=== PATIENT | female | born 1985 | race Caucasian/White ===

== ENCOUNTER → 2017-12-26 07:05 | Outpatient (CLI) | payer OTHER, SELFPAY ==
[2017-12-26 07:39] LABS: hCG Titer Quant., Serum 569 mIU/mL (<9 non-preg)
== END ==
PROVIDERS: Family Provider Family Medicine; PCP Family Medicine; Visit Provider Obstetrics & Gynecology Reproductive Endocrinology
DX: Z32.00 Encounter for pregnancy test, result unknown (principal)
CPT/HCPCS: 36415; 84702

== ENCOUNTER → 2017-12-28 07:13 | Outpatient (CLI) | payer OTHER, SELFPAY ==
[2017-12-28 07:59] LABS: hCG Titer Quant., Serum 1350 mIU/mL (<9 non-preg)
[2017-12-29 07:02] LABS: Thyroid Stim Hormone (TSH) 3.71 uIU/mL (0.358-3.74)
== END ==
PROVIDERS: Family Provider Family Medicine; PCP Family Medicine; Visit Provider Obstetrics & Gynecology Reproductive Endocrinology
DX: Z32.00 Encounter for pregnancy test, result unknown (principal)
CPT/HCPCS: 36415; 84443; 84702

== ENCOUNTER → 2018-01-06 10:30 | Outpatient (CLI) | payer OTHER, SELFPAY ==
[2018-01-06 12:14] LABS: hCG Titer Quant., Serum 19298 mIU/mL (<9 non-preg)
== END ==
PROVIDERS: Family Provider Family Medicine; PCP Family Medicine; Visit Provider Obstetrics & Gynecology
DX: O20.0 Threatened abortion (principal); Z3A.00 Weeks of gestation of pregnancy not specified
CPT/HCPCS: 36415; 84702

== ENCOUNTER 2018-07-02 15:15 | Outpatient (CLI) | payer OTHER, SELFPAY ==
[2018-07-02 15:36] VITALS: BMI 28.0
[2018-07-02 16:33] LABS: Mucous, Urine 0 SEEN /hpf (<or=2+); Squamous Epithelial Cells - UA 0 SEEN /hpf (5-10); White Blood Cells 0 SEEN /hpf (0-5)
[2018-07-02 16:37] LABS: Color, Urine Yellow (Yellow); Glucose, Dipstick Normal (Normal); Ketone-Dipstick Negative (Negative); Leukocyte Esterase-Dipstick Negative /ul (Negative); Nitrite-Dipstick Negative (Negative); Occult Blood-Urine Negative /ul (Negative); Protein-Dipstick Negative (Negative); Specific Gravity, Urine 1.005 (1.002-1.030); Urine Bilirubin Dipstick Negative (Negative); Urine Clarity Clear (Clear); Urine Urobilinogen Normal (Normal)
[2018-07-02 16:44] LABS: Bacteria RARE /hpf (None Seen); Red Blood Cells-Urine 0-5 SEEN /hpf (0-5)
[2018-07-02] MEDS: guaiFENesin 10 ML UDC (200MG/10ML) PO (16:53)
--- NOTE | 2018-07-04 18:03 | OB.TRI.NOTE ---
History of Present Illness Date of Service: 07/02/18 Was patient seen by the physician?: No Reason For Visit: BLEEDING Date of Service: 07/02/18 Final SELIN: 09/03/18 Final SELIN Source: US <20 weeks Gestational age: 31 Weeks and 2 Days Allergies No Known Allergies Allergy (Unverified 05/02/18 09:21) - Pertinent Past Medical History Medical History: Past Medical History (Last Reviewed 06/20/18 @ 08:07 by Marianne Calixto) Hyperthyroidism and not yet delivered NST - FHR Rate Baby A Baseline: 120 bpm Variability:: Moderate Accelerations:: 15 x 15 Decelerations:: None NST Reactive:: Yes, Appropriate for gestational age FHR Category:: Category I Uterine Activity:: quiet Impression/Plan 32-year-old 2 para 1 female at 31 weeks. High risk multigravida female with complaint of vaginal bleeding and cramping here for possible threatened labor. Patient was assessed by nursing staff. She had a cervical exam which revealed that she was not dilated and there is no blood on the exam. Patient had a significant cough but no fever. She had been ill for a couple of days. She was given some cough syrup and was sent home to follow-up in the office as needed. She understood to call the office if her illness worsened or she was febrile and we would obtain a chest x-ray. She had no evidence of labor and the heart tones were category 1. Patient was comfortable with plan.
== END 2018-07-02 17:05 | disposition home or self-care (01) ==
LOC: WPOUT 15:25 → WP 15:26
PROVIDERS: Obstetrics & Gynecology; Family Provider Family Medicine; PCP Family Medicine; Referring Provider Obstetrics & Gynecology; Visit Provider Obstetrics & Gynecology
DX: O47.03 False labor before 37 completed weeks of gestation, third trimester (principal); O99.89 Other specified diseases and conditions complicating pregnancy, childbirth and the puerperium; R05 Cough; O99.283 Endocrine, nutritional and metabolic diseases complicating pregnancy, third trimester; E05.90 Thyrotoxicosis, unspecified without thyrotoxic crisis or storm; Z3A.31 31 weeks gestation of pregnancy
CPT/HCPCS: 59025; 59050; 81001; 99218; G0378

== ENCOUNTER 2018-09-10 17:05 | Inpatient (IN) | payer OTHER, SELFPAY ==
[2018-09-10 17:23] VITALS: BMI 30.3
[2018-09-10] MEDS: miSOPROStol 25 MCG TABLET VAGINAL (17:34)
[2018-09-10 18:17] LABS: Hematocrit 38.3 % (37-47); Hemoglobin 13.3 g/dl (12.0-15.0); Mean Corp Hgb Conc 34.7 g/gl (32-36); Mean Corpuscular Hgb 30.9 pg (27.0-32.0); Mean Corpuscular Volume 89.1 fL (81-99); Mean Platelet Vol. 10.5 fl (6.2-12.0); Platelet Count 209 K/mm3 (150-450); RBC Distribution Width CV 13.3 % (11.6-14.6); White Blood Count 11.7 K/mm3 (4.4-11.0)
[2018-09-10 18:18] LABS: Scan Indicated on CBC? Y/N NO
[2018-09-10] MEDS: Lactated Ringers 1,000 ML 50 ML IV (19:56)
[2018-09-10] MEDS: 0.9% Normal Saline 100 ML IV.SOLN. INTRA-UTER (20:44)
--- NOTE | 2018-09-10 21:00 | PCM.HP.OB ---
History Date of Admission: 09/10/18 Final SELIN: 09/03/18 Final SELIN Source: US <20 weeks Gestational age: 41 Weeks and 0 Days History of this : This is a 32 year-old, G 2P1 @ 41 weeks for induction of labor. No ctxs. Good FM. No VB/LOF. result of in vitro h/o one very early SAB h/o mild hypothyroidism Medical History: Medical History (Last Reviewed 08/07/18 @ 08:10 by Marianne Calixto) Hyperthyroidism E05.90 and not yet delivered Z34.90 Allergies No Known Allergies Allergy (Verified 09/10/18 17:25) Home Medications: Home Medications Levothyroxine Sodium [Synthroid] 50 mcg PO DAILY 07/02/18 Vits [Prenatabs FA] 1 tablet PO DAILY 07/02/18 Smoking Status: Never smoker Alcohol: None Number of Fetus(es): 1 Heart Tracing: normal baseline, moderate variability, + accels. TOCO Analysis: no regular ctxs History Past Pregnancies: Past Pregnancies Delivery Date Name GA/Weeks Outcome Route Weight Gender Labor Length Anesthesia Delivery Location Provider FOB Expected Infant Delivery Method: Spontaneous Vaginal Describe any other labor & delivery plans:: epidural Review of Systems Constitutional: Denies: Anorexia, Chills HEENT: Denies: Difficulty Hearing Cardiovascular: Denies: Chest Pain Respiratory: Denies: Cough Skin: Denies: Rash Physical Exam General: Alert, Cooperative, No apparent distress Cardiovascular: Regular rate, Regular Rhythm Lungs: Clear to auscultation Abdomen: Soft, Non-Distended, Distended Extremities:: No edema 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 Estimated gestational size: Appropriate for gestational size Presentation: Cephalic Cervix Dilation (cm): 1 Station: -1 Effacement (%): 70 - soft, posterior Assessment/Plan All Active Problems (Last Reviewed 08/07/18 @ 08:10 by Marianne Calixto) Segmental and somatic dysfunction of cervical region (Acute) Segmental and somatic dysfunction of thoracic region (Acute) Segmental and somatic dysfunction of pelvic region (Acute) Segmental and somatic dysfunction of sacral region (Acute) Segmental and somatic dysfunction of lumbar region (Acute) This is a 32 year-old, @ 41 weeks for induction of labor had one dose of cytotec for cervical ripening, not feeling many contractions yet. Currie placed over stylette in usual sterile fashion and inflated to 30 cc. Placement over internal os confirmed. Patient and fetus tolerated well EFW < 4500 gm, pelvis clinically adequate to expect vaginal delivery Epidural, NO or nubain prn
[2018-09-10] MEDS: Ondansetron 4 MG/2 ML Vial IV (22:43)
[2018-09-10] MEDS: Oxytocin 30 units/NS 500 ml 30 UNITS/500 ML IV.SOLN IV (23:02)
[2018-09-10] MEDS: Labetalol 100 MG Tablet PO (23:30)
[2018-09-11] MEDS: Nalbuphine 10 MG/ML Ampul IV (02:07)
[2018-09-11] MEDS: Lactated Ringers 1,000 ML 50 ML IV ×4 (05:13→19:50)
--- NOTE | 2018-09-11 08:35 | PCM.PN.BLA ---
Progress Note Patient denies headache, visual changes, or epigastric pain. Contraction pain is approximately a 4 out of 10. She does appreciate them but does not think they are very painful. Abdomen soft, nontender, gravid Extremities: Trace edema, 2+ DTRs, no clonus Cervix is 5, 70, -1 station, head well applied. Artificial rupture membranes performed with return of small amount of clear fluid. IUPC placed Heart tones show normal baseline with moderate variability and no recurrent decelerations. Tocometer shows contractions every 2-3 minutes per 32-year-old female with now Pitocin and artificial rupture membranes induction of labor. Status post 1 dose of vaginal Cytotec and Currie cervical ripening. Blood pressure is trending back up after 1 dose of labetalol. Patient plans to get epidural now so will not give another dose of antihypertensives unless blood pressure remains elevated after epidural, or blood pressures enter the severe range. Continue expectant management. Titrate Pitocin as needed.
[2018-09-11] MEDS: Ondansetron 4 MG/2 ML Vial IV ×2 (09:17→17:15)
[2018-09-11] MEDS: fentaNYL-bupivacaine (epidural) 100 ML BAG EPIDURAL ×3 (09:45→18:25)
[2018-09-11] MEDS: ePHEDrine Sulfate 50 MG/ML Ampul SC (11:20)
[2018-09-11] MEDS: Sodium Citrate/Citric Acid 30 ML UDC PO (22:36)
[2018-09-11] MEDS: Cefazolin 2 GM in 0.9% Normal Saline 100 ML IV (22:45)
[2018-09-11] MEDS: Oxytocin 30 units/NS 500 ml 30 UNITS/500 ML IV.SOLN 167 UNITS IV (23:06)
[2018-09-11] MEDS: Ketorolac 30 MG/ML Syringe IV (23:35)
--- NOTE | 2018-09-11 23:48 | PCM.OB.CSR ---
Delivery Classification: SASHA Final SELIN: 09/03/18 Final SELIN Source: US <20 weeks Gestational age: 41 Weeks and 1 Days Indications for : - - arrest of descent Description of Procedure: Preop diagnosis: 41-week , meconium stained fluid, arrest of descent Operative diagnosis: Same Surgeon: Venessa Siddiqui MD Supervisor [employer]:Venecia MARIE Procedure: Primary low transverse section Via Pfannenstiel skin incision The patient was complete and pushed for approximately 45 minutes. There is no significant descent. She was then allowed to labor down. She began to push again. She pushed for a total of over 3 hours. At the end of that time, she made no significant descent. The station was still plus 1 out of 5 station. Her efforts were adequate. The head was asynclitic. The patient had undergone multiple position changes and pushed in multiple different positions. The fluid had progressed to meconium-stained. At this point discussed with the patient and her risk benefits and alternatives to section. They desire to proceed. The patient was taken to the operating room. She was prepped and draped in the dorsal supine position with a leftward tilt. A Pfannenstiel skin incision was made approximately 2 cm above the symphysis pubis and carried through to underlying layer fascia with the scalpel. The fascia was incised incised in the midline and extended laterally with the Ferguson scissors. The fascia was dissected off the rectus muscles with blunt and sharp dissection. The rectus muscles were in the midline and the peritoneum was entered bluntly. The peritoneal incision was stretched and the bladder blade was placed. The uterine incision was made in a low transverse fashion with the scalpel and extended superiorly and inferiorly with blunt dissection. Moderate meconium-stained fluid returned. With some difficulty I got my head under the vertex. I then brought it up steadily until the suction broke. The 's head was brought to the incision in the flexed position and delivered without difficulty. The remainder of the infant was delivered with gentle traction and fundal pressure in the standard fashion. The mouth and nares were bulb suctioned. The cord was clamped and cut as the infant was stimulated. Cord clamping was only delayed about 20 seconds, at that point the was still somewhat holding his breath and the decision was made to cut the cord and handed him off for possible resuscitation. The was handed off to the waiting nursing staff. As he arrived at the warmer, he began a vigorous cry. The placenta was delivered with fundal massage and gentle traction in the standard fashion. The uterus was exteriorized and cleared of all clots and debris. There was a cervical laceration extending near the midline of the cervix inferiorly approximate 3 cm long. Care was taken to ensure the bladder was dissected off adequately around this. This laceration was then oversewn with #1 Vicryl suture and then a second imbricating layer. The uterine incision was then closed with #1 Vicryl in a running locked fashion. A second layer of the same suture was used in an imbricating fashion. The incision was examined and was found to be hemostatic. The uterus was placed back into the peritoneal cavity and hemostasis was again confirmed. The rectus muscles were examined and any bleeding was Bovie cauterized. The parietal peritoneum and rectus muscles were closed en bloc with an 0 Vicryl running suture. The surgical teams outer gloves were then changed. The rectus fascia was examined and any bleeding was Bovie cauterized and the rectus fascia was closed with 1 Vicryl suture in a running standard fashion. The subcutaneous tissue was examining and any bleeding was Bovie cauterized. The subcutaneous tissue was reapproximated with 3-0 Vicryl suture. The skin was closed in a subcuticular fashion with Monocryl suture. Performed the entire procedure with assistance. All sponge, lap, and needle counts were correct. The patient was taken to her room for recovery in a stable condition. Amniotic Membrane Rupture Type: Artificial Amniotic Fluid Description: Lightly stained meconium - originally clear Placenta Disposition: Sent to Pathology Drain: Currie to straight drain Fluids Replaced: 1000cc Cord Entanglement: Around neck x 1, loose Nuchal Cord Compression: Without compression Cord Vessel Description: 3 Vessels Esitmated Blood Loss (ml): 800 Infant Gender: Male Delayed cord clamping: No Complications: None - Admit VTE Documentation VTE Present on Admission: No VTE Mechan Device Prophylaxis: SCD's VTE Pharm Prophylaxis ordered?: No Reason prophylaxis not ordered:: Procedure Not Indicated
[2018-09-11 23:55] VITALS: BP 128/71; BP 150/90; PULSE 79; RESP 18; TEMP 36.9; O2SAT 97
[2018-09-11] MEDS: Lactated Ringers 1,000 ML 100 ML IV (23:55)
[2018-09-12] VITALS (23 sets, daily range): BP systolic 100–150; BP diastolic 50–90; PULSE 70–88; RESP 16–18; TEMP 36.6–37.3; O2SAT 95–99
--- NOTE | 2018-09-12 02:23 | NURSING ---
@ 0210 epidural catheter removed; blue tip intact
[2018-09-12] MEDS: Ketorolac 30 MG/ML Syringe IV ×3 (06:11→18:34)
[2018-09-12] MEDS: 0.9% Saline Lock 10 ML Syringe IV ×3 (06:12→18:34)
[2018-09-12] MEDS: Levothyroxine 50 MCG Tablet PO (06:12)
[2018-09-12 06:59] LABS: Hematocrit 31.8 % (37-47); Hemoglobin 10.8 g/dl (12.0-15.0); Mean Corpuscular Hgb 30.9 pg (27.0-32.0); Mean Corpuscular Volume 91.1 fL (81-99); Mean Platelet Vol. 10.8 fl (6.2-12.0); Platelet Count 162 K/mm3 (150-450); RBC Distribution Width CV 13.4 % (11.6-14.6); RBC Distribution Width SD 43.1 fl (35.1-43.9); Red Blood Count 3.49 M/mm3 (4.2-5.4); White Blood Count 17.6 K/mm3 (4.4-11.0)
[2018-09-12 07:00] LABS: Scan Indicated on CBC? Y/N NO
--- NOTE | 2018-09-12 07:51 | PCM.PN.OB ---
Subjective: pt seen at bedside, doing well. pt reports good pain control. lochia mild. breast feeding. Denies CP, SOB, dizziness. - Physical Exam General: Alert Abdomen: Soft, Non-Distended, - - fundus firm Extremities: No Calf Tenderness Vital Signs Temp Pulse Resp BP Pulse Ox 97.9 F 84 17 110/63 97 09/12/18 06:10 09/12/18 07:25 09/12/18 07:25 09/12/18 06:10 09/12/18 07:25 Oxygen Delivery Method Room Air Weight: 82.7 kg Body Mass Index (BMI) 30.3 Intake and Output for Last 24 Hours 09/10/18 09/11/18 09/12/18 23:59 23:59 23:59 Intake Total 6297 / 6297 1497 / 1497 Output Total 1425 / 1425 900 / 900 Balance 4872 / 4872 597 / 597 Laboratory Tests Past 24 Hrs 09/12/18 06:20 WBC 17.6 H RBC 3.49 L Hgb 10.8 L Hct 31.8 L MCV 91.1 MCH 30.9 MCHC 34.0 RDW 13.4 RDW Differential 43.1 Plt Count 162 MPV 10.8 Medical Necessity - Tobacco Use Smoking Status: Never smoker Assessment/Plan All Active Problems (Last Reviewed 08/07/18 @ 08:10 by Marianne Calixto) Segmental and somatic dysfunction of cervical region (Acute) Segmental and somatic dysfunction of thoracic region (Acute) Segmental and somatic dysfunction of pelvic region (Acute) Segmental and somatic dysfunction of sacral region (Acute) Segmental and somatic dysfunction of lumbar region (Acute) POD#1, doing well routine care pain mgmt labs reviewed yogesh baum and ambulation later today.
[2018-09-12] MEDS: Lactated Ringers 1,000 ML 100 ML IV (10:04)
[2018-09-12] MEDS: Senna/Docusate Sodium 1 Tablet PO (10:04)
--- NOTE | 2018-09-13 | PLAC_PTH ---
PATIENT: BINTA MORATAYA LOC: [facility] U#:[id number] AGE/SX: 32/F ROOM: WP004 RE09/10/[address]: Dr. Venessa Siddiqui MD : 1985 BED: 1 DIS: 09/14/2018 SPEC #: [id number] RECD: 09/13/18 16:00 STATUS: STELLA REJohnathon #: [id number] SALOMON: 09/13/18 00:[address]: Venessa Siddiqui DEPT: SURGICAL PATHOLOGY RECD BY: Alexander Bello ENTERED: 09/14/18 13:39 SP TYPE: PLACENTA OTHR DR: Dr. Uli Hightower MD Tissues: Placenta, NOS Procedures: Surgery Specimen Level V HEADER OPERATION: Primary section PRE-OP DIAGNOSIS: Meconium TISSUE SUBMITTED: Placenta MICROSCOPIC DIAGNOSIS Placenta: Placental disc - third trimester placenta (526 gm). - Focal areas of intraparenchymal hemorrhage (1 cm in greatest dimension). - Focal acute vasculitis of subamniotic blood vessels. Membranes - mild acute chorioamnionitis. - A few pigment laden macrophages consistent with meconium staining. Umbilical cord - three blood vessels and no pathologic diagnosis. DORIAN:gracia 09/15/18 MICROSCOPIC DESCRIPTION Slides are reviewed. GROSS DESCRIPTION SPECIMEN: PLACENTA / CLINICAL INFORMATION: A. Weight: 3.535 kg B. Gestational Age: 41 weeks C. Sex: Male PLACENTAL WEIGHT (POST FIXATION): 526 gm PLACENTAL DIMENSIONS: 19 x 20 x 3 cm PLACENTAL SHAPE: Usual ovoid PLACENTAL WEIGHT FOR GESTATIONAL AGE: Within 10-99th percentile MEMBRANES - Present A. Insertion: Marginal B. Site of rupture from edge: 3 cm from edge of placental disc C. Color of membrane: Mobley-mucoidy D. Abnormalities: None UMBILICAL CORD - Present A. Color: Mobley-rascon B. Insertion: Central C. Length: 29 cm D. Diameter: 1 cm E. Number of vessels: Three F. Abnormalities: None PLACENTAL DISC - Present A. Color of surface: Mobley-rascon B. surface abnormalities: None C. Maternal cotyledons: Intact with minimal tears D. Attached retro placental clot: No clot E. Cut surface: Dark red and spongy F. Lesions: Sections reveal two mobley, indurated lesions each measuring 1 cm in greatest dimension. G. Separate clot: Absent SECTIONS SUBMITTED: 1. Membrane roll 2. Cord, maternal end 3. Cord, end 4. Placental disc, and maternal surfaces, lesion 5. Placental disc, and maternal surfaces, lesion 6. Placental disc, and maternal surfaces DORIAN:gracia 09/14/18 TC:2 CPT: 83133
[2018-09-13] MEDS: 0.9% Saline Lock 10 ML Syringe IV ×4 (00:05→18:28)
[2018-09-13] MEDS: Ketorolac 30 MG/ML Syringe IV ×4 (00:05→18:27)
[2018-09-13] MEDS: Senna/Docusate Sodium 1 Tablet PO ×2 (00:05→09:29)
[2018-09-13 01:50] VITALS: BP 111/65; PULSE 73; RESP 16; TEMP 36.5; O2SAT 96
[2018-09-13] MEDS: Levothyroxine 50 MCG Tablet PO (06:09)
--- NOTE | 2018-09-13 08:37 | PCM.PN.OB ---
Subjective: pain well controlled, average lochia, no N/V. - Physical Exam General: Alert, Cooperative, No apparent distress Abdomen: Soft, Non-Distended, Tender - appropriately Extremities: Edema - 1+ Skin: Incision - bandage clean, dry and intact Vital Signs Temp Pulse Resp BP Pulse Ox 97.7 F L 73 16 111/65 96 09/13/18 01:50 09/13/18 01:50 09/13/18 01:50 09/13/18 01:50 09/13/18 01:50 Oxygen Delivery Method Room Air Weight: 82.7 kg Body Mass Index (BMI) 30.3 Intake and Output for Last 24 Hours 09/11/18 09/12/18 09/13/18 23:59 23:59 23:59 Intake Total 6297 / 6297 2357 / 2357 Output Total 1425 / 1425 2500 / 2500 Balance 4872 / 4872 -143 / -143 Medical Necessity - Tobacco Use Smoking Status: Never smoker Assessment/Plan All Active Problems (Last Reviewed 08/07/18 @ 08:10 by Marianne Calixto) Segmental and somatic dysfunction of cervical region (Acute) Segmental and somatic dysfunction of thoracic region (Acute) Segmental and somatic dysfunction of pelvic region (Acute) Segmental and somatic dysfunction of sacral region (Acute) Segmental and somatic dysfunction of lumbar region (Acute) POD#2 doing well likely home tomorrow
[2018-09-13] MEDS: Acetaminophen 500 MG Tablet 1000 MG PO ×2 (09:29→20:04)
[2018-09-13 09:33] VITALS: BP 122/83; PULSE 66; RESP 16; TEMP 37.3
[2018-09-13 15:03] VITALS: BP 121/83; PULSE 70; RESP 16; TEMP 37.2
[2018-09-13 20:07] VITALS: BP 136/76; PULSE 70; RESP 18; TEMP 36.9; O2SAT 95
[2018-09-13] MEDS: Docusate Sodium 100 MG Capsule PO (21:41)
[2018-09-14] MEDS: Naproxen 250 MG Tablet PO (00:21)
[2018-09-14 02:32] VITALS: BP 133/77; PULSE 55; RESP 16; TEMP 36.6; O2SAT 95
[2018-09-14] MEDS: Levothyroxine 50 MCG Tablet PO (06:04)
--- NOTE | 2018-09-14 08:30 | DCINST_ITS ---
Discharge Diet: No Restrictions Discharge Activity: May not drive while taking narcotic pain medications., May Shower May resume sexual activity in: 4-6 weeks Weight Bearing Status: Weight bearing as tolerated Call your doctor if your incision/area has: Continuous Slow Oozing, Sudden Increased Bleeding, Increased Pain/ Swelling, Increased Redness, Foul Smelling Discharge, Swelling at the incision site Additional Instructions: If you experience any of the following, contact your healthcare provider. * Bleeding that soaks a pad every hour for 2 hours * Fever 100.4 or higher * Unrelieved incision or abdominal pain * Swelling, redness, discharge or bleeding from your incision or episiotomy site * Your incision begins to separate * Problems urinating (including inability to urinate or burning while urinating). * Visual changes * Severe headache * Flu-like symptoms * Pain or redness in one of both of your breasts * Pain, warmth, tenderness or swelling in your legs, especially the calf area * Frequent nausea and vomiting * Symptoms of depression or anxiety If you experience any of the following, call 911 or go to the nearest Emergency Room. * Chest pain * Problems breathing * Seizure activity * Partial or complete paralysis of a body part, slurred speech, weakness or drooping of the face, or a sudden inability to walk or hold your balance Allergies/Adverse Reactions: Allergies No Known Allergies Allergy (Verified 09/10/18 17:25) Medications to take at Discharge Levothyroxine Sodium [Synthroid] 50 mcg PO DAILY 07/02/18 Vits [Prenatabs FA ] 1 tablet PO DAILY 07/02/18 Oxycodone HCl/Acetaminophen [Percocet 5/325] 1 tab PO Q6H PRN PRN 3 Days #10 tab 09/14/18 The following prescriptions were given: Oxycodone HCl/Acetaminophen [Percocet 5/325] 1 tab PO Q6H PRN PRN 3 Days #10 tab PRN Reason: Pain Follow-Up: Call to make an appointment with your doctor for an incision check in 1-2 weeks. You will also need a 6 week post- follow up appointment. Test results from this visit will be discussed in further detail at your follow- up appointment, if applicable. Primary Care Physician: Uli Hightower MD [Primary Care Provider] -
--- NOTE | 2018-09-14 08:30 | PCM.PN.OB ---
Subjective: No complaints - Physical Exam General: Alert, Oriented x3 Abdomen: Soft, Non Tender, Non-Distended - ff mid & @ umbilicus; incision - bandage c/d/i Extremities: No Calf Tenderness Vital Signs Temp Pulse Resp BP Pulse Ox 97.8 F 55 L 16 133/77 H 95 09/14/18 02:32 09/14/18 02:32 09/14/18 02:32 09/14/18 02:32 09/14/18 02:32 Oxygen Delivery Method Room Air Weight: 182 lb 5.156 oz Body Mass Index (BMI) 30.3 Intake and Output for Last 24 Hours 09/12/18 09/13/18 09/14/18 23:59 23:59 23:59 Intake Total 2357 / 2357 Output Total 2500 / 2500 Balance -143 / -143 Medical Necessity - Tobacco Use Smoking Status: Never smoker Assessment/Plan All Active Problems (Last Reviewed 08/07/18 @ 08:10 by Marianne Calixto) Segmental and somatic dysfunction of cervical region (Acute) Segmental and somatic dysfunction of thoracic region (Acute) Segmental and somatic dysfunction of pelvic region (Acute) Segmental and somatic dysfunction of sacral region (Acute) Segmental and somatic dysfunction of lumbar region (Acute) POD#3 D/c home
[2018-09-14 10:00] VITALS: BP 120/70; PULSE 72; RESP 18; TEMP 37.1
[2018-09-14 10:55] VITALS: BP 120/70; PULSE 72; RESP 16; TEMP 37.1
--- NOTE | 2018-09-15 08:36 | DS.PCM_ITS ---
Discharge Date and Diagnosis Date of Admission: 09/10/18 Date of Discharge: 09/14/18 Hospital Course and Treatment Operations: - - primary low transverse c/s via pfannensteil skin incision Procedures: None Summary of Care Provided: The patient is a 32 year YOF presented for induction of labor at 41 weeks. Cytotec/pitocin and baum and AROM for induction. Progressed to complete +1 station. Pushed for 3 hrs and complete for 4.5 hrs, no significant descent. Underwent primary LTCS w/ double layer uterine closure with 1 vicryl. She did well postop. By POD #3 she was ambulating, urniating and tolerating regular d iet without difficulty. She was d/marcia home w/ routine instructions and prescriptions and to f/u in my office in 1-2 and 6 weeks. [] - Physical Exam Vital Signs Temp Pulse Resp BP Pulse Ox 98.8 F 72 16 120/70 95 09/14/18 10:55 09/14/18 10:55 09/14/18 10:55 09/14/18 10:55 09/14/18 02:32 Oxygen Delivery Method Room Air Weight: 82.7 kg Body Mass Index (BMI) 30.3 Discharge Diet: No Restrictions Discharge Activity: May not drive while taking narcotic pain medications., May Shower May resume sexual activity in: 4-6 weeks Weight Bearing Status: Weight bearing as tolerated Call your doctor if your incision/area has: Continuous Slow Oozing, Sudden Increased Bleeding, Increased Pain/ Swelling, Increased Redness, Foul Smelling Discharge, Swelling at the incision site Home Medications: Medications to take at Discharge Levothyroxine Sodium [Synthroid] 50 mcg PO DAILY 07/02/18 Vits [Prenatabs FA ] 1 tablet PO DAILY 07/02/18 Oxycodone HCl/Acetaminophen [Percocet 5/325] 1 tab PO Q6H PRN PRN 3 Days #10 tab 09/14/18 Following Prescrptions Were Given to Patient: Oxycodone HCl/Acetaminophen [Percocet 5/325] 1 tab PO Q6H PRN PRN 3 Days #10 tab PRN Reason: Pain Primary Care Physician: Uli Hightower MD [Primary Care Provider] - Medical Necessity - Tobacco Use Smoking Status: Never smoker Meaningful Use Info Meaningful Use Diagnoses (Choose all that apply): None applicable
[2018-09-18 15:44] LABS: Pathology Specimen OB SEE PATHOLOGY REPORT
== END 2018-09-14 10:55 | disposition home or self-care (01) | DRG 787 ==
PROVIDERS: Obstetrics & Gynecology; Admitting Provider Obstetrics & Gynecology; Family Provider Family Medicine; PCP Family Medicine; Visit Provider Obstetrics & Gynecology
DX: O62.1 Secondary uterine inertia (principal); O99.354 Diseases of the nervous system complicating childbirth; G43.909 Migraine, unspecified, not intractable, without status migrainosus; O69.81X0 Labor and delivery complicated by cord around neck, without compression, not applicable or unspecified; O48.0 Post-term pregnancy; O77.0 Labor and delivery complicated by meconium in amniotic fluid; O99.284 Endocrine, nutritional and metabolic diseases complicating childbirth; E03.9 Hypothyroidism, unspecified; Z3A.41 41 weeks gestation of pregnancy; Z37.0 Single live birth
CPT/HCPCS: 59050; 85027; 86850; 86900; 88307; 99218; J7120; A4216; G0378; J2405; J3490

== ENCOUNTER 2018-09-17 22:55 | Inpatient (IN) | payer OTHER, SELFPAY ==
[2018-09-17] VITALS (14 sets, daily range): BP systolic 144–167; BP diastolic 82–105; PULSE 54–76; BMI 27.4
[2018-09-17] MEDS: 0.9% Saline Lock 10 ML Syringe IV ×2 (21:35→22:03)
[2018-09-17 21:48] LABS: Hematocrit 34.7 % (37-47); Mean Corp Hgb Conc 34.6 g/gl (32-36); Mean Corpuscular Hgb 30.8 pg (27.0-32.0); Mean Platelet Vol. 9.3 fl (6.2-12.0); Platelet Count 360 K/mm3 (150-450); RBC Distribution Width CV 12.2 % (11.6-14.6); RBC Distribution Width SD 38.8 fl (35.1-43.9); White Blood Count 9.8 K/mm3 (4.4-11.0)
[2018-09-17 21:49] LABS: Scan Indicated on CBC? Y/N NO
[2018-09-17 21:56] LABS: Prothrombin Time (Protime)PT. 12.7 SECONDS (11.7-14.9)
[2018-09-17 21:57] LABS: Partial Thromboplast Time 33.9 Seconds (24.1-36.2)
[2018-09-17] MEDS: HYDROmorphone 1 MG/ML Syringe IV (22:03)
[2018-09-17 22:06] LABS: AST(SGOT) 16 U/L (15-37); Alanine Aminotransfer ALT/SGPT 16 U/L (13-56); Creatinine, Serum 0.59 mg/dL (0.55-1.02); EST Glomerular Filtration Rate 124 mL/min (>60); Est Glom Filt Rate - Afr Amer 150 mL/min (>60); Estimated Creatinine Clearance 123.18 ml/min; Uric Acid 4.3 mg/dL (2.6-6.0)
[2018-09-17] MEDS: Lactated Ringers 1,000 ML 15 ML IV (23:15)
[2018-09-17] MEDS: Labetalol 100 MG/20 ML Vial 20 MG IV (23:16)
[2018-09-18] VITALS (29 sets, daily range): BP systolic 116–164; BP diastolic 69–91; PULSE 50–81; RESP 16–20; TEMP 36.1–36.9; O2SAT 95–99
[2018-09-18] MEDS: Magnesium Sulfate 20 GM/500 ML BAG IV ×3 (00:04→21:13)
[2018-09-18] MEDS: HYDROmorphone 1 MG/ML Syringe IV ×2 (00:43→06:11)
--- NOTE | 2018-09-18 03:52 | NURSING ---
2100 Called DM to inform her that patient was on unit and informed her of BP's and that patient complains of CLEMENTS rating 8/10 that is behind eyes and generalized, patient states that she has a hx of migraines and is unsure if this is a migraine or more; this RN stated that there are no other symptoms present at this time; DM stated to started SL and draw Pre-E labs except for urine creatine ratio and to continue serial BP at this time.
--- NOTE | 2018-09-18 03:57 | NURSING ---
2119 DM called with orders for pain medication at this time, RN verbalized understanding.
--- NOTE | 2018-09-18 03:58 | NURSING ---
2250 Called DM with lab results, BP and patient still complaining of pain; DM ordered magnesium to be started and labetalol protocol to be started a this time, this RN verbalized understanding.
--- NOTE | 2018-09-18 04:00 | NURSING ---
0035 Called DM at this time to inform her that patients HR is less than 60 BPM and that oral Labetalol was not administered d/t HR and that patient was requesting more pain medication at this time; DM stated to administer pain medication at this time and that is BP were to increase above 160/110 to administer 200mg labetalol PO at that time; this RN verbalized understanding.
[2018-09-18] MEDS: Acetaminophen 325 MG Tablet 650 MG PO (05:08)
[2018-09-18] MEDS: 0.9% Saline Lock 10 ML Syringe IV ×2 (06:12→23:09)
--- NOTE | 2018-09-18 09:10 | NURSING ---
Dr. Siddiqui at bedside evaluating patient. Plan for Nifedipine XL 30 mg PO now.
[2018-09-18] MEDS: NIFEdipine 30 MG Tablet PO (09:40)
[2018-09-18] MEDS: Ondansetron 4 MG/2 ML Vial 8 MG IV (10:40)
--- NOTE | 2018-09-18 13:11 | PCM.HP.STD ---
History of Present Illness Date of Admission: 09/17/18 Chief Complaint: headache The patient is a 32 year old female 2 para 1011 who presented postop day #6 status post primary low transverse section for arrest of descent at 10 cm with complaint of a headache 8 out of 10. The headache started on 1215 late at night and lasted all day on 1216. On the evening of 1216, she checked her blood pressure at home and found it remarkably elevated and was told to come to labor and delivery. The headache was frontal, she had no visual disturbances or epigastric pain. It was not relieved with Percocet or NSAIDs. Her postoperative abdominal pain has been steadily improving. She denies any nausea or vomiting. [] Past Medical History Medical History: Medical History (Last Reviewed 08/07/18 @ 08:10 by Marianne Calixto) Hyperthyroidism E05.90 and not yet delivered Z34.90 Allergies No Known Allergies Allergy (Verified 09/17/18 21:49) Home Medications: Ambulatory Orders Medication Instructions Recorded Levothyroxine Sodium [Synthroid] 50 mcg PO DAILY 07/02/18 Vits [Prenatabs FA ] 1 tablet PO DAILY 07/02/18 Oxycodone HCl/Acetaminophen 1 tablet PO Q6H PRN PRN 09/17/18 [Percocet 5/325] Surgical History: - - on 09/11/2018 Psychiatric History: No pertinent psych hx Lives: With Family Smoking Status: Never smoker Drugs: None Review of Systems Constitutional: Denies: Anorexia, Chills, Fever Eyes: Denies: Blurred vision, Double vision HEENT: Reports: Head Aches. Denies: Sinus Drainage Cardiovascular: Denies: Chest Pain, Chest Pressure, Chest Tightness, Edema Respiratory: Denies: Cough, Shortness of Breath Gastrointestinal: Reports: Abdominal Pain - appropriate for postop, Constipation Genitourinary: Denies: Dysuria, Frequency, Hematuria Skin: Denies: Jaundice, Rash Neurological: Denies: Balance problems, Change in Speech, Slurred speech, Confusion, Focal weakness, Seizures VTE Information - Inpt Only VTE Present on Admission: No VTE Mechan Device Prophylaxis: SCD's Reason prophylaxis not ordered:: Procedure Not Indicated - Physical Exam General: Alert, Cooperative, No apparent distress HEENT: EOMI Oral: Moist Mucosa Neck: Supple Lungs: Clear to auscultation, Normal air movement, No wheeze Cardiovascular: Regular rate, Regular Rhythm Abdomen: Bowel Sounds Present, Soft, Non-Distended, Tender - appropriately Extremities: No edema, - - 2+ DTrs, one beat of clonus Skin: Incision - clean, dry and intact Neurological: Cranial nerves II-XII grossly intact, Deep Tendon Reflexes 2+/4 and Symmetrical, Neuro grossly intact Psych/Mental Status: Normal Affect, Appropriate Vital Signs Temp Pulse Resp BP Pulse Ox 97.4 F L 70 16 120/74 98 09/18/18 12:00 09/18/18 12:00 09/18/18 12:00 09/18/18 12:00 09/18/18 12:00 Oxygen Delivery Method Room Air Weight: 74.843 kg Body Mass Index (BMI) 27.4 Intake and Output for Last 24 Hours 09/16/18 09/17/18 09/18/18 23:59 23:59 23:59 Intake Total 1550 / 1550 Output Total 900 / 900 Balance 650 / 650 Laboratory Tests Past 24 Hrs 09/17/18 09/17/18 09/17/18 21:35 21:35 21:35 WBC 9.8 RBC 3.90 L Hgb 12.0 Hct 34.7 L MCV 89.0 MCH 30.8 MCHC 34.6 RDW 12.2 RDW Differential 38.8 Plt Count 360 MPV 9.3 PT 12.7 INR 1.0 APTT 33.9 Creatinine 0.59 Estim Creat Clear Calc 123.18 Est GFR (MDRD) Af Amer 150 Est GFR (MDRD) Non-Af 124 Uric Acid 4.3 AST 16 ALT 16 Assessment/Plan All Active Problems (Last Reviewed 08/07/18 @ 08:10 by Marianne Calixto) Segmental and somatic dysfunction of cervical region (Acute) Segmental and somatic dysfunction of thoracic region (Acute) Segmental and somatic dysfunction of pelvic region (Acute) Segmental and somatic dysfunction of sacral region (Acute) Segmental and somatic dysfunction of lumbar region (Acute) Postoperative day #7 status post primary section at 41+ gestational weeks now with preeclampsia. Blood pressures were in the severe range and with her severe headache, requiring IV Dilaudid to control it, decision was made to admit her for preeclampsia and magnesium prophylaxis. Patient's headache is significantly improved now. We will discontinue the IV Dilaudid and treat her with NSAIDs and oral meds as needed. We will continue the magnesium for 24 hours. If patient is stable at that time we will DC the magnesium. Patient has been started on oral nifedipine to control her blood pressure and her blood pressures are now well controlled. Nifedipine was chosen over labetalol because of the patient's low pulse rate. Patient is understanding and agreement w/ plan. Infant is here and well. Likely home tomorrow w/ close f/u and home BP monitoring.
[2018-09-18] MEDS: Ketorolac 30 MG/ML Syringe IV ×2 (14:09→21:15)
--- NOTE | 2018-09-18 15:19 | NURSING ---
1300 Dr. Siddiqui on unit, evaluating patient. Patient doing well, Toradol ordered per Dr. Siddiqui for pain.
[2018-09-18] MEDS: Ondansetron 4 MG/2 ML Vial IV (16:37)
--- NOTE | 2018-09-18 19:58 | NURSING ---
1956-feeling like she has some double vision, states dr ruiz aware and feels it could be d/t the mag sulfate.
[2018-09-19 03:52] VITALS: BP 109/68; PULSE 69; RESP 18; TEMP 36.7
[2018-09-19] MEDS: Acetaminophen 325 MG Tablet 650 MG PO (04:00)
[2018-09-19] MEDS: Ketorolac 30 MG/ML Syringe IV (05:19)
[2018-09-19] MEDS: 0.9% Saline Lock 10 ML Syringe IV (05:20)
[2018-09-19 05:26] VITALS: BP 134/77; PULSE 67
[2018-09-19] MEDS: Levothyroxine 50 MCG Tablet PO (05:38)
--- NOTE | 2018-09-19 08:29 | PCM.PN.OB ---
Subjective: Patient complain of headache of approximately2/10. Worse when she sits up. No visual changes. It improved last night after Toradol, Tylenol and some caffeine. She was resting comfortably this morning when I went to see her. She denies any chest pain or shortness of breath. - Physical Exam General: Alert, Cooperative, No apparent distress Abdomen: Soft, Non-Distended, Tender - Appropriately Extremities: Edema - Trace Skin: Incision - cLean dry and intact Neurological: Cranial nerves II-XII grossly intact, Deep Tendon Reflexes 2+/4 and Symmetrical, Neuro grossly intact, - - Normal speech, 1 beat of clonus Vital Signs Temp Pulse Resp BP Pulse Ox 98.1 F 67 18 134/77 H 97 09/19/18 03:52 09/19/18 05:26 09/19/18 03:52 09/19/18 05:26 09/18/18 23:03 Oxygen Delivery Method Room Air Weight: 74.843 kg Body Mass Index (BMI) 27.4 Intake and Output for Last 24 Hours 09/17/18 09/18/18 09/19/18 23:59 23:59 23:59 Intake Total 3015 / 3015 Output Total 2450 / 2450 Balance 565 / 565 Medical Necessity - Tobacco Use Smoking Status: Never smoker Assessment/Plan All Active Problems (Last Updated 09/18/18 @ 13:14 by Venessa Siddiqui MD) and not yet delivered (Acute) Segmental and somatic dysfunction of lumbar region (Acute) Segmental and somatic dysfunction of sacral region (Acute) Segmental and somatic dysfunction of pelvic region (Acute) Segmental and somatic dysfunction of thoracic region (Acute) Segmental and somatic dysfunction of cervical region (Acute) day #9 at this post primary low transverse section. Readmitted with preeclampsia. Blood pressures are stable on cefepime. Will discharge her home with this. Headache is now mild and able to be controlled with NSAIDs and Tylenol with some caffeine as needed. Will see how her headache and blood pressures do with ambulation this morning and if they stay well controlled, can discharge home later this morning or early this afternoon. Follow-up in my office in 2-3 days or as needed. Return or call with any symptoms of severe preeclampsia. Monitor blood pressures at home.
--- NOTE | 2018-09-19 08:38 | DCINST_ITS ---
Discharge Diet: No Restrictions Discharge Activity: Return to Normal Activity, May not drive while taking narcotic pain medications., May Shower May resume sexual activity in: 4-6 weeks Lifting Restrictions: 20 pounds Additional Activity Instructions:: Nothing in the vagina for 4-6 weeks. You may return to work/school in 6 weeks. Call your doctor if your incision/area has: Continuous Slow Oozing, Sudden Increased Bleeding, Increased Pain/ Swelling, Increased Redness, Foul Smelling Discharge Call your doctor if you observe: Fever of 101 or Higher, Using more than one pad per hour - for 2 hours, - - Severe headache, visual changes, Blood pressure > 165/105. Suture Line Care: Avoid Pulling/Pushing, Avoid Pinching/Bending Cleanse incision/area with: Keep Dressing Clean & Dry Additional Instructions: If you experience any of the following, contact your healthcare provider. * Bleeding that soaks a pad every hour for 2 hours * Fever 100.4 or higher * Unrelieved incision or abdominal pain * Swelling, redness, discharge or bleeding from your incision or episiotomy site * Your incision begins to separate * Problems urinating (including inability to urinate or burning while urinating). * Visual changes * Severe headache * Flu-like symptoms * Pain or redness in one of both of your breasts * Pain, warmth, tenderness or swelling in your legs, especially the calf area * Frequent nausea and vomiting * Symptoms of depression or anxiety If you experience any of the following, call 911 or go to the nearest Emergency Room. * Chest pain * Problems breathing * Seizure activity * Partial or complete paralysis of a body part, slurred speech, weakness or drooping of the face, or a sudden inability to walk or hold your balance Allergies/Adverse Reactions: Allergies No Known Allergies Allergy (Verified 09/17/18 21:49) Medications to take at Discharge Levothyroxine Sodium [Synthroid] 50 mcg PO DAILY 07/02/18 Vits [Prenatabs FA ] 1 tablet PO DAILY 07/02/18 Oxycodone HCl/Acetaminophen [Percocet 5-325] 1 tablet PO Q6H PRN PRN 09/17/18 NIFEdipine [Procardia Xl] 30 mg PO DAILY #30 tablet 09/19/18 The following prescriptions were given: NIFEdipine [Procardia Xl] 30 mg PO DAILY #30 tablet Follow-Up: Call to make an appointment with your doctor for an incision check in 1-2 weeks. You will also need a 6 week post- follow up appointment. Test results from this visit will be discussed in further detail at your follow- up appointment, if applicable. Please Follow Up With: Venessa Siddiqui MD - Keep your appointment in 3 days . When: You will need a post check in 6 weeks. [phone] Primary Care Physician: Uli Hightower MD [Primary Care Provider] -
--- NOTE | 2018-09-19 08:44 | NURSING ---
Dr. Siddiqui rounding on pt. Informed of headache over night, having coffee helped. Informed of last BP. Headache now rating pain 11/12. wanted pt up and shower and eat breakfast, if bp remains stable this am to call in a few hours and pt may be d/c at noon today.
[2018-09-19 08:49] VITALS: BP 133/86; PULSE 68; RESP 18; TEMP 36.7
[2018-09-19] MEDS: Prenatal Vits Tablet 1 TABLET PO (10:40)
[2018-09-19] MEDS: NIFEdipine 30 MG Tablet PO (10:40)
--- NOTE | 2018-09-19 11:55 | NURSING ---
Dr. Siddiqui's office called spoke with Viktoriya SAUNDERS. RN took message, in pt room. RN wanted to update on pt, BP and decreasing headache and determine if wanted to D/C patient.
[2018-09-19 12:04] VITALS: BP 135/82; PULSE 68; RESP 18; TEMP 36.9
--- OUTSIDE RECORDS SUMMARY | 2018-12-20 14:00 | XMS RPT_ITS ---
:1985 Author Organization OHIP Support Name Relationship Address Phone COW Unavailable [address] + [place] [address] LONG, ANTONIO Unavailable [address] + [place] [address] LONG, MEGHA Unavailable [address] + [place] [address] COW Unavailable [address] + [place] [address] LONG, ANTONIO Unavailable [address] + [place] [address] LONG, MEGHA Unavailable [address] + [place] [address] COW Unavailable [address] + [place] [address] LONG, ANTONIO Unavailable [address] + [place] [address] LONG, MEGHA Unavailable [address] + [place] [address] COW Unavailable [address] + [place] [address] LONG, ANTONIO Unavailable [address] + [place] [address] LONG, MEGHA Unavailable [address] + [place] [address] COW Unavailable [address] + [place] [address] LONG, ANTONIO Unavailable [address] + [place] [address] LONG, MEGHA Unavailable [address] + [place] [address] COW Unavailable [address] + [place] [address] LONG, ANTONIO Unavailable [address] + [place] [address] LONG, MEGHA Unavailable [address] + [place] [address] COW Unavailable [address] + [place] [address] LONG, ANTONIO Unavailable [address] + [place] [address] LONG, MEGHA Unavailable [address] + [place] [address] + [place] [address] LEEANN, ANTONIO Unavailable [address] + [place] [address] RAFIA, TODD Unavailable [address] + [place] [address] + [place] [address] LEEANN, ANTONIO Unavailable [address] + [place] [address] RAFIA TODD Unavailable [address] + [place] [address] + [place] [address] LEEANN, ANTONIO Unavailable [address] + [place] [address] RAFIA, TODD Unavailable [address] + [place] [address] + [place] [address] LEEANN, ANTONIO Unavailable [address] + [place] [address] RAFIA TODD Unavailable [address] + [place] [address] + [place] [address] LEEANN, ANTONIO Unavailable [address] + [place] [address] RAFIA, TODD Unavailable [address] + [place] [address] + [place] [address] KAMLA BRADSHAWEW Unavailable [address] + [place] [address] HARINI CORDOVALYN Unavailable [address] + [place] [address] + [place] [address] LEEANN, ANTONIO Unavailable [address] + [place] [address] RAFIA TODD Unavailable [address] + [place] [address] + [place] [address] LEEANN, ANTONIO Unavailable [address] + [place] [address] RAFIA TODD Unavailable [address] + [place] [address] + [place] [address] KAMLA BRADSHAWEW Unavailable [address] + [place] [address] RAFIA TODD Unavailable [address] + [place] [address] + [place] [address] ANTONIO BRADSHAW Unavailable [address] + [place] [address] RAFIAHARINI JORDANLYN Unavailable [address] + [place] [address] Care Team Providers Name Role Phone FLACO YANES Attending Unavailable MIRANDA EMERSON Referring Unavailable FLACO YANES Attending Unavailable YULIYA YANESCA Dianne Referring Unavailable JENNY BARTON Attending Unavailable FLACO YANES Referring Unavailable FLACO YANES Attending Unavailable YULIYA YANESCA Dianne Referring Unavailable FLACO YANES Attending Unavailable FLACO YANES Attending Unavailable FLACO YANES Attending Unavailable FLACO YANES Referring Unavailable FLACO YANES Attending Unavailable FLACO YANES Attending Unavailable YULIYA YANESCA Dianne Referring Unavailable FARZANA, FLACO L Attending Unavailable FARZANA, FLACO L Attending Unavailable NEYISADORAT JOSE, ENRIQUE Attending Unavailable FARZANA, FLACO L Attending Unavailable FARZANA, FLACO L Attending Unavailable FARZANA, FLACO L Attending Unavailable FARZANA, FLACO L Attending Unavailable FARZANA, FLACO L Referring Unavailable FARZANA, FLACO L Attending Unavailable FARZANA, FLACO L Attending Unavailable FARZANA, FLACO L Referring Unavailable Hightower, Uli Primary Care Unavailable Neyhart-Espinal, Enrique Attending Unavailable Neyhart-Espinal, Enrique Admitting Unavailable Maseelall, Miranda Attending Unavailable Maseelall, Miranda Referring Unavailable Hightower, Uli Primary Care Unavailable Maseelall, Miranda Attending Unavailable Maseelall, Miranda Referring Unavailable Hightower, Uli Primary Care Unavailable Farzana, Flaco Attending Unavailable Farzana, Flaco Referring Unavailable Hightower, Uli Primary Care Unavailable Dossie, Kim Wolfe Attending Unavailable Hightower, Uli Referring Unavailable Hightower, Uli Primary Care Unavailable Dossie, Kim Wolfe Attending Unavailable Hightower, Uli Referring Unavailable Hightower, Uli Primary Care Unavailable Dossie, Kim Wolfe Attending Unavailable Hightower, Uli Referring Unavailable Hightower, Uli Primary Care Unavailable Dossie, Kim Wolfe Attending Unavailable Hightower, Uli Referring Unavailable Hightower, Uli Primary Care Unavailable Dossie, Kim Wolfe Attending Unavailable Hightower, Uli Referring Unavailable Hightower, Uli Primary Care Unavailable Dossie, Kim Wolfe Attending Unavailable Hightower, Uli Referring Unavailable Hightower, Uli Primary Care Unavailable Dossie, Kim Wolfe Attending Unavailable Hightower, Uli Referring Unavailable Hightower, Uli Primary Care Unavailable Dossie, Kim Wolfe Attending Unavailable Hightower, Uli Referring Unavailable Hightower, Uli Primary Care Unavailable Farzana, Flaco Admitting Unavailable Farzana, Flaco Attending Unavailable Farzana, Flaco Referring Unavailable Hightower, Uli Primary Care Unavailable Wiswell, Shereen Attending Unavailable Wiswell, Shereen Referring Unavailable Hightower, Uli Primary Care Unavailable Dossie, Kim Wolfe Attending Unavailable Hightower, Uli Referring Unavailable Dossie, Kim Wolfe Attending Unavailable Hightower, Uli Referring Unavailable Dossie, Kim Wolfe Attending Unavailable Hightower, Uli Referring Unavailable PROBLEMS PROBLEMS DATE TYPE CONDITION / CODE ATTENDING STATUS SOURCE 09/18/2018 Unknown O34.211 - Farzana, Active [place] [facility] low transverse Hospital scar from Repository previous delivery / O34.211(ICD-10) 08/08/2018 Unknown M99.03 - Dossie, Kim Active [place] [facility] dysfunction of Repository lumbar region / M99.03(ICD-10) 08/08/2018 Unknown M99.04 - Dossie, Kim Active [place] [facility] dysfunction of Repository sacral region / M99.04(ICD-10) 08/08/2018 Unknown M99.05 - Dossie, Kim Active [place] [facility] dysfunction of Repository pelvic region / M99.05(ICD-10) 08/08/2018 Unknown M99.02 - Dossie, Kim Active [place] [facility] dysfunction of Repository thoracic region / M99.02(ICD-10) 08/08/2018 Unknown M99.01 - Dossie, Kim Active [place] [facility] somatic Hospital dysfunction of Repository cervical region / M99.01(ICD-10) 07/12/2018 Active 32 weeks NA Active [facility] gestation of [facility] / Repository Z3A.32(ICD-10) 06/16/2018 Active Encounter for NA Active [facility] supervision of [facility] normal first Repository , third trimester / Z34.03(ICD-10) 06/16/2018 Active 28 weeks NA Active [facility] gestation of [facility] / Repository Z3A.28(ICD-10) 02/23/2018 Active Unknown / FARZANA Active [facility] UNK(Unknown) FLACO Dean [facility] Repository 12/28/2017 Unknown E03.9 - Michael, Active [place] Hypothyroidism, [facility] unspecified / Hospital E03.9(ICD-10) Repository 12/26/2017 Unknown Z32.00 - Michael, Active [place] Encounter for [facility] test, Hospital result unknown / Repository Z32.00(ICD-10) PROCEDURES PROCEDURES No Procedure Records FoundRESULTS RESULTS PROGRESS Observed: 10/25/2018 Status: COMPLETED Source: [place] 1:50 PM [facility] REPOSITORY HNO ID: [id number] Author: Flaco Yanes Service: (none) Author Type: Physician Type: Progress Notes Filed: 10/25/2018 3:45 PM Note Text: VISIT Cristy Cordova is a 33 year old year old here for visit. Delivery Summary: c/s Recovery: Feeding: Breast feeding problems: None Menses since delivery:not resumed Menstrual pattern prior to : Regular periods [place] since delivery: Resumed Depression: denies symptoms of depression. See depression screening tab. Emotional support: yes Bowel symptoms: Negative for abdominal discomfort, blood in stools or black stools and change in bowel habits Bladder symptoms: No dysuria, gross hematuria, urinary frequency, urinary urgency, or incontinence Other issues: None PAST MEDICAL HISTORY Diagnosis Date - Anxiety - Cystic fibrosis screening 12/2016 screen neg for CF, SMA and fragile X - Infertility, female - Mental disorder - Migraines - Thyroid disease abnormal in past PAST SURGICAL HISTORY Procedure Laterality Date - DELIVERY ONLY 09/11/2018 C/S Low transverse - NONE FAMILY HISTORY Problem Relation Age of Onset - Diabetes Mother - Diabetes Father - Heart Father 2 NH - No Known Problems Brother - Arthritis Maternal Grandfather - other (liver issues ETOH) Maternal Grandmother - Heart Paternal Grandfather SOCIAL HISTORY Social History Marital status: Spouse name: Antonio Years of education: 19 Number of children: 0 Occupational History 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* [employer] Social History Main Topics Smoking status: Never Smoker Smokeless tobacco: Never Used Alcohol use: Yes Comment: Occasionally, not while Drug use: No Sexual activity: Yes Partners with: Male control/protection: None PHYSICAL EXAMINATION: Wt 154 lb (69.9kg) GENERAL: pleasant, female in no apparent distress HEENT: Normocephalic, atraumatic, mucus membranes moist and no lesions NECK: Supple, full range of motion, no adenopathy and thyroid normal DERMATOLOGY: Normal, without lesions, non-icteric and non-hirsute BREAST: soft, non-tender, symmetric, no dominant mass, normal nipple-areolar complex, no lymphadenopathy and no nipple discharge CHEST: Normal inspiratory effort ABDOMEN: soft, non-tender and no masses. No incisional redness, swelling, or drainage. PELVIC: external genitalia normal, normal Bartholin's glands, urethra, [place]'s glands, no vulvar lesions, no cervical lesions, good vaginal support, physiologic discharge present, normal appearing perineal body and perianal region BIMANUAL: uterus normal size, shape and consistency, no adnexal masses and non-tender NEURO: alert and oriented x3,exam grossly non-focal EXTREMITIES: normal ASSESSMENT AND PLAN: 33 year old status post with normal course. Contraception plan: Oral contraceptives Follow up: RTC for annual exams and PRN Flaco Yanes MD PROGRESS Observed: 09/22/2018 Status: COMPLETED Source: [place] 10:37 AM [facility] REPOSITORY HNO ID: [id number] Author: Flaco Yanes Service: (none) Author Type: Physician Type: Progress Notes Filed: 09/22/2018 10:52 AM Note Text: Average lochia, Pain well controlled, going well. No fevers or chills. No CLEMENTS. OBJECTIVE: Abdomen: soft, non-tender, no masses, no hepatosplenomegaly and no lymphadenopathy Incision: Healed PLAN: RTO for 6 week check d/c procardia follow BP I have reviewed and updated past medical and surgical history, medications and allergies. Flaco Yanes MD CNOV Observed: 09/22/2018 Status: COMPLETED Source: [place] 10:20 AM [facility] REPOSITORY Office Visit (WOOB) CRISTY CORDOVA ([id number]) 1985 F COW Date Time Provider Department 09/22/18 10:20 AM FLACO YANES WOOB During your visit today, we recorded the following information about you: Blood pressure Weight 122/80 72.1 kg Flaco Yanes MD 09/22/2018 10:52 AM Signed Average lochia, Pain well controlled, going well. No fevers or chills. No CLEMENTS. OBJECTIVE: Abdomen: soft, non-tender, no masses, no hepatosplenomegaly and no lymphadenopathy Incision: Healed PLAN: RTO for 6 week check d/c procardia follow BP I have reviewed and updated past medical and surgical history, medications and allergies. Flaco Yanes MD Referring Provider: SELF [200] Allergies As of Date: 09/22/2018 (No Known Allergies) Date Reviewed: 09/22/2018 Reviewed by: Chula Lindquist Ma - Fully Assessed Reason for Visit: Care [85] Cmt: incision check Primary Visit Diagnosis:Postop check [Z09] Prescriptions as of 09/22/2018 Sig: LEVOTHYROXINE 50 MCG TABLET Take 1 tablet by mouth daily * NIFEDIPINE ER 30 MG TABLET,EX* Take 30 mg by mouth once deon* ORAL Take by mouth once daily. Problem List As Of Date 09/22/2018 Noted Resolved History of thyroid disease [Z86.39] INVALID FOR* More... ASCUS favor benign [MWR9783] INVALID FOR* resulting from assisted reproductive *INVALID FOR* More... History of anxiety [Z86.59] INVALID FOR* More... Patient travels [Z78.9] INVALID FOR* More... Positive GBS test [B95.1] INVALID FOR* More... Encounter Status:Closed by FLACO YANES MD on 09/22/18 DISCHARGE INSTRUCTION Observed: 09/19/2018 Status: F Source: [place] 8:38 AM [facility] REPOSITORY [facility] Medical Records Department [address] [place] [id number] Instructions for Home/Discharge Instructions 09/19/18 0837 MR#: [id number] Acct: [id number] Name: CRISTY CORDOVA Rep #: [id number] : 1985 32 From: Flaco Yanes MD PCP: Uli Hightower MD Status: ADM IN Discharge Diet: No Restrictions Discharge Activity: Return to Normal Activity, May not drive while taking narcotic pain medications., May Shower May resume sexual activity in: 4-6 weeks Lifting Restrictions: 20 pounds Additional Activity Instructions:: Nothing in the vagina for 4-6 weeks. You may return to work/school in 6 weeks. Call your doctor if your incision/area has: Continuous Slow Oozing, Sudden Increased Bleeding, Increased Pain/ Swelling, Increased Redness, Foul Smelling Discharge Call your doctor if you observe: Fever of 101 or Higher, Using more than one pad per hour - for 2 hours, - - Severe headache, visual changes, Blood pressure > 165/105. Suture Line Care: Avoid Pulling/Pushing, Avoid Pinching/Bending Cleanse incision/area with: Keep Dressing Clean AND Dry Additional Instructions: If you experience any of the following, contact your healthcare provider. * Bleeding that soaks a pad every hour for 2 hours * Fever 100.4 or higher * Unrelieved incision or abdominal pain * Swelling, redness, discharge or bleeding from your incision or episiotomy site * Your incision begins to separate * Problems urinating (including inability to urinate or burning while urinating). * Visual changes * Severe headache * Flu-like symptoms * Pain or redness in one of both of your breasts * Pain, warmth, tenderness or swelling in your legs, especially the calf area * Frequent nausea and vomiting * Symptoms of depression or anxiety If you experience any of the following, call 911 or go to the nearest Emergency Room. * Chest pain * Problems breathing * Seizure activity * Partial or complete paralysis of a body part, slurred speech, weakness or drooping of the face, or a sudden inability to walk or hold your balance Allergies/Adverse Reactions: Allergies No Known Allergies Allergy (Verified 09/17/18 21:49) Medications to take at Discharge Levothyroxine Sodium [Synthroid] 50 mcg PO DAILY 07/02/18 Vits [Prenatabs FA ] 1 tablet PO DAILY 07/02/18 Oxycodone HCl/Acetaminophen [Percocet 5-325] 1 tablet PO Q6H PRN PRN 09/17/18 NIFEdipine [Procardia Xl] 30 mg PO DAILY #30 tablet 09/19/18 The following prescriptions were given: NIFEdipine [Procardia Xl] 30 mg PO DAILY #30 tablet Follow-Up: Call to make an appointment with your doctor for an incision check in 1-2 weeks. You will also need a 6 week post- follow up appointment. Test results from this visit will be discussed in further detail at your follow-up appointment, if applicable. Please Follow Up With: Flaco Yanes MD - Keep your appointment in 3 days . When: You will need a post check in 6 weeks. [phone] Primary Care Physician: Uli Hightower MD [Primary Care Provider] - 09/19/18 2798 <Electronically signed by Flaco Yanes MD> Date Flaco Yanes MD CC: Uli Hightower MD HISTORY AND PHYSICAL Observed: 09/18/2018 Status: F Source: [place] EXAM 1:21 PM [facility] REPOSITORY [facility] Medical Records Department [address] [place] [address] History and Physical 09/18/18 1311 MR#: [id number] Acct: [id number] Name: CRISTY CORDOVA Rep #: [id number] : 1985 32 From: Flaco Yanes MD PCP: Uli Hightower MD Status: ADM IN Y Location: [place] [address]-1 History of Present Illness Date of Admission: 09/17/18 Chief Complaint: headache The patient is a 32 year old female 2 para 1011 who presented postop day #6 status post primary low transverse section for arrest of descent at 10 cm with complaint of a headache 8 out of 10. The headache started on 1215 late at night and lasted all day on 1216. On the evening of 1216, she checked her blood pressure at home and found it remarkably elevated and was told to come to labor and delivery. The headache was frontal, she had no visual disturbances or epigastric pain. It was not relieved with Percocet or NSAIDs. Her postoperative abdominal pain has been steadily improving. She denies any nausea or vomiting. [] Past Medical History Medical History: Medical History (Last Reviewed 08/07/18 @ 08:10 by Marianne Calixto) Hyperthyroidism E05.90 and not yet delivered Z34.90 Allergies No Known Allergies Allergy (Verified 09/17/18 21:49) Home Medications: Ambulatory Orders Medication Instructions Recorded Levothyroxine Sodium [Synthroid] 50 mcg PO DAILY 07/02/18 Surgical History: - - on 09/11/2018 Psychiatric History: No pertinent psych hx Lives: With Family Smoking Status: Never smoker Drugs: None Review of Systems Constitutional: Denies: Anorexia, Chills, Fever Eyes: Denies: Blurred vision, Double vision HEENT: Reports: Head Aches. Denies: Sinus Drainage Cardiovascular: Denies: Chest Pain, Chest Pressure, Chest Tightness, Edema Respiratory: Denies: Cough, Shortness of Breath Gastrointestinal: Reports: Abdominal Pain - appropriate for postop, Constipation Genitourinary: Denies: Dysuria, Frequency, Hematuria Skin: Denies: Jaundice, Rash Neurological: Denies: Balance problems, Change in Speech, Slurred speech, Confusion, Focal weakness, Seizures VTE Information - Inpt Only VTE Present on Admission: No VTE Mechan Device Prophylaxis: SCD's Reason prophylaxis not ordered:: Procedure Not Indicated - Physical Exam General: Alert, Cooperative, No apparent distress HEENT: EOMI Oral: Moist Mucosa Neck: Supple Lungs: Clear to auscultation, Normal air movement, No wheeze Cardiovascular: Regular rate, Regular Rhythm Abdomen: Bowel Sounds Present, Soft, Non-Distended, Tender - appropriately Extremities: No edema, - - 2+ DTrs, one beat of clonus Skin: Incision - clean, dry and intact Neurological: Cranial nerves II-XII grossly intact, Deep Tendon Reflexes 2+/4 and Symmetrical, Neuro grossly intact Psych/Mental Status: Normal Affect, Appropriate Vital Signs Temp Pulse Resp BP Pulse Ox 97.4 F L 70 16 120/74 98 09/18/18 12:00 09/18/18 12:00 09/18/18 12:00 09/18/18 12:00 09/18/18 12:00 Oxygen Delivery Method Room Air Weight: 74.843 kg Body Mass Index (BMI) 27.4 Intake and Output for Last 24 Hours Intake Total 1550 / 1550 Output Total 900 / 900 Balance 650 / 650 Laboratory Tests Past 24 Hrs Assessment/Plan All Active Problems (Last Reviewed 08/07/18 @ 08:10 by Marianne Calixto) Segmental and somatic dysfunction of cervical region (Acute) Segmental and somatic dysfunction of thoracic region (Acute) Segmental and somatic dysfunction of pelvic region (Acute) Segmental and somatic dysfunction of sacral region (Acute) Segmental and somatic dysfunction of lumbar region (Acute) Postoperative day #7 status post primary section at 41+ gestational weeks now with preeclampsia. Blood pressures were in the severe range and with her severe headache, requiring IV Dilaudid to control it, decision was made to admit her for preeclampsia and magnesium prophylaxis. Patient's headache is significantly improved now. We will discontinue the IV Dilaudid and treat her with NSAIDs and oral meds as needed. We will continue the magnesium for 24 hours. If patient is stable at that time we will DC the magnesium. Patient has been started on oral nifedipine to control her blood pressure and her blood pressures are now well controlled. Nifedipine was chosen over labetalol because of the patient's low pulse rate. Patient is understanding and agreement w/ plan. Infant is here and well. Likely home tomorrow w/ close f/u and home BP monitoring. 09/18/18 1321 <Electronically signed by Flaco Yanes MD> Date Flaco Yanes MD Cosigner Signature: Date (if applicable) CC: Uli Hightower MD; Flaco Yanes MD Signed CBC-COMPLETE BLOOD CNT Collected: 09/17/2018 Status: F Source: [place] NO DIFF 9:35 PM [facility] REPOSITORY TYPE CODE TESTS RESULT OUT OF RANGE REFERENCE UNITS LAB L100.1000 4.4-11.0 K/mm3 Normal WBC 9.8 LAB L100.1200 4.2-5.4 M/mm3 Low RBC 3.90 LAB L100.1300 12.0-15.0 g/dl Normal HGB 12.0 LAB L100.1400 37-47 % Low HCT 34.7 LAB L100.1500 81-99 fL Normal MCV 89.0 LAB L100.1600 27.0-32.0 pg Normal MCH 30.8 LAB L100.1700 32-36 g/gl Normal MCHC 34.6 LAB L100.1810 11.6-14.6 % Normal RDW CV 12.2 LAB L100.1820 35.1-43.9 fl Normal RDW SD 38.8 LAB L100.1900 150-450 K/mm3 Normal PLT 360 LAB L100.2000 6.2-12.0 fl Normal MPV 9.3 Performed By: #### L100.0500 #### [facility] [address] [place], [place], [address] SERUM CREATININE AND Collected: 09/17/2018 Status: F Source: [place] GFR 9:35 PM [facility] REPOSITORY TYPE CODE TESTS RESULT OUT OF RANGE REFERENCE UNITS LAB L501.1100 0.55-1.02 mg/dL Normal 0.59 CREAT,SERUM Result Comment: The validity of the calculated GFR AND GFRAA in patients over 70 years has not been determined. Clinical correlation is essential. LAB L501.1110 >60 mL/min Normal EST GFR 124 Result Comment: Non- GFR Calc LAB L501.1115 >60 mL/min Normal EST GFR - AA 150 Result Comment: GFR Calc LAB L501.1255 ml/min Normal Estimated CRCL 123.18 Performed By: #### L501.1105, L501.1400, L501.4100, L501.4405, L300.3900, L300.4310 #### [facility] [address] [place], [address] URIC ACID Collected: 09/17/2018 Status: F Source: [place] 9:35 PM [facility] REPOSITORY TYPE CODE TESTS RESULT OUT OF RANGE REFERENCE UNITS LAB L501.1400 2.6-6.0 mg/dL Normal URIC 4.3 Result Comment: The drugs N-Acetylcysteine and Metamizole may falsely depress this assay. Performed By: #### L501.1105, L501.1400, L501.4100, L501.4405, L300.3900, L300.4310 #### [facility] [address] [place], [address] AST(SGOT) Collected: 09/17/2018 Status: F Source: [place] 9:35 PM [facility] REPOSITORY TYPE CODE TESTS RESULT OUT OF RANGE REFERENCE UNITS LAB L501.4100 15-37 U/L Normal AST 16 Performed By: #### L501.1105, L501.1400, L501.4100, L501.4405, L300.3900, L300.4310 #### [facility] [address] [place], [address] ALANINE AMINOTRANSFERAS Collected: 09/17/2018 Status: F Source: [place] (SGPT) 9:35 PM [facility] REPOSITORY TYPE CODE TESTS RESULT OUT OF RANGE REFERENCE UNITS LAB L501.4405 13-56 U/L Normal ALT 16 Performed By: #### L501.1105, L501.1400, L501.4100, L501.4405, L300.3900, L300.4310 #### [facility] [address] [facility] [place], [address] PROTHROMBIN TIME W/INR Collected: 09/17/2018 Status: F Source: [place] 9:35 PM [facility] REPOSITORY TYPE CODE TESTS RESULT OUT OF RANGE REFERENCE UNITS LAB L300.4150 11.7-14.9 SECONDS Normal PROTIME 12.7 LAB L300.4200 Normal INR 1.0 Performed By: #### L501.1105, L501.1400, L501.4100, L501.4405, L300.3900, L300.4310 #### [facility]. [place], [place], [address] PARTIAL THROMBOPLAST Collected: 09/17/2018 Status: F Source: [place] TIME 9:35 PM [facility] REPOSITORY TYPE CODE TESTS RESULT OUT OF RANGE REFERENCE UNITS LAB L300.4310 24.1-36.2 Seconds Normal PTT 33.9 Performed By: #### L501.1105, L501.1400, L501.4100, L501.4405, L300.3900, L300.4310 #### [facility] [place], [place], [address] DISCHARGE SUMMARY Observed: 09/15/2018 Status: F Source: [place] 8:36 AM [facility] REPOSITORY [facility] Medical Records Department [address] [place] [address] Discharge Summary 09/15/18 0833 MR#: [id number] Acct: [id number] Name: CRISTY CORDOVA Timbo Rep #: [id number] : 1985 32 From: Flaco Yanes MD PCP: Uli Hightower MD Status: DIS IN Y Location: WP DB546-4 Discharge Date and Diagnosis Date of Admission: 09/10/18 Date of Discharge: 09/14/18 Hospital Course and Treatment Operations: - - primary low transverse c/s via pfannensteil skin incision Procedures: None Summary of Care Provided: The patient is a 32 year YOF presented for induction of labor at 41 weeks. Cytotec/pitocin and baum and AROM for induction. Progressed to complete +1 station. Pushed for 3 hrs and complete for 4.5 hrs, no significant descent. Underwent primary LTCS w/ double layer uterine closure with 1 vicryl. She did well postop. By POD #3 she was ambulating, urniating and tolerating regular diet without difficulty. She was d/marcia home w/ routine instructions and prescriptions and to f/u in my office in 1-2 and 6 weeks. [] - Physical Exam Vital Signs Temp Pulse Resp BP Pulse Ox 98.8 F 72 16 120/70 95 09/14/18 10:55 09/14/18 10:55 09/14/18 10:55 09/14/18 10:55 09/14/18 02:32 Oxygen Delivery Method Room Air Weight: 82.7 kg Body Mass Index (BMI) 30.3 Discharge Diet: No Restrictions Discharge Activity: May not drive while taking narcotic pain medications., May Shower May resume sexual activity in: 4-6 weeks Weight Bearing Status: Weight bearing as tolerated Call your doctor if your incision/area has: Continuous Slow Oozing, Sudden Increased Bleeding, Increased Pain/ Swelling, Increased Redness, Foul Smelling Discharge, Swelling at the incision site Home Medications: Medications to take at Discharge Levothyroxine Sodium [Synthroid] 50 mcg PO DAILY 07/02/18 Vits [Prenatabs FA ] 1 tablet PO DAILY 07/02/18 Oxycodone HCl/Acetaminophen [Percocet 5/325] 1 tab PO Q6H PRN PRN 3 Days #10 tab 09/14/18 Following Prescrptions Were Given to Patient: Oxycodone HCl/Acetaminophen [Percocet 5/325] 1 tab PO Q6H PRN PRN 3 Days #10 tab PRN Reason: Pain Primary Care Physician: Uli Hightower MD [Primary Care Provider] - Medical Necessity - Tobacco Use Smoking Status: Never smoker Meaningful Use Info Meaningful Use Diagnoses (Choose all that apply): None applicable 09/15/18 0836 <Electronically signed by Flaco Yanes MD> Date Flaco Yanes MD Cosigner Signature (if applicable): Date CC: Uli Hightower MD; Flcao Yanes MD Signed PROGRESS Observed: 09/14/2018 Status: COMPLETED Source: [place] 3:15 PM [facility] [place] REPOSITORY O ID: [id number] Author: Ramirez Gordillo LPN Service: (none) Author Type: (none) Type: Progress Notes Filed: 09/14/2018 3:17 PM Note Text: Pt delivered via C/S at [facility] on 09/11/[address] Yanes and FRANK. See OB Outcome note. Ramirez Gordillo LPN' DISCHARGE INSTRUCTION Observed: 09/14/2018 Status: F Source: [place] 8:30 AM [facility] REPOSITORY [facility] Medical Records Department [address] [place] [address] Instructions for Home/Discharge Instructions 09/14/18 0830 MR#: [id number] Acct: [id number] Name: RAFIAHALIE JORDANALON Izquierdo Rep #: [id number] : 1985 32 From: Tabatha Irby PCP: Uli Hightower MD Status: ADM IN Discharge Diet: No Restrictions Discharge Activity: May not drive while taking narcotic pain medications., May Shower May resume sexual activity in: 4-6 weeks Weight Bearing Status: Weight bearing as tolerated Call your doctor if your incision/area has: Continuous Slow Oozing, Sudden Increased Bleeding, Increased Pain/ Swelling, Increased Redness, Foul Smelling Discharge, Swelling at the incision site Additional Instructions: If you experience any of the following, contact your healthcare provider. * Bleeding that soaks a pad every hour for 2 hours * Fever 100.4 or higher * Unrelieved incision or abdominal pain * Swelling, redness, discharge or bleeding from your incision or episiotomy site * Your incision begins to separate * Problems urinating (including inability to urinate or burning while urinating). * Visual changes * Severe headache * Flu-like symptoms * Pain or redness in one of both of your breasts * Pain, warmth, tenderness or swelling in your legs, especially the calf area * Frequent nausea and vomiting * Symptoms of depression or anxiety If you experience any of the following, call 911 or go to the nearest Emergency Room. * Chest pain * Problems breathing * Seizure activity * Partial or complete paralysis of a body part, slurred speech, weakness or drooping of the face, or a sudden inability to walk or hold your balance Allergies/Adverse Reactions: Allergies No Known Allergies Allergy (Verified 09/10/18 17:25) Medications to take at Discharge Levothyroxine Sodium [Synthroid] 50 mcg PO DAILY 07/02/18 Vits [Prenatabs FA ] 1 tablet PO DAILY 07/02/18 Oxycodone HCl/Acetaminophen [Percocet 5/325] 1 tab PO Q6H PRN PRN 3 Days #10 tab 09/14/18 The following prescriptions were given: Oxycodone HCl/Acetaminophen [Percocet 5/325] 1 tab PO Q6H PRN PRN 3 Days #10 tab PRN Reason: Pain Follow-Up: Call to make an appointment with your doctor for an incision check in 1-2 weeks. You will also need a 6 week post- follow up appointment. Test results from this visit will be discussed in further detail at your follow-up appointment, if applicable. Primary Care Physician: Uli Hightower MD [Primary Care Provider] - 09/14/18 0830 <Electronically signed by Tabatha Irby > Date Tabatha Irby CC: Uli Hightower MD HOSP Observed: 09/14/2018 Status: COMPLETED Source: [place] 12:00 AM [facility] REPOSITORY Patient Update (WOOB) CRISTY CORDOVA ([id number]) 1985 F COW Date Time Provider Department 09/14/18 FLACO YANES During your visit today, we recorded the following information about you: Ramirez Gordillo LPN 09/14/2018 3:17 PM Signed Pt delivered via C/S at [facility] on 09/11/[address] Yanes and FRANK. See OB Outcome note. Ramirez Dru CISNEROS' Allergies As of Date: 09/14/2018 (No Known Allergies) Date Reviewed: 09/06/2018 Reviewed by: Flaco Yanes - Fully Assessed Prescriptions as of 09/14/2018 Sig: LEVOTHYROXINE 50 MCG TABLET Take 1 tablet by mouth daily * ORAL Take by mouth once daily. Problem List As Of Date 09/14/2018 Noted Resolved History of thyroid disease [Z86.39] INVALID FOR* More... ASCUS favor benign [UMN1072] INVALID FOR* resulting from assisted reproductive *INVALID FOR* More... History of anxiety [Z86.59] INVALID FOR* More... Patient travels [Z78.9] INVALID FOR* More... Positive GBS test [B95.1] INVALID FOR* More... Encounter Status:Closed by RAMIREZ GORDILLO LPN on 09/14/18 PLACENTA Observed: 09/13/2018 Status: F Source: [place] 12:00 AM [facility] REPOSITORY Patient: CRISTY CORDOVA : 1985 (32/F) Acct Num: [id number] Phys: Farzana BACA,Flaco Unit Num: [id number] Loc: WP JE520-6 Specimen: [id number] Received: 09/13/181599 Spec Type: PLACENTA TISSUES 1 TISSUES: Placenta, NOS GROSS DESCRIPTION SPECIMEN: PLACENTA / CLINICAL INFORMATION: A. Weight: 3.535 kg B. Gestational Age: 41 weeks C. Sex: Male PLACENTAL WEIGHT (POST FIXATION): 526 gm PLACENTAL DIMENSIONS: 19 x 20 x 3 cm PLACENTAL SHAPE: Usual ovoid PLACENTAL WEIGHT FOR GESTATIONAL AGE: Within 10-99th percentile MEMBRANES - Present A. Insertion: Marginal B. Site of rupture from edge: 3 cm from edge of placental disc C. Color of membrane: Mobley-mucoidy D. Abnormalities: None UMBILICAL CORD - Present A. Color: Mobley-rascon B. Insertion: Central C. Length: 29 cm D. Diameter: 1 cm E. Number of vessels: Three F. Abnormalities: None PLACENTAL DISC - Present A. Color of surface: Mobley-rascon B. surface abnormalities: None C. Maternal cotyledons: Intact with minimal tears D. Attached retro placental clot: No clot E. Cut surface: Dark red and spongy F. Lesions: Sections reveal two mobley, indurated lesions each measuring 1 cm in greatest dimension. G. Separate clot: Absent SECTIONS SUBMITTED: 1. Membrane roll 2. Cord, maternal end 3. Cord, end 4. Placental disc, and maternal surfaces, lesion 5. Placental disc, and maternal surfaces, lesion 6. Placental disc, and maternal surfaces SJ:gracia 09/14/18 TC:2 CPT: 62073 HEADER OPERATION: Primary section PRE-OP DIAGNOSIS: Meconium TISSUE SUBMITTED: Placenta MICROSCOPIC DESCRIPTION Slides are reviewed. MICROSCOPIC DIAGNOSIS Placenta: Placental disc - third trimester placenta (526 gm). - Focal areas of intraparenchymal hemorrhage (1 cm in greatest dimension). - Focal acute vasculitis of subamniotic blood vessels. Membranes - mild acute chorioamnionitis. - A few pigment laden macrophages consistent with meconium staining. Umbilical cord - three blood vessels and no pathologic diagnosis. DORIAN:gracia 09/15/18 Signed Tim Goldsmith 09/15/18 <signature on file> Performed By: #### PPLAC #### [facility] [address] [place], [address] CBC-COMPLETE BLOOD CNT Collected: 09/12/2018 Status: F Source: [place] NO DIFF 6:20 AM [facility] REPOSITORY Order Comment: Comments: Day #1 Reason for Laboratory Test TYPE CODE TESTS RESULT OUT OF RANGE REFERENCE UNITS LAB L100.1000 4.4-11.0 K/mm3 High WBC 17.6 LAB L100.1200 4.2-5.4 M/mm3 Low RBC 3.49 LAB L100.1300 12.0-15.0 g/dl Low HGB 10.8 LAB L100.1400 37-47 % Low HCT 31.8 LAB L100.1500 81-99 fL Normal MCV 91.1 LAB L100.1600 27.0-32.0 pg Normal MCH 30.9 LAB L100.1700 32-36 g/gl Normal MCHC 34.0 LAB L100.1810 11.6-14.6 % Normal RDW CV 13.4 LAB L100.1820 35.1-43.9 fl Normal RDW SD 43.1 LAB L100.1900 150-450 K/mm3 Normal PLT 162 LAB L100.2000 6.2-12.0 fl Normal MPV 10.8 Performed By: #### L100.0500 #### [facility] [address] [facility] [place], [address] PATHOLOGY SPECIMEN OB Collected: 09/12/2018 Status: F Source: [place] 12:03 AM [facility] REPOSITORY Order Comment: Reason for Laboratory Test Placenta for Lab studies Send Specimen For (Specify): Studies @ [facility] Lab:Routine Time of Procedure: 2329 Date of Procedure: 09/11/18 Reason specimen being sent to pathology (Hx/complications): meconium Type of specimen: Placenta Type of procedure performed: Primary Section TYPE CODE TESTS RESULT OUT OF RANGE REFERENCE UNITS LAB L350.1800 SEE Normal PATH. PATHOLOGY Spec. OB REPORT Result Comment: Specimen submitted to Anatomical Pathology Department for testing. Performed By: #### L350.1800 #### [facility] [address] [facility] [address] OPERATIVE REPORT Observed: 09/11/2018 Status: F Source: [place] 11:54 PM [facility] REPOSITORY [facility] Medical Records Department [address] [facility] [address] Operative Report 09/11/18 2348 MR#: [id number] Acct: [id number] Name: CRISTY CORDOVA Rep #: [id number] : 1985 32 From: Flaco Yanes MD PCP: Uli Hightower MD Status: ADM IN Y Location: [id number] Delivery Classification: SASHA Final SELIN: 09/03/18 Final SELIN Source: US <20 weeks Gestational age: 41 Weeks and 1 Days Indications for : - - arrest of descent Description of Procedure: Preop diagnosis: 41-week , meconium stained fluid, arrest of descent Operative diagnosis: Same Surgeon: Flaco Yanes MD Bakery Supervisor:Venecia MARIE Procedure: Primary low transverse section Via Pfannenstiel skin incision The patient was complete and pushed for approximately 45 minutes. There is no significant descent. She was then allowed to labor down. She began to push again. She pushed for a total of over 3 hours. At the end of that time, she made no significant descent. The station was still plus 1 out of 5 station. Her efforts were adequate. The head was asynclitic. The patient had undergone multiple position changes and pushed in multiple different positions. The fluid had progressed to meconium-stained. At this point discussed with the patient and her risk benefits and alternatives to section. They desire to proceed. The patient was taken to the operating room. She was prepped and draped in the dorsal supine position with a leftward tilt. A Pfannenstiel skin incision was made approximately 2 cm above the symphysis pubis and carried through to underlying layer fascia with the scalpel. The fascia was incised incised in the midline and extended laterally with the Ferguson scissors. The fascia was dissected off the rectus muscles with blunt and sharp dissection. The rectus muscles were in the midline and the peritoneum was entered bluntly. The peritoneal incision was stretched and the bladder blade was placed. The uterine incision was made in a low transverse fashion with the scalpel and extended superiorly and inferiorly with blunt dissection. Moderate meconium-stained fluid returned. With some difficulty I got my head under the vertex. I then brought it up steadily until the suction broke. The infant's head was brought to the incision in the flexed position and delivered without difficulty. The remainder of the was delivered with gentle traction and fundal pressure in the standard fashion. The mouth and nares were bulb suctioned. The cord was clamped and cut as the was stimulated. Cord clamping was only delayed about 20 seconds, at that point the was still somewhat holding his breath and the decision was made to cut the cord and handed him off for possible resuscitation. The was handed off to the waiting nursing staff. As he arrived at the warmer, he began a vigorous cry. The placenta was delivered with fundal massage and gentle traction in the standard fashion. The uterus was exteriorized and cleared of all clots and debris. There was a cervical laceration extending near the midline of the cervix inferiorly approximate 3 cm long. Care was taken to ensure the bladder was dissected off adequately around this. This laceration was then oversewn with #1 Vicryl suture and then a second imbricating layer. The uterine incision was then closed with #1 Vicryl in a running locked fashion. A second layer of the same suture was used in an imbricating fashion. The incision was examined and was found to be hemostatic. The uterus was placed back into the peritoneal cavity and hemostasis was again confirmed. The rectus muscles were examined and any bleeding was Bovie cauterized. The parietal peritoneum and rectus muscles were closed en bloc with an 0 Vicryl running suture. The surgical teams outer gloves were then changed. The rectus fascia was examined and any bleeding was Bovie cauterized and the rectus fascia was closed with 1 Vicryl suture in a running standard fashion. The subcutaneous tissue was examining and any bleeding was Bovie cauterized. The subcutaneous tissue was reapproximated with 3-0 Vicryl suture. The skin was closed in a subcuticular fashion with Monocryl suture. Performed the entire procedure with assistance. All sponge, lap, and needle counts were correct. The patient was taken to her room for recovery in a stable condition. Amniotic Membrane Rupture Type: Artificial Amniotic Fluid Description: Lightly stained meconium - originally clear Placenta Disposition: Sent to Pathology Drain: Baum to straight drain Fluids Replaced: 1000cc Cord Entanglement: Around neck x 1, loose Nuchal Cord Compression: Without compression Cord Vessel Description: 3 Vessels Esitmated Blood Loss (ml): 800 Gender: Male Delayed cord clamping: No Complications: None - Admit VTE Documentation VTE Present on Admission: No VTE Mechan Device Prophylaxis: SCD's VTE Pharm Prophylaxis ordered?: No Reason prophylaxis not ordered:: Procedure Not Indicated 09/11/18 1125 <Electronically signed by Flaco Yanes MD> Date Flaco Yanes MD CC: Uli Hightower MD; Flaco Yanes MD Signed HISTORY AND PHYSICAL Observed: 09/10/2018 Status: F Source: [place] EXAM 9:25 PM [facility] REPOSITORY [facility] Medical Records Department [address] [place] [address] History and Physical 09/10/18 2100 MR#: [id number] Acct: [id number] Name: CRISTY CORDOVA Rep #: [id number] : 1985 32 From: Flaco Yanes MD PCP: Uli Hightower MD Status: ADM IN Y Location: [place] [address] History Date of Admission: 09/10/18 Final SEILN: 09/03/18 Final SELIN Source: US <20 weeks Gestational age: 41 Weeks and 0 Days History of this : This is a 32 year-old, G 2P1 @ 41 weeks for induction of labor. No ctxs. Good FM. No VB/LOF. result of in vitro h/o one very early SAB h/o mild hypothyroidism Medical History: Medical History (Last Reviewed 08/07/18 @ 08:10 by Marianne Calixto) Hyperthyroidism E05.90 and not yet delivered Z34.90 Allergies No Known Allergies Allergy (Verified 09/10/18 17:25) Home Medications: Home Medications Levothyroxine Sodium [Synthroid] 50 mcg PO DAILY 07/02/18 Vits [Prenatabs FA] 1 tablet PO DAILY 07/02/18 Smoking Status: Never smoker Alcohol: None Number of Fetus(es): 1 Heart Tracing: normal baseline, moderate variability, + accels. TOCO Analysis: no regular ctxs History Past Pregnancies: Past Pregnancies Delivery Name GA/Weeks Outcome Route WeiInfant GeLabor LenAnesthesiDelivery Provider FOB Date ght nder gth a Location Expected Delivery Method: Spontaneous Vaginal Describe any other labor AND delivery plans:: epidural Review of Systems Constitutional: Denies: Anorexia, Chills HEENT: Denies: Difficulty Hearing Cardiovascular: Denies: Chest Pain Respiratory: Denies: Cough Skin: Denies: Rash Physical Exam General: Alert, Cooperative, No apparent distress Cardiovascular: Regular rate, Regular Rhythm Lungs: Clear to auscultation Abdomen: Soft, Non-Distended, Distended Extremities:: No edema BRIM CUTTER: Normal external genitalia Estimated gestational size: Appropriate for gestational size Presentation: Cephalic Cervix Dilation (cm): 1 Station: -1 Effacement (%): 70 - soft, posterior Assessment/Plan All Active Problems (Last Reviewed 08/07/18 @ 08:10 by Marianne Calixto) Segmental and somatic dysfunction of cervical region (Acute) Segmental and somatic dysfunction of thoracic region (Acute) Segmental and somatic dysfunction of pelvic region (Acute) Segmental and somatic dysfunction of sacral region (Acute) Segmental and somatic dysfunction of lumbar region (Acute) This is a 32 year-old, @ 41 weeks for induction of labor had one dose of cytotec for cervical ripening, not feeling many contractions yet. Baum placed over stylette in usual sterile fashion and inflated to 30 cc. Placement over internal os confirmed. Patient and fetus tolerated well EFW < 4500 gm, pelvis clinically adequate to expect vaginal delivery Epidural, NO or nubain prn 09/10/18 7911 <Electronically signed by Flaco Yanes MD> Date Flaco Yanes MD Cosigner Signature: Date (if applicable) CC: Uli Hightower MD; Flaco Yanes MD Signed CBC-COMPLETE BLOOD CNT Collected: 09/10/2018 Status: F Source: [place] NO DIFF 6:05 PM [facility] REPOSITORY TYPE CODE TESTS RESULT OUT OF RANGE REFERENCE UNITS LAB L100.1000 4.4-11.0 K/mm3 High WBC 11.7 LAB L100.1200 4.2-5.4 M/mm3 Normal RBC 4.30 LAB L100.1300 12.0-15.0 g/dl Normal HGB 13.3 LAB L100.1400 37-47 % Normal HCT 38.3 LAB L100.1500 81-99 fL Normal MCV 89.1 LAB L100.1600 27.0-32.0 pg Normal MCH 30.9 LAB L100.1700 32-36 g/gl Normal MCHC 34.7 LAB L100.1810 11.6-14.6 % Normal RDW CV 13.3 LAB L100.1820 35.1-43.9 fl Normal RDW SD 43.0 LAB L100.1900 150-450 K/mm3 Normal PLT 209 LAB L100.2000 6.2-12.0 fl Normal MPV 10.5 Performed By: #### L100.0500 #### [facility] [address] [place], [address] TYPE AND SCREEN Collected: 09/10/2018 Status: F Source: [place] 6:05 PM [facility] REPOSITORY Order Comment: Reason for Type AND Screen/Red Cells: ROUTINE TYPE CODE TESTS RESULT OUT OF RANGE REFERENCE UNITS LAB B10.0800 AB Normal BLOOD TYPE GEL POSITIVE LAB B100.4000 Normal Antibody NEGATIVE Screen Performed By: #### B101.7450 #### [facility] [address] [place], [place], [address] PROGRESS Observed: 09/08/2018 Status: COMPLETED Source: [place] 4:47 PM [facility] REPOSITORY HNO ID: [id number] Author: Flaco Yanes Service: (none) Author Type: Physician Type: Progress Notes Filed: 09/08/2018 4:49 PM Note Text: NST SUMMARY PROVIDER ASSESSMENT AND INTERPRETATION Cristy Cordova is a 32 year old female, , who is at 40w5d with an SELIN of 09/03/2018, by Embryo Transfer dating method. Indications for NST: Other: 40 weeks, infertility Baseline: 115 Variability: Moderate Accelerations: Present 15 X 15 Decelerations: None Contractions: TOCO: Irregular Interpretation: Category I and Reactive SIGNATURE: Flaco Yanes MD PROGRESS Observed: 08/15/2018 Status: COMPLETED Source: [place] 9:16 AM [facility] REPOSITORY HNO ID: [id number] Author: Janie Drake RN Service: (none) Author Type: (none) Type: Progress Notes Filed: 08/15/2018 9:17 AM Note Text: CLASS Date Attended: August 14, 2018 Introduction Credentials Expectations of a 3-hour class 1. Review of handouts 2. Baby care class Stages of labor video Stages to call the doctor 1. SROM 2. Cervical changes 3. Bleeding vs. bloody show 4. Decreased movement Hospital Procedures 1. Internal/external monitors 2. IV therapy 3. AROM 4. Pitocin Pain Management 1. Epidural 2. Other pain medications 3. No medicinal comfort measures 4. Breathing/pushing Delivery methods 1. 2. Forceps 3. Vacuum extractor Physician presentations 1. OB-road manager 2. Car Starter 1. Mom's first hour 2. baby's first hour 3. baby's discharge protocol Completed childbirth education class. Janie Drake RN CNCNPATED Observed: 08/14/2018 Status: COMPLETED Source: [place] 12:00 AM [facility] REPOSITORY Education (WOOB) CRISTY CORDOVA ([id number]) 1985 F COW Date Time Provider Department 08/14/18 [facility] Reason for Visit: Class [4072] Progress Notes: Janie Drake RN 08/15/2018 9:17 AM Signed CLASS Date Attended: August 14, 2018 Introduction Credentials Expectations of a 3-hour class 1. Review of handouts 2. Baby care class Stages of labor video Stages to call the doctor 1. SROM 2. Cervical changes 3. Bleeding vs. bloody show 4. Decreased movement Hospital Procedures 1. Internal/external monitors 2. IV therapy 3. AROM 4. Pitocin Pain Management 1. Epidural 2. Other pain medications 3. No medicinal comfort measures 4. Breathing/pushing Delivery methods 1. 2. Forceps 3. Vacuum extractor Physician presentations 1. OB-road manager 2. Car Starter 1. Mom's first hour 2. baby's first hour 3. baby's discharge protocol Completed childbirth education class. Janie Drake RN During your visit today, we recorded the following information about you: Allergies As of Date: 08/14/2018 (No Known Allergies) Date Reviewed: 08/09/2018 Reviewed by: Flaco Yanes - Fully Assessed Prescriptions as of 08/14/2018 Sig: LEVOTHYROXINE 50 MCG TABLET Take 1 tablet by mouth daily * ORAL Take by mouth once daily. Encounter Status:Closed by JANIE DRAKE RN on 08/15/18 GROUP B STREP PCR Collected: 08/09/2018 Status: F Source: [place] 8:50 AM [facility] REPOSITORY TYPE CODE TESTS RESULT OUT OF RANGE REFERENCE UNITS LAB GBPCRT Positive for Abnormal Group B Alert GROUP B Streptococcus by STREP PCR PCR. If susceptibility testing is needed and was not requested with initial test order, call lab ([phone]) within 5 days to initiate workup. Performed By: #### GBPCR #### [facility] [facility] [address], [place] [address] PROGRESS Observed: 08/09/2018 Status: COMPLETED Source: [place] 8:41 AM [facility] REPOSITORY HNO ID: [id number] Author: Chula Lindquist Ma Service: (none) Author Type: (none) Type: Progress Notes Filed: 08/09/2018 1:36 PM Note Text: Patient identified by name and date of . Cristy Cordova presents today for a vaccination of Tdap. Patient denies an allergy to latex: yes Patient denies a severe (life-threatening) allergy to a previous dose of Tdap, DTP, DTaP, DT or Td vaccine. Yes Patient denies history of epilepsy or neurological problems: Yes Patient is afebrile and denies being moderately or severely ill: Yes Patient denies history of Guillain-Mendon Syndrome (a severe paralytic illness): Yes Tdap Adacel injection was given without incident. See immunizations for details of immunizations administered today. VIS sheet provided: Yes Provider Dr Yanes was present in office at time of injection. Chula Lindquist Ma CHIROPRACTIC REPORT Observed: 08/07/2018 Status: F Source: [place] 8:33 AM [facility] [place] [address] OFFICE VISIT Date of Service: 08/07/18 MR#: [id number] Acct: [id number] Name: CRISTY CORDOVA Rep #: [id number] : 1985 Provider: Kim Carter D.C. Age/Sex: 32/F Location: [facility] Status: Signed Intake Vital Signs08/07/18 Height 5 ft 5 in 08/07/18 Weight: 177 lb 08/07/18 Body Mass Index (BMI) 29.4 Intake Visit Reasons: back pain Chief Complaint: mid and low back pain Is patient in pain?: Yes Allergies No Known Allergies Allergy (Unverified 05/02/18 09:21) Medications Levothyroxine Sodium [Synthroid] 50 mcg PO DAILY 07/02/18 [History Confirmed 07/02/18] Vits [Prenatabs FA] 1 tab PO DAILY 07/02/18 [History Confirmed 07/02/18] Patient : Yes PFSH Medical History Hyperthyroidism (Acute) and not yet delivered (Acute) Family History Other CVA (cerebral vascular accident) Heart disease High cholesterol Hypertension Social History Smoking Status: Never smoker alcohol intake: never substance use type: does not use what type of physical activity do you participate in: other details: crossfit frequency: 3-4 times per week HPI back pain : Chief Complaint: neck and low back pain Visit Number: 11 Details: CRISTY CORDOVA is a 32 year old F who is 36.5 weeks and complains of neck and back pain. She states that over the past week she has been experiencing body pain. Today the patient complains of neck, low back, and round ligament pain, rating it a 4/10. Walking, bending, sitting, and standing are causing increased low back pain that is constant, laying her side and twisting cause a sharp pain in the round ligaments. Cristy also complains of neck pain, described as a tight pain banding across the neck, although she denies any numbness, tingling, or radiculopathy. Onset: 07/31/18 Location: neck and back Duration: constant Aggravating or associated factors: bending, lifting, twisting, sleeping Relieving factors: chiro Pain Quality: aching, dull, cramping, sharp Exam Musc General: Yes normal posture ( ), normal gait, joint tenderness (T10,T11,L3-L5, R SI) and decreased ROM Cervical Spine: normal cervical lordosis, cervical ROM normal, cervical muscular tenderness bilateral lower: paracervical muscle and trapezius, cervical spasm bilateral lower: trapezius and paracervical muscles Thoracic/Lumbar Spine: thoracic and lumbar spine normal to inspection, paraspinal tenderness on the right greater than left (L3-L5) and bilaterally in the upper thoracic and in the mid thoracic, thoraco-lumbar ROM limited, pain with thoraco-lumbar ROM, Lasegue's sign negative, thoraco-lumbar spasm on the right greater than left (QL) Sacroiliac joints: on the right Sacrum: tenderness on the left Ortho Test CERVICAL Compression pain: Negative Distraction pain: relief Jean's pain: Negative Valsalvas: Negative Shoulder depression pain: Right (+bilaterally) THORACIC LUMBAR Office Procedures Chiropractic Treatments Procedures Manipulation: 3-4 regions (C4,C6, T5,L sacrum, RIL) Assessment AND Plan 1. Segmental and somatic dysfunction of thoracic region M99.02 Orders Orders: 2. Segmental and somatic dysfunction of pelvic region M99.05 Orders Orders: 3. Segmental and somatic dysfunction of sacral region M99.04 Orders Orders: 4. Segmental and somatic dysfunction of cervical region M99.01 Plan Detail Other Orders Orders: Goals Decrease pain and inflammation Improve pelvic leveling Follow Up 1 x week Coding Level of Care Code No Charge Diagnoses Segmental and somatic dysfunction of thoracic region M99.02 Segmental and somatic dysfunction of pelvic region M99.05 Segmental and somatic dysfunction of sacral region M99.04 Segmental and somatic dysfunction of cervical region M99.01 Additional Codes Procedures - Manipulation: 3-4 regions (84033) 08/07/18 0833 <Electronically signed by Kim Carter D.C.> Date Kim Carter D.C. Cosign Signature: Date (if applicable) CC: CHIROPRACTIC REPORT Observed: 07/31/2018 Status: F Source: [place] 8:13 AM [facility] [address] [place] [address] OFFICE VISIT Date of Service: 07/24/18 MR#: [id number] Acct: [id number] Name: CRISTY CORDOVA Rep #: [id number] : 1985 Provider: Kim Carter D.C. Age/Sex: 32/F Location: [facility] Status: Signed Intake Vital Signs07/24/18 Height 5 ft 5 in 07/24/18 Weight: 171 lb 07/24/18 Body Mass Index (BMI) 28.4 Intake Visit Reasons: back pain Is patient in pain?: Yes Allergies No Known Allergies Allergy (Unverified 05/02/18 09:21) Medications Levothyroxine Sodium [Synthroid] 50 mcg PO DAILY 07/02/18 [History Confirmed 07/02/18] Vits [Prenatabs FA] 1 tab PO DAILY 07/02/18 [History Confirmed 07/02/18] [facility] : Yes [facility] Medical History Hyperthyroidism (Acute) and not yet delivered (Acute) Family History Other CVA (cerebral vascular accident) Heart disease High cholesterol Hypertension Social History Smoking Status: Never smoker alcohol intake: never substance use type: does not use what type of physical activity do you participate in: other details: crossfit frequency: 3-4 times per week HPI back pain : Chief Complaint: Low back pain Visit Number: 10 Details: CRISTY CORDOVA is a 32 year old F who is 33 weeks . She states that she is still experiencing pain in the low back, although it is more of a dull ache, she denies any radiculopathy. Bending, twisting, and prolonged standing seem to cause the pain to increase, she is also complaining of round ligament pain. Today Cristy rates her pain a 3/10 and describes it as a dull ache that bands across the low back. Cristy denies any numbness, tingling, or radiculopathy. Location: low back and round ligament Duration: intermittent Aggravating or associated factors: bending. lifting, twisting, and prolonged standing Relieving factors: chiro Pain Quality: aching, dull, cramping Exam Musc General: Yes normal posture ( ), normal gait, joint tenderness (T10,T11,L3-L5, R SI) and decreased ROM Thoracic/Lumbar Spine: thoracic and lumbar spine normal to inspection, paraspinal tenderness bilaterally in the lower lumbar, in the mid lumbar and in the upper thoracic, thoraco-lumbar ROM limited, pain with thoraco-lumbar ROM, Lasegue's sign negative, thoraco-lumbar spasm bilaterally in the lower lumbar and in the mid lumbar Sacroiliac joints: on the right Sacrum: tenderness Office Procedures Chiropractic Treatments Procedures Manipulation: 3-4 regions (T4,T11,L3, L sacrum, RIL) Assessment AND Plan 1. Segmental and somatic dysfunction of thoracic region M99.02 Orders Orders: 2. Segmental and somatic dysfunction of pelvic region M99.05 Orders Orders: 3. Segmental and somatic dysfunction of sacral region M99.04 Orders Orders: 4. Segmental and somatic dysfunction of lumbar region M99.03 Orders Orders: Plan Detail Additional Comments Continue with treatment. Goals Decrease pain and inflammation Improve pelvic leveling Coding Level of Care Code No Charge Diagnoses Segmental and somatic dysfunction of thoracic region M99.02 Segmental and somatic dysfunction of pelvic region M99.05 Segmental and somatic dysfunction of sacral region M99.04 Segmental and somatic dysfunction of lumbar region M99.03 Additional Codes Procedures - Manipulation: 3-4 regions (09433) 07/31/18 0813 <Electronically signed by Kim Carter D.C.> Date Kim Carter D.C. Cosigner Signature: Date (if applicable) CC: TSH Collected: 07/12/2018 Status: F Source: [place] 9:15 AM [facility] REPOSITORY TYPE CODE TESTS RESULT OUT OF RANGE REFERENCE UNITS LAB TSH 0.400-5.500 uU/mL TSH 1.290 Result Comment: If the patient is , TSH reference range varies by gestational period: First Trimester 0.100-2.500 uU/mL Second Trimester 0.200-3.000 uU/mL Third Trimester 0.300-3.000 uU/mL References: 1. Burns L, Ranjit M, Jv DO, et al. Management of Thyroid Dysfunction during and : An Endocrine Society Clinical Practice Guideline. J Clin Endocrinol Metab, 2012:97:9308-8294. 2. Jonathan GALAN. Overview of thyroid disease in . UpToDate. 2016. Accessed on March 19, 2016. Performed By: #### TSH #### [facility] [address] [address] CHIROPRACTIC REPORT Observed: 07/11/2018 Status: F Source: [place] 1:56 PM [facility] REPOSITORY [facility] [address] [place] [address] OFFICE VISIT Date of Service: 07/11/18 MR#: [id number] Acct: [id number] Name: CRISTY CORDOVA Rep #: [id number] : 1985 Provider: Kim Carter D.C. Age/Sex: 32/F Location: [facility] Status: Signed Intake Vital Signs07/11/18 Height 5 ft 5 in 07/11/18 Weight: 169 lb 07/11/18 Body Mass Index (BMI) 28.1 Intake Visit Reasons: back pain Chief Complaint: mid and low back pain Is patient in pain?: Yes Allergies No Known Allergies Allergy (Unverified 05/02/18 09:21) Medications Levothyroxine Sodium [Synthroid] 50 mcg PO DAILY 07/02/18 [History Confirmed 07/02/18] Vits [Prenatabs FA] 1 tab PO DAILY 07/02/18 [History Confirmed 07/02/18] [facility] Medical History Hyperthyroidism (Acute) and not yet delivered (Acute) Family History Other CVA (cerebral vascular accident) Heart disease High cholesterol Hypertension Social History Smoking Status: Never smoker alcohol intake: never substance use type: does not use what type of physical activity do you participate in: other details: crossfit frequency: 3-4 times per week HPI back pain: Chief Complaint: mid and low back pain Visit Number: 9 Details: CRISTY CORDOVA is a 32 year old F who is currently 32 weeks . She states that over the past two weeks she has noticed a tight ache in the mid back, with pain increasing after bending, lifting and sitting. Today Cristy rates her pain a 3/10 and describes it as a dull ache that bands across the low back, at times she is still experiencing occasional sciatic pain into the L leg. Although she denies any numbness, tingling, or radiculopathy. Location: mid and low back Duration: intermittent Aggravating or associated factors: prolonged sitting and bending Relieving factors: chiro Pain Quality: aching, dull, cramping Exam Musc General: Yes normal posture ( ), normal gait, joint tenderness (T4,T5,L4, L5, L/R SI) and decreased ROM Thoracic/Lumbar Spine: thoracic and lumbar spine normal to inspection, paraspinal tenderness bilaterally in the lower lumbar and in the mid thoracic, thoraco- lumbar ROM limited, pain with thoraco-lumbar ROM with forward flexion, Lasegue's sign negative, thoraco-lumbar spasm bilaterally in the lower lumbar and in the mid thoracic Sacroiliac joints: on the right Sacrum: tenderness Office Procedures Chiropractic Treatments Procedures Manipulation: 3-4 regions (T4,L4, L sacrum, RIL) Assessment AND Plan 1. Segmental and somatic dysfunction of pelvic region M99.05 Orders Orders: 2. Segmental and somatic dysfunction of sacral region M99.04 Orders Orders: 3. Segmental and somatic dysfunction of lumbar region M99.03 Orders Orders: 4. Segmental and somatic dysfunction of thoracic region M99.02 Plan Detail Goals Decrease pain and inflammation Improve pelvic leveling Follow Up 2 Weeks Coding Level of Care Code No Charge Diagnoses Segmental and somatic dysfunction of pelvic region M99.05 Segmental and somatic dysfunction of sacral region M99.04 Segmental and somatic dysfunction of lumbar region M99.03 Segmental and somatic dysfunction of thoracic region M99.02 Additional Codes Procedures - Manipulation: 3-4 regions ([id number]) 07/11/18 1356 <Electronically signed by Kim Carter D.C.> Date Kim Carter D.C. Cosigner Signature: Date (if applicable) CC: URINALYSIS, COMPLETE Collected: 07/02/2018 Status: F Source: [place] 4:20 PM [facility] REPOSITORY Order Comment: Has pt arrived? Y How was Urine Obtained? CLEAN CATCH TYPE CODE TESTS RESULT OUT OF RANGE REFERENCE UNITS LAB L400.3000 Yellow COLOR Normal Yellow LAB L400.3050 Clear Normal CLARITY Clear LAB L400.3200 Normal mg/dl Normal GLUCOSE, UR Normal LAB L400.3300 Negative mg/dL Normal BILIRUBIN URINE Negative LAB L400.3400 Negative mg/dl Normal KETONE UR Negative LAB L400.3465 1.002-1.030 Normal SP.GR. DIPSTX 1.005 LAB L400.3550 5.0 - 8.0 pH UR Normal 7.0 LAB L400.3600 Negative mg/dl PROT Normal DIPSTX Negative LAB L400.3700 Normal mg/dl Normal UROBILI Normal LAB L400.3750 Negative Normal NITRITE UR Negative LAB L400.3780 Negative /ul Normal OCCULT BLOOD-UR Negative LAB L400.3800 Negative /ul LEUK Normal ESTERASE Negative LAB L400.4050 0-5 /hpf WBC 0 Normal SEEN LAB L400.4100 0-5 /hpf Normal RBC-UA 0-5 SEEN LAB L400.4150 5-10 /hpf SQUAM 0 Normal EPI SEEN LAB L400.4300 None Seen /hpf Normal BACTERIA RARE LAB L400.4350 <or=2+ /hpf 0 Normal MUCUS, URINE SEEN Performed By: #### L400.0001 #### [facility] [address] [place], [address] CHIROPRACTIC REPORT Observed: 06/20/2018 Status: F Source: [place] 8:40 AM [facility] REPOSITORY [facility] [address] [place] [address] OFFICE VISIT Date of Service: 06/20/18 MR#: [id number] Acct: [id number] Name: CRISTY CORDOVA Rep #: [id number] : 1985 Provider: Kim Carter D.C. Age/Sex: 32/F Location: [facility] Status: Signed Intake Vital Signs06/20/18 Height 5 ft 3 in 06/20/18 Weight: 155 lb 06/20/18 Body Mass Index (BMI) 27.4 Intake Visit Reasons: back pain Chief Complaint: L sided low back pain Is patient in pain?: Yes Allergies No Known Allergies Allergy (Unverified 05/02/18 09:21) Medications vits 75-iron 28 mg-folic acid 800 mcg-omega3 440 mg oral pack pkg PO 05/02/18 [History Confirmed 05/02/18] [facility] Medical History Hyperthyroidism (Acute) and not yet delivered (Acute) Family History Other CVA (cerebral vascular accident) Heart disease High cholesterol Hypertension Social History Smoking Status: Never smoker alcohol intake: never substance use type: does not use what type of physical activity do you participate in: other details: crossfit frequency: 3-4 times per week HPI back pain : Chief Complaint: L sided low back pain Visit Number: 8 Details: CRISTY CORDOVA is a 32 year old F who presents with increased L sided low back pain. She states that over the past two weeks her pain has started increasing, causing the SI pain to return. Today She rates her pain a 4/10 and describes it as a tight and sharp shooting pain that radiates into the L leg. She has also now noticed the pain on the right side as well. Walking, bending, lifting, and prolonged standing causes increased pain. Cristy denies any numbness, tingling, or radiculopathy. Location: L sided low back pain Duration: intermittent Aggravating or associated factors: walking, bending, and lifting Relieving factors: chiro Pain Quality: aching, dull, cramping Exam Musc General: Yes normal posture ( ), normal gait, joint tenderness (L4, L5, L/R SI) and decreased ROM Thoracic/Lumbar Spine: thoracic and lumbar spine normal to inspection, paraspinal tenderness on the left in the lower lumbar, thoraco-lumbar ROM limited with forward flexion and with lateral flexion to the left, pain with thoraco-lumbar ROM with lateral flexion to the left and with forward flexion, Lasegue's sign negative on the left, thoraco-lumbar spasm on the right (round ligament(anteriorly)) Sacroiliac joints: on the right Sacrum: tenderness on the left Office Procedures Chiropractic Treatments Procedures Manipulation: 3-4 regions (L4, L sacrum, RIL) Assessment AND Plan 1. Segmental and somatic dysfunction of pelvic region M99.05 Orders Orders: 2. Segmental and somatic dysfunction of lumbar region M99.03 Orders Orders: 3. Segmental and somatic dysfunction of sacral region M99.04 Orders Orders: Plan Detail Goals Decrease pain and inflammation Improve pelvic leveling Follow Up 2 Weeks Coding Level of Care Code No Charge Diagnoses Segmental and somatic dysfunction of pelvic region M99.05 Segmental and somatic dysfunction of lumbar region M99.03 Segmental and somatic dysfunction of sacral region M99.04 Additional Codes Procedures - Manipulation: 3-4 regions (16982) 06/20/18 0840 <Electronically signed by Kim Carter D.C.> Date Kim Carter D.C. Cosigner Signature: Date (if applicable) CC: PROGRESS Observed: 06/19/2018 Status: COMPLETED Source: [place] 9:09 AM [facility] REPOSITORY HNO ID: [id number] Author: Flaco Yanes Service: (none) Author Type: Physician Type: Progress Notes Filed: 06/19/2018 9:09 AM Note Text: lab reviewed, please place result in chart. Flaco Yanes MD` CBC AND DIFFERENTIAL Collected: 06/16/2018 Status: F Source: [place] 4:28 PM [facility] REPOSITORY TYPE CODE TESTS RESULT OUT OF REFERENCE UNITS RANGE LAB WBC 3.70-11.00 k/uL WBC 9.66 LAB RBC 3.90-5.20 m/uL Low RBC 3.83 LAB HGB 11.5-15.5 g/dL Hemoglobin 12.1 LAB HCT 36.0-46.0 % Hematocrit 37.1 LAB MCV 80.0-100.0 fL MCV 96.9 LAB MCH 26.0-34.0 pG MCH 31.6 LAB MCHC 30.5-36.0 g/dL MCHC 32.6 LAB RDWCV 11.5-15.0 % RDW-CV 13.2 LAB PLTCT 150-400 k/uL Platelet Count 223 LAB MPV 9.0-12.7 fL MPV 10.2 LAB ANEUT % Neut% 70.7 LAB AANEUT 1.45-7.50 k/uL Abs Neut 6.82 LAB ALYMP % Lymph% 18.6 LAB AALYMP 1.00-4.00 k/uL Abs Lymph 1.80 LAB AMONO % Chaves% 9.6 LAB AAMONO <0.87 k/uL Abs Chaves High 0.93 LAB AEOS % Eosin% 0.9 LAB AAEOS <0.46 k/uL Abs Eosin 0.09 LAB ABASO % Baso% 0.2 LAB AABASO <0.11 k/uL Abs Baso <0.03 LAB AUNRBC 0 /100 WBC NRBCs 0.0 LAB ABNRBC <0.01 k/uL Absolute nRBC <0.01 LAB DTYP DTYPE Auto Diff Performed By: #### CBCDIF #### [facility] [address] [place], [place] [address] 50G, 1HR GEST. Collected: 06/16/2018 Status: F Source: [place] [facility] 4:28 PM [facility] REPOSITORY TYPE CODE TESTS RESULT OUT OF REFERENCE UNITS RANGE LAB GLUP 74-134 mg/dL Glucose 122 Screen, Preg Result Comment: [place] [employer] of [employer] (Kenia/Davon) guidelines state a gestational diabetes mellitus positive screen is made, in women not previously diagnosed with overt diabetes, when the 1 hr plasma glucose level is equal to or above 140 mg/dL. [facility] recommends a 135 mg/dL cutoff. Performed By: #### GLTGST #### [facility] [address] [place], [place] [address] PROGRESS Observed: 06/16/2018 Status: COMPLETED Source: [place] 3:27 PM [facility] REPOSITORY HNO ID: [id number] Author: Chula Lindquist Ma Service: (none) Author Type: (none) Type: Progress Notes Filed: 06/16/2018 4:04 PM Note Text: 32 year old female here for INACTIVATED INFLUENZA VACCINE. 3438-3029 Season Patient is identified by name and date of : Yes [] CONTRAINDICATIONS color enhanced section Age less than 6 months? No Allergy to eggs, chicken, chicken feathers, or chicken dander? No Allergy to thimerosal (a preservative) or formaldehyde? No History of severe reaction to any vaccine component or a previous dose of influenza vaccination? No History of Guillain-Mendon Syndrome within 6 weeks after a previous influenza vaccine? No Current moderate or severe illness? No Current temperature greater or equal to 100.4F? No History of Bone Marrow Transplant in past 6 months or solid organ transplant in the past 3 months ? No [] VERIFICATION color enhanced section Was the answer Yes for any of the above contraindications? No contraindications present. Acceptable to proceed with vaccine. Patient/guardian agrees the above answers are true to the best of their knowledge? Yes Flu vaccine information sheet given? Yes See immunization activity in [facility] for details of immunizations adminstered today. Patient age: [age] year old For The 2210-0928 Flu Season 6-35 months old: Fluzone 0.25 ml - IM (Preservative Free) 3 years of age: Fluzone 0.5 ml - IM (Preservative Free) 3 years and older: Fluzone 0.5 ml- IM-(with Preservatives) 65+ years old: Fluzone High-Dose 0.5 ml - IM (Preservative Free) REMEMBER: If patient is less than 9 years of age and this is the first vaccine of Influenza to be received in any flu season, they should receive a second dose in one months time. CHIROPRACTIC REPORT Observed: 05/23/2018 Status: F Source: [place] 1:19 PM [facility] [address] [place] [address] OFFICE VISIT Date of Service: 05/23/18 MR#: [id number] Acct: [id number] Name: CRISTY CORDOVA Timbo Rep #: [id number] : 1985 Provider: Kim Carter D.C. Age/Sex: 32/F Location: [facility] Status: Signed Intake Vital Signs05/23/18 Height 5 ft 3 in 05/23/18 Weight: 155 lb 05/23/18 Body Mass Index (BMI) 27.4 Intake Visit Reasons: back pain Chief Complaint: L sided low back pain Is patient in pain?: Yes Allergies No Known Allergies Allergy (Unverified 05/02/18 09:21) Medications vits 75-iron 28 mg-folic acid 800 mcg-omega3 440 mg oral pack pkg PO 05/02/18 [History Confirmed 05/02/18] [facility] Medical History Hyperthyroidism (Acute) and not yet delivered (Acute) Family History Other CVA (cerebral vascular accident) Heart disease High cholesterol Hypertension Social History Smoking Status: Never smoker alcohol intake: never substance use type: does not use what type of physical activity do you participate in: other details: crossfit frequency: 3-4 times per week HPI back pain : Chief Complaint: L sided low back pain Visit Number: 7 Details: CRISTY CORDOVA is a 32 year old F who presents with decreased low back pain. She states that overall she has not been experiencing any sharp shooting pain. At times after walking a long distance she will notice a tight ache into the L leg, although after resting the pain does subside. Today Cristy rates her pain a 2/10 and describes it as a dull ache that is on the L low back. She denies any numbness, tingling, or radiculopathy. Location: L low back Duration: intermittent Aggravating or associated factors: walking Relieving factors: chiro Pain Quality: aching, dull, cramping Exam Musc General: Yes normal posture ( ), normal gait, joint tenderness (L4, L5, L SI) and decreased ROM Thoracic/Lumbar Spine: thoracic and lumbar spine normal to inspection, paraspinal tenderness (slightly improving) on the left in the lower lumbar, thoraco- lumbar ROM limited with forward flexion and with lateral flexion to the left, pain with thoraco- lumbar ROM with lateral flexion to the left and with forward flexion, Lasegue's sign negative on the left, thoraco-lumbar spasm on the right (round ligament(anteriorly)) Sacroiliac joints: bilaterally Sacrum: tenderness Office Procedures Chiropractic Treatments Procedures Manipulation: 3-4 regions (L4, L sacrum, RIL) Assessment AND Plan 1. Segmental and somatic dysfunction of pelvic region M99.05 Orders Orders: 2. Segmental and somatic dysfunction of sacral region M99.04 Orders Orders: 3. Segmental and somatic dysfunction of lumbar region M99.03 Orders Orders: Plan Detail Goals Decrease pain and inflammation Improve pelvic leveling Follow Up 1 Month Coding Level of Care Code No Charge Diagnoses Segmental and somatic dysfunction of pelvic region M99.05 Segmental and somatic dysfunction of sacral region M99.04 Segmental and somatic dysfunction of lumbar region M99.03 Additional Codes Procedures - Manipulation: 3-4 regions (20511) 05/23/18 1319 <Electronically signed by Kim Carter D.C.> Date Kim Becerraigner Signature: Date (if applicable) CC: CHIROPRACTIC REPORT Observed: 05/22/2018 Status: F Source: [place] 12:59 PM [facility] [address] [place] [address] OFFICE VISIT Date of Service: 05/17/18 MR#: [id number] Acct: [id number] Name: CRISTY CORDOVA Rep #: [id number] : 1985 Provider: Kim Carter D.C. Age/Sex: 32/F Location: [facility] Status: Signed Intake Vital Signs05/17/18 Height 5 ft 3 in 05/17/18 Weight: 154 lb 05/17/18 Body Mass Index (BMI) 27.3 Intake Visit Reasons: back pain Chief Complaint: L sided low back pain Is patient in pain?: No Allergies No Known Allergies Allergy (Unverified 05/02/18 09:21) Medications vits 75-iron 28 mg-folic acid 800 mcg-omega3 440 mg oral pack pkg PO 05/02/18 [History Confirmed 05/02/18] PFSH Medical History Hyperthyroidism (Acute) and not yet delivered (Acute) Family History Other CVA (cerebral vascular accident) Heart disease High cholesterol Hypertension Social History Smoking Status: Never smoker alcohol intake: never substance use type: does not use what type of physical activity do you participate in: other details: crossfit frequency: 3-4 times per week HPI back pain : Chief Complaint: L sided low back pain Visit Number: 6 Details: CRISTY CORDOVA is a 32 year old F who is 26 weeks and presents with decreased low back pain. She states that since her last treatment she is only left with a dull ache. At times after prolonged walking, bending, and lifting she will experience a slight sharp pain into the L leg. Cristy denies any numbness, tingling, or radiculopathy. Location: L low back Duration: intermittent Aggravating or associated factors: prolonged walking, bending and lifting Relieving factors: chiro Pain Quality: aching, dull, cramping Exam Musc General: Yes normal posture ( ), normal gait, joint tenderness (L4, L5, L SI) and decreased ROM Thoracic/Lumbar Spine: thoracic and lumbar spine normal to inspection, paraspinal tenderness (slightly improving) on the left in the lower lumbar, thoraco- lumbar ROM limited with forward flexion and with lateral flexion to the left, pain with thoraco- lumbar ROM with lateral flexion to the left and with forward flexion, Lasegue's sign negative on the left, thoraco-lumbar spasm on the right (round ligament(anteriorly)) Sacroiliac joints: bilaterally Sacrum: tenderness Office Procedures Chiropractic Treatments Procedures Manipulation: 3-4 regions (L4, L Sacrum, RIL) Assessment AND Plan 1. Segmental and somatic dysfunction of pelvic region M99.05 Orders Orders: 2. Segmental and somatic dysfunction of sacral region M99.04 Orders Orders: 3. Segmental and somatic dysfunction of lumbar region M99.03 Orders Orders: Plan Detail Goals Decrease pain and inflammation Improve pelvic leveling Follow Up 1 x week Coding Level of Care Code No Charge Diagnoses Segmental and somatic dysfunction of pelvic region M99.05 Segmental and somatic dysfunction of sacral region M99.04 Segmental and somatic dysfunction of lumbar region M99.03 Additional Codes Procedures - Manipulation: 3-4 regions (23011) 05/22/18 1259 <Electronically signed by Kim Carter D.C.> Date Kim Carter D.C. Cosigner Signature: Date (if applicable) CC: CHIROPRACTIC REPORT Observed: 05/18/2018 Status: F Source: [place] 3:02 PM [facility] [address] [place] [address] OFFICE VISIT Date of Service: 05/10/18 MR#: [id number] Acct: [id number] Name: CRISTY CORDOVA Rep #: [id number] : 1985 Provider: Kim Carter D.C. Age/Sex: 32/F Location: [facility] Status: Signed Intake Vital Signs05/10/18 Height 5 ft 3 in 05/10/18 Weight: 154 lb 05/10/18 Body Mass Index (BMI) 27.3 Intake Visit Reasons: back pain Chief Complaint: L sided low back pain Is patient in pain?: Yes Allergies No Known Allergies Allergy (Unverified 05/02/18 09:21) Medications vits 75-iron 28 mg-folic acid 800 mcg-omega3 440 mg oral pack pkg PO 05/02/18 [History Confirmed 05/02/18] PFSH Medical History Hyperthyroidism (Acute) and not yet delivered (Acute) Family History Other CVA (cerebral vascular accident) Heart disease High cholesterol Hypertension Social History Smoking Status: Never smoker alcohol intake: never substance use type: does not use what type of physical activity do you participate in: other details: crossfit frequency: 3-4 times per week HPI back pain : Chief Complaint: low back pain Visit Number: 4 Details: CRISTY CORDOVA is a 32 year old F who is currently 23 weeks and presents with decreased low back pain. Cristy states that since her last treatment she has no longer been experiencing pain radiating into the legs. After a long walk, or frequent bending the pain does become more of an intense ache that does band around the back. Cristy denies any numbness, tingling, or radiculopathy. Location: low back Duration: intermittent Aggravating or associated factors: prolonged walking and bending Relieving factors: chiro Pain Quality: aching, dull, cramping Exam Musc General: Yes normal posture (22 wks ), normal gait, joint tenderness (L4, L5, L SI) and decreased ROM Thoracic/Lumbar Spine: thoracic and lumbar spine normal to inspection, paraspinal tenderness on the left in the lower lumbar, thoraco-lumbar ROM limited with forward flexion and with lateral flexion to the left, pain with thoraco-lumbar ROM with lateral flexion to the left and with forward flexion, Lasegue's sign negative on the left, thoraco-lumbar spasm on the right (round ligament(anteriorly)) Sacroiliac joints: bilaterally Sacrum: tenderness Office Procedures Chiropractic Treatments Procedures Manipulation: 3-4 regions (L4,L sacrum, RIL) Assessment AND Plan 1. Segmental and somatic dysfunction of pelvic region M99.05 Orders Orders: 2. Segmental and somatic dysfunction of sacral region M99.04 Orders Orders: 3. Segmental and somatic dysfunction of lumbar region M99.03 Orders Orders: Plan Detail Goals Decrease pain and inflammation Improve pelvic leveling Follow Up 1 x week Coding Level of Care Code No Charge Diagnoses Segmental and somatic dysfunction of pelvic region M99.05 Segmental and somatic dysfunction of sacral region M99.04 Segmental and somatic dysfunction of lumbar region M99.03 Additional Codes Procedures - Manipulation: 3-4 regions (53790) 05/18/18 1502 <Electronically signed by Kim Carter D.C.> Date Kim Carter D.C. Cosigner Signature: Date (if applicable) CC: CHIROPRACTIC REPORT Observed: 05/15/2018 Status: F Source: [place] 10:04 AM [facility] [address] [place] [id number] OFFICE VISIT Date of Service: 05/08/18 MR#: [id number] Acct: [id number] Name: CRISTY CORDOVA Rep #: [id number] : 1985 Provider: Kim Carter D.C. Age/Sex: 32/F Location: [facility] Status: Signed Intake Vital Signs05/08/18 Height 5 ft 3 in 05/08/18 Weight: 154 lb 05/08/18 Body Mass Index (BMI) 27.3 Intake Visit Reasons: back pain Chief Complaint: L sided low back pain Is patient in pain?: Yes Allergies No Known Allergies Allergy (Unverified 05/02/18 09:21) Medications vits 75-iron 28 mg-folic acid 800 mcg-omega3 440 mg oral pack pkg PO 05/02/18 [History Confirmed 05/02/18] Patient : Yes PFSH Medical History Hyperthyroidism (Acute) and not yet delivered (Acute) Family History Other CVA (cerebral vascular accident) Heart disease High cholesterol Hypertension Social History Smoking Status: Never smoker alcohol intake: never substance use type: does not use what type of physical activity do you participate in: other details: crossfit frequency: 3-4 times per week HPI back pain : Chief Complaint: L sided low back pain Visit Number: 4 Details: CRISTY CORDOVA is a 32 year old F who presents with L sided low back pain. She states that over the weekend she began experiencing left sided low back pain and mid back pain. Today Cristy rates her pain a 4/10 and describes it as an ache that bands across the low back. Bending, walking, and lifting all cause increased pain, although she denies any numbness, tingling, or radiculopathy. Onset: 05/05/18 Location: low back Duration: intermittent Aggravating or associated factors: bending, lifting, and twisting Relieving factors: chiro Pain Quality: aching, dull, sharp Exam Musc General: Yes normal posture ( ), normal gait, joint tenderness (L4, L5, L SI) and decreased ROM Thoracic/Lumbar Spine: thoracic and lumbar spine normal to inspection, paraspinal tenderness on the left in the lower lumbar, thoraco-lumbar ROM limited with forward flexion and with lateral flexion to the left, pain with thoraco-lumbar ROM with lateral flexion to the left and with forward flexion, Lasegue's sign negative on the left, thoraco-lumbar spasm on the right (round ligament(anteriorly)) Sacroiliac joints: bilaterally Sacrum: tenderness Office Procedures Chiropractic Treatments Procedures Manipulation: 3-4 regions (L4, L sacrum, RIL) Assessment AND Plan 1. Segmental and somatic dysfunction of pelvic region M99.05 Orders Orders: 2. Segmental and somatic dysfunction of sacral region M99.04 Orders Orders: 3. Segmental and somatic dysfunction of lumbar region M99.03 Orders Orders: Plan Detail Goals Decrease pain and inflammation Improve pelvic leveling Follow Up 2 x week Coding Level of Care Code No Charge Diagnoses Segmental and somatic dysfunction of pelvic region M99.05 Segmental and somatic dysfunction of sacral region M99.04 Segmental and somatic dysfunction of lumbar region M99.03 Additional Codes Procedures - Manipulation: 3-4 regions (17736) 05/15/18 1004 <Electronically signed by Kim Carter D.C.> Date Kim Carter D.C. Cosigner Signature: Date (if applicable) CC: CHIROPRACTIC REPORT Observed: 05/09/2018 Status: F Source: [place] 1:52 PM [facility] [address] [place] [address] OFFICE VISIT Date of Service: 05/04/18 MR#: [id number] Acct: [id number] Name: RAFIACRISTY Rep #: [id number] : 1985 Provider: Kim Carter D.C. Age/Sex: 32/F Location: [facility] Status: Signed Intake Vital Signs05/04/18 Height 5 ft 3 in 05/04/18 Weight: 154 lb 05/04/18 Body Mass Index (BMI) 27.3 Intake Visit Reasons: back pain Chief Complaint: L sided low back pain Is patient in pain?: Yes Allergies No Known Allergies Allergy (Unverified 05/02/18 09:21) Medications vits 75-iron 28 mg-folic acid 800 mcg-omega3 440 mg oral pack pkg PO 05/02/18 [History Confirmed 05/02/18] PFSH Medical History Hyperthyroidism (Acute) and not yet delivered (Acute) Family History Other CVA (cerebral vascular accident) Heart disease High cholesterol Hypertension Social History Smoking Status: Never smoker alcohol intake: never substance use type: does not use what type of physical activity do you participate in: other details: crossfit frequency: 3-4 times per week HPI back pain: Chief Complaint: L sided low back pain Visit Number: 3 Details: CRISTY CORDOVA is a 32 year old F who is currently 23 weeks presents with increased low back pain. She states that yesterday after a long walk she began experiencing a tight and sharp pain on either side of the low back. Today Cristy rates her pain a 4/10 and describes it as a tight and deep ache that is constant. Walking, bending, and lifting all cause increased pain. The patient denies any numbness, tingling, or radiculopathy. Onset: 05/03/18 Location: low back Duration: constant Aggravating or associated factors: walking, bending, lifting and twisting Relieving factors: chiro Pain Quality: aching, dull, cramping Exam Musc General: Yes normal posture (22 wks ), normal gait, joint tenderness (L4, L5, L SI) and decreased ROM Thoracic/Lumbar Spine: thoracic and lumbar spine normal to inspection, paraspinal tenderness on the left in the lower lumbar, thoraco-lumbar ROM limited with forward flexion and with lateral flexion to the left, pain with thoraco-lumbar ROM with lateral flexion to the left and with forward flexion, Lasegue's sign negative on the left, thoraco-lumbar spasm on the right (round ligament(anteriorly)) Sacroiliac joints: bilaterally Sacrum: tenderness Office Procedures Chiropractic Treatments Procedures Manipulation: 3-4 regions (L4, L sacrum, RIL) Assessment AND Plan 1. Segmental and somatic dysfunction of pelvic region M99.05 Orders Orders: 2. Segmental and somatic dysfunction of sacral region M99.04 Orders Orders: 3. Segmental and somatic dysfunction of lumbar region M99.03 Orders Orders: Plan Detail Goals Decrease pain and inflammation Improve pelvic leveling Follow Up 2 x week Coding Level of Care Code No Charge Diagnoses Segmental and somatic dysfunction of pelvic region M99.05 Segmental and somatic dysfunction of sacral region M99.04 Segmental and somatic dysfunction of lumbar region M99.03 Additional Codes Procedures - Manipulation: 3-4 regions (28601) 05/09/18 1352 <Electronically signed by Kim Carter D.C.> Date Kim Carter D.C. Cosigner Signature: Date (if applicable) CC: CHIROPRACTIC REPORT Observed: 05/08/2018 Status: F Source: [place] 11:32 AM [facility] [address] [place] [address] OFFICE VISIT Date of Service: 05/02/18 MR#: [id number] Acct: [id number] Name: CRISTY CORDOVA Rep #: [id number] : 1985 Provider: Kim Carter D.C. Age/Sex: 32/F Location: [facility] Status: Signed Intake Vital Signs05/02/18 Height 5 ft 5 in 05/02/18 Weight: 153 lb 05/02/18 Body Mass Index (BMI) 25.4 Intake Visit Reasons: back pain Chief Complaint: L sided low back pain Is patient in pain?: Yes Allergies No Known Allergies Allergy (Unverified 05/02/18 09:21) Medications vits 75-iron 28 mg-folic acid 800 mcg-omega3 440 mg oral pack pkg PO 05/02/18 [History Confirmed 05/02/18] [facility] Medical History Hyperthyroidism (Acute) and not yet delivered (Acute) Family History Other CVA (cerebral vascular accident) Heart disease High cholesterol Hypertension Social History Smoking Status: Never smoker alcohol intake: never substance use type: does not use what type of physical activity do you participate in: other details: crossfit frequency: 3-4 times per week HPI back pain: Chief Complaint: L sided low back pain Visit Number: 2 Details: CRISTY CORDOVA is a 32 year old F who is currently 22 weeks . She states that after her last treatment her pain has greatly decreased leaving her with only a sore ache in the L low back. When sitting for walking for a long period of time there is still presence of sharp pain radiating into the leg, although she denies any numbness, or tingling. Location: L low back Duration: intermittent Aggravating or associated factors: prolonged sitting and walking Relieving factors: chiro Pain Quality: aching, dull, sharp, cramping Exam Musc General: Yes normal posture, normal gait, joint tenderness (L4, L5, L SI) and decreased ROM Thoracic/Lumbar Spine: thoracic and lumbar spine normal to inspection, paraspinal tenderness (slightly improved) on the left in the lower lumbar, thoraco- lumbar ROM limited with forward flexion and with lateral flexion to the left, pain with thoraco- lumbar ROM with lateral flexion to the left and with forward flexion, Lasegue's sign negative on the left, thoraco-lumbar spasm (slightly improved) on the right (round ligament(anteriorly)) Sacroiliac joints: bilaterally Sacrum: tenderness Office Procedures Chiropractic Treatments Procedures Manipulation: 3-4 regions (L4, L sacrum, RIL) Assessment AND Plan 1. Segmental and somatic dysfunction of lumbar region M99.03 Orders Orders: 2. Segmental and somatic dysfunction of pelvic region M99.05 3. Segmental and somatic dysfunction of sacral region M99.04 Plan Detail Goals Decrease pain and inflammation Improve pelvic leveling Follow Up 2 x week Coding Level of Care Code No Charge Diagnoses Segmental and somatic dysfunction of lumbar region M99.03 Segmental and somatic dysfunction of pelvic region M99.05 Segmental and somatic dysfunction of sacral region M99.04 Additional Codes Procedures - Manipulation: 3-4 regions (06497) 05/08/18 1132 <Electronically signed by Kim Carter D.C.> Date Kim Carter D.C. Cosigner Signature: Date (if applicable) CC: CHIROPRACTIC REPORT Observed: 05/03/2018 Status: F Source: [place] 2:11 PM [facility] [address] [place] [address] OFFICE VISIT Date of Service: 04/27/18 MR#: [id number] Acct: [id number] Name: CRISTY CORDOVA Rep #: [id number] : 1985 Provider: Kim Carter D.C. Age/Sex: 32/F Location: [facility] Status: Signed Intake Vital Signs04/27/18 Height 5 ft 5 in 04/27/18 Weight: 153 lb 04/27/18 Body Mass Index (BMI) 25.4 Intake Visit Reasons: back pain Chief Complaint: L sided low back pain Is patient in pain?: Yes Allergies No Known Allergies Allergy (Unverified 05/02/18 09:21) Medications vits 75-iron 28 mg-folic acid 800 mcg-omega3 440 mg oral pack pkg PO 05/02/18 [History Confirmed 05/02/18] PFSH Medical History Hyperthyroidism (Acute) and not yet delivered (Acute) Family History Other CVA (cerebral vascular accident) Heart disease High cholesterol Hypertension Social History Smoking Status: Never smoker alcohol intake: never substance use type: does not use what type of physical activity do you participate in: other details: crossfit frequency: 3-4 times per week HPI back pain : Chief Complaint: L sided low back pain Visit Number: 1 Referral source: Arthena ad Details: CRISTY CORDOVA is a 32 year old F who is currently 22 weeks . She states that roughly two weeks ago she began experiencing L sided low back pain. The pain is described as a sharp throb that does radiate into the thigh, there is presence of tingling in the leg at night. Sitting, standing, walking and laying flat all cause increased pain. Currently the patient rates her pain a 6/10 and describes it as a tight throb that begins in the L low back and radiates into the upper thigh. Onset: 04/13/18 Location: L low back Duration: constant Aggravating or associated factors: sitting, standing, walking and laying flat Pain Quality: aching, dull, sharp, cramping, radiating Exam Musc General: Yes normal posture (22 wks ), normal gait, joint tenderness (L4, L5, L SI) and decreased ROM Thoracic/Lumbar Spine: thoracic and lumbar spine normal to inspection, paraspinal tenderness on the left in the lower lumbar, thoraco-lumbar ROM limited with forward flexion and with lateral flexion to the left, pain with thoraco-lumbar ROM with lateral flexion to the left and with forward flexion, Lasegue's sign negative on the left, thoraco-lumbar spasm on the right (round ligament(anteriorly)) Sacroiliac joints: bilaterally Sacrum: tenderness Office Procedures Chiropractic Treatments Procedures Manipulation: 3-4 regions (L4, L sacrum, RIL) Assessment AND Plan Problems 1. Segmental and somatic dysfunction of lumbar region M99.03 2. Segmental and somatic dysfunction of sacral region M99.04 3. Segmental and somatic dysfunction of pelvic region M99.05 Plan Recommend acute care treatment plan. Orders Orders: Plan Detail Goals Decrease pain and inflammation Improve pelvic leveling Follow Up 2x/wk Coding Level of Care Code Off vis,new,level 3 Diagnoses Segmental and somatic dysfunction of lumbar region M99.03 Segmental and somatic dysfunction of sacral region M99.04 Segmental and somatic dysfunction of pelvic region M99.05 Additional Codes Procedures - Manipulation: 3-4 regions (22762) 05/03/18 1411 <Electronically signed by Kim Carter D.C.> Date Kim Dossi D.C. Cosigner Signature: Date (if applicable) CC: PROGRESS Observed: 04/18/2018 Status: COMPLETED Source: [place] 11:29 AM [facility] REPOS[facility] HNO ID: [id number] Author: Jenny Barton Service: (none) Author Type: Physician Type: Progress Notes Filed: 04/18/2018 11:33 AM Note Text: A denise? fetus in utero with symmetric measurements Adequate growth (AGA). Estimated Date of Delivery: 09/03/18 EGA = 20w2d The anatomy appears normal. There are no evident malformations and /or effusions. No genetic markers are noted. The amniotic fluid volume is within normal limits. The sensitivity of ultrasound in the detection of malformations overall is approximately 35%. RECOMMENDATIONS: - Follow up ultrasound as clinically indicated TOXICOLOGY SCREEN,UR Collected: 02/23/2018 Status: F Source: [place] 3:35 PM [facility] REPOSITORY TYPE CODE TESTS RESULT OUT OF REFERENCE UNITS RANGE LAB UPCP2 Negative Negative Phencyclidin e, Urine Result Comment: Cutoff threshold at 25 ng/mL. LAB UBENZ2 Negative Benzodiazepines, Ur Negative Result Comment: Cutoff threshold at 200 ng/mL. LAB UCOC2 Negative Cocaine, Negative Urine Result Comment: Cutoff threshold at 300 ng/mL. LAB UAMPH2 Negative Amphetamines, Urine Negative Result Comment: Cutoff threshold at 1000 ng/mL. LAB UTHC2 Negative Cannabinoids, Urine Negative Result Comment: Cutoff threshold at 50 ng/mL. LAB UOPI2 Negative Opiates, Negative Urine Result Comment: Cutoff threshold at 300 ng/mL. LAB UBARB2 Negative Barbiturates, Urine Negative Result Comment: Cutoff threshold at 200 ng/mL. LAB UETOH <11 mg/dL <11 Ethanol, Urine LAB UOXYC Negative Oxycodone, Negative Urine Result Comment: Cutoff threshold at 100 ng/mL. Comment: Immunoassay screen only. Cross reactivity with other substances can occur with immunoassay screening. Detection of any drug(s) in this urine toxicology panel is presumptive only. These tests are for med ical purposes only and should not be used for compliance monitoring, legal, or forensic use. In clinical settings, confirmatory testing is at the practitioner's discretion [1]. If clinically indicated, confirmation by high specificity, quantitative methodology may be requested on the same speci men through Client Services ([phone]) if contacted within 48 hours of initial testing. [1]Substance Abuse and Mental Health Services Administration (2012). Clinical Drug Testing in Primary Care Technical Assistance Publication Series 32. Department of Health and Human Services, [place], p.10. These tests were developed and their performance characteristics determined by [facility]'s Mikal Venecia [facility] [place] ([facility]). They have not been cleared or a pproved by the FDA. [facility] is regulated under CLIA as qualified to perform high complexity testing. These tests are used for clinical purposes. They should not be regarded as investigational or for research. Performed By: #### [id number] #### [facility] [address], [place] [address] Observed: 02/23/2018 Status: F Source: [place] URINE CULTURE 3:35 PM [facility] REPOSITORY Sp. Request/Comment: - Specimen received in preservative Culture Result - <10,000 CFU/ml Normal urogenital julius Performed By: #### URCUL #### [place] [id number] [place] [id number] PROGRESS Observed: 02/23/2018 Status: COMPLETED Source: [place] 3:14 PM [facility] REPOSITORY HNO ID: [id number] Author: Flaco Yanes Service: (none) Author Type: Physician Type: Progress Notes Filed: 02/23/2018 4:09 PM Note Text: INITIAL OB ASSESSMENT OB Provider: Flaco Yanes MD HPI: Cristy Cordova is a 32 year old female here to establish Obstetrical Care. No LMP recorded. Patient is . from OB Dating Form. Cycle length: regular in number days Complaints: nausea improved was planned. Obstetric History T0 L0 SAB0 TAB0 Ectopic0 Multiple0 Live Births0 Prior : never History of 4th degree laceration: No Patient's Risk Screening for delivery: History of abnormal pap: Yes Prior treatment for cervical dysplasia: none. History of STDs: None Tobacco use: No Caffeine use: No Drug use: No Alcohol use: No Multivitamin with Folic acid: Yes Occupation: [email or web address] [place] Mu-Ism or heritage: No Would refuse blood transfusion if medically necessary: No No weight on file for this encounter. Patient BMI over 30? 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 PNV95/FERROUS FUMARATE/FA ( ORAL) Take by mouth once daily. ZOLMITRIPTAN (ZOMIG ORAL) Take 1 tablet by mouth as needed. No current facility-administered medications on file prior to visit. Review of Systems: GENERAL: Negative for: Fever or Chills HEENT: Negative for: Headache, Impaired Vision, Ringing in Ears, Nosebleeds NECK: Negative for: Swelling, Pain, Stiffness RESPIRATORY: Negative for: Cough, Shortness of breath, Wheezing GASTROINTESTINAL: Negative for: Heartburn, Constipation, Diarrhea, Blood in stool, Vomiting, some nausea MUSCULOSKELETAL: Negative for: Muscle or joint pain, stiffness, Joint swelling NEUROLOGIC/PSYCHIATRIC: Negative for: Weakness, Paralysis, Numbness, Tingling, Tremor, Anxiety, Depression, Memory loss SKIN: Negative for: Rash, Itching GENITOURINARY: Negative for: vaginal itching, vaginal discharge, hematuria or dysuria PHYSICAL EXAM: There were no vitals taken for this visit. GENERAL: pleasant female in no apparent distress DERMATOLOGY: Normal, without lesions, non-icteric and non-hirsute NECK: Supple, full range of motion, no adenopathy and thyroid normal CHEST: Normal inspiratory effort BREAST: deferred ABDOMEN: soft, non-tender and no masses NEURO: alert and oriented x3,exam grossly non-focal PELVIS: deferred Clinical Pelvimetry: Pelvimetry clinically assessed as adequate previous exam Limited OB ultrasound exam: single intrauterine ASSESSMENT: 32 year old at 12w4d wks gestational age PLAN: 1) Patient oriented to practice. Discussed nutrition, folic acid supplementation, dietary guidelines, exercise, smoking, alcohol, caffeine, and drug use. Discussed routine OB labs including STD/HIV. Patient declines all aneuploidy screening. Had CF screening, had preimplantation genetic testing so will not do further testing Follow up in 4 weeks or sooner prn. Flaco Yanes MD CNNURSE Observed: 02/23/2018 Status: COMPLETED Source: [place] 3:00 PM [facility] REPOSITORY Nurse Visit (WOOB) CRISTY CORDOVA ([id number]) 1985 F COW Date Time Provider Department 02/23/18 3:00 PM NURSE PNOB [facility] WSTR WOOB During your visit today, we recorded the following information about you: Last Period 11/30/17 Alexia Martinez RN 02/23/2018 3:35 PM Signed SEQUENTIAL SCREENINGS [facility] offers sequential screenings for women who are interested in screenings for chromosomal abnormalities and certain defects during a . The sequential screen combines ultrasound and blood tests to determine the risk of chromosomal abnormalities, including Down's Syndrome (Trisomy 21) and Trisomy 18, as well as open neural tube defects including spina bifida. Ultrasound examination is performed between 11 weeks and 13 weeks gestational age. Blood tests are drawn after the ultrasound and again later in the between 15 and 21 weeks gestational age. Please let your physician know if you are interested in this testing. It will require an appointment with our military administrative technician. This is not an ultrasound performed by a physician in our office during a routine visit. SIGNS AND SYMPTOMS OF LABOR 1. Contractions every 10 minutes or more often 2. Clear, pink, or brownish fluid (water) leaking from vagina 3. Feeling that baby is pushing down, pressure 4. Low, dull backache 5. Cramps that feel like a period 6. Cramps with or without diarrhea If you notice any of the above symptoms, contact our office at [phone] and ask to speak with a nurse. After hours, you can call [employer] registry at [phone] OR call [facility] at [phone] and ask to have the doctor press set up person paged. If you consider this an emergency, dial 9-1-1 or go to your nearest emergency department. Cord-Blood Banking Up until recently, the umbilical cord--along with the blood that remained in it after a baby was born and the cord cut--was simply discarded by the hospital. Then, in the late , researchers discovered that cord blood possessed unusual properties that made it useful in the treatment of patients with some cancers and other illnesses. While the actual process of collecting cord blood is straightforward, many parents are not even aware that this option now exists, much less familiar with all the issues involved. The case for saving your baby's cord blood The blood running back and forth between your baby and the placenta is full of immature cells called stem cells. Unlike embryonic stem cells, which have the ability to develop into any type of body cell, cord-blood stem cells already are locked into a certain, vital function: making all the different components of the blood, such as platelets, white blood cells, and red blood cells-serving, in effect, like bone marrow. When transfused into a patient whose own blood cells have faulty genetic coding or have been destroyed by chemotherapy or other cancer treatments, the cord-blood cells can implant themselves in the bone marrow and generate legions of new, healthy cells. These days, cord-blood transplants most commonly are used in cancer patients when a donor can't be found for a bone-marrow transplant. The treatment is particularly effective in young patients-the [facility] Cord Blood Bank reports a 70 percent success rate in children, but only 20 to 40 percent in adults. Researchers envision improving those odds and see many future applications as well, such as curing sickle cell disease and other blood-related genetic illnesses. So there is a possibility that your child, or someone else, may need these super-healthy and versatile cells one day. The drawbacks Aside from not knowing about this medical option, the main reason most people do not save their baby's stem cells is cost. In a private blood bank, the initial costs run from $275 to $1,500. Most also charge a yearly storage fee of $50 to $95. The advantage of using a private bank is that your sample is saved for only you to use. An alternative to private banking Public cord-blood doll are an alternative. These cost no money to use, but your sample is not specifically saved for you. Another person with a more immediate need may use it. If the time should come that you need stem cells, yours may still be available, or you may use donations from other people without charge. You also can direct your sample to go to a relative with an immediate need if the blood type matches. Anyone else needing to use stem cells from a public bank who has not been a donor must pay for it, sometimes tens of thousands of dollars. Will my family benefit from saving stem cells? Right now, situations in which stem cells would be helpful are quite rare. As mentioned earlier, stem-cell transplants are most commonly used for rare genetic conditions and for some types of cancer, including leukemia and lymphoma. And even with these present uses, many questions remain. In cancer treatment, for example, some researchers are concerned about the wisdom of transplanting back into the child the same cells that already showed a propensity to become malignant. Doctors also aren't sure if the number of cells taken at the time of would be enough to treat a full-grown 16-year-old. It is also not completely clear how active the cells would be after years of being stored. The treatment is so new and rare, we just don't have the data yet to resolve these important issues. What do the experts say? The [employer] encourages philanthropic blood banking in public doll, but only for families with a current or potential need. Blood-bank proponents encourage any kind of banking, pointing out that research is getting closer and closer to many diverse, live-saving applications. How do I decide? Each family must weigh the pros and cons for themselves. Some families say that any cost is worth their peace of mind. Others say that in the face of uncertainty about the effectiveness of the treatment, they will use their resources elsewhere. Some choose the middle ground of donating publicly, knowing that their sample might benefit another family, if not themselves. For more information, ask your doctor or nurse, and be sure to check out our article on the technical aspects of cord-blood banking. Technical Aspects of Cord-Blood Banking If you are interested in storing your baby's umbilical-cord blood because of its possible use in emerging medical treatments, you must make arrangements with a blood bank before your child is born. The collection procedure is quite simple: After delivery of the baby, the umbilical cord is clamped and cut in the usual way. The blood that remains in the umbilical-cord vessels is then collected in sterile containers. The blood may be removed from the cord with a large needle or allowed to flow freely, depending on the company's collection system. The containers may look like large test tubes or like the plastic bags used in a blood bank. It does not cause the mother or the baby any pain to collect the blood, and no blood is taken that the baby needs at the moment. The nurse, chassis engineer, or physician will then label the samples, check them over with you, and package them for a special pickup arranged with a commercial carrier. When the blood arrives at the blood-bank facility, it is processed and the parents are notified. It is then kept in an advanced storage system for years. How do I know that my sample is safe? Power outages and bankruptcies potentially could threaten any organization, but so far none have been reported. It is to be hoped that the scientists in these doll would arrange for safe transfer to another facility if the need arose. YOU MUST MAKE ARRANGEMENTS AHEAD OF TIME! Public cord-blood doll--DONATION: [employer] [phone] [facility] Placental Blood Program, [facility] Umbilical Cord Blood Bank, Private cord-blood doll--SAVING FOR YOUR OWN USE: [employer], (I think this is the least expensive) [employer] [phone] [employer], [phone]) [employer] [facility] Cord Blood [facility], [phone] 700-CORD Cells, [phone] [place] Cry[facility]ank, Cord Blood Registry, ([phone]) [facility], An Internet search may provide you with additional listings. Referring Provider: SELF [200] Allergies As of Date: 02/23/2018 (No Known Allergies) Date Reviewed: 02/23/2018 Reviewed by: Chula Lindquist Ma - Fully Assessed Reason for Visit: Care [86] Cmt: Pre-New OB Primary Visit Diagnosis: resulting from assisted reproductive technology, antepartum [O09.819] Other Visit Diagnoses:History of thyroid disease [Z86.39] History of anxiety [Z86.59] Patient travels [Z78.9] Order(s):MARY ANNE PT ED WINDOWS CONSULTANT [] Order #: [id number]: 1 FUTURE MARY ANNE PT ED ANESTHESIA [21190620] Order #: [id number]: 1 FUTURE MARY ANNE PT ED WINDOWS CONSULTANT [] Order #: [id number]: 1 FUTURE MARY ANNE WHAT TO EXPECT DURING YOUR HOSPITAL STAY [] Order #: [id number]: 1 FUTURE MARY ANNE PT ED WINDOWS CONSULTANT [] Order #: [id number]: 1 FUTURE MARY ANNE PT ED WINDOWS CONSULTANT [] Order #: [id number]: 1 FUTURE MARY ANNE PT ED WINDOWS CONSULTANT [] Order #: [id number]: 1 FUTURE MARY ANNE PT ED WINDOWS CONSULTANT [] Order #: [id number]. #:[id number]: 1 MARY ANNE PT ED ANESTHESIA [[id number]] Order #: [id number]. #:[id number]: 1 MARY ANNE PT ED WINDOWS CONSULTANT [] Order #: [id number]. #:[id number]: 1 MARY ANNE WHAT TO EXPECT DURING YOUR HOSPITAL STAY [] Order #: [id number]. #:[id number]: 1 MARY ANNE PT ED WINDOWS CONSULTANT [] Order #: [id number]. #:[id number]: 1 MARY ANNE PT ED WINDOWS CONSULTANT [] Order #: [id number]. #:[id number]: 1 MARY ANNE PT ED WINDOWS CONSULTANT [] Order #: [id number]. #:[id number]: 1 Prescriptions as of 02/23/2018 Sig: LEVOTHYROXINE 50 MCG TABLET Take 50 mcg by mouth daily be* ORAL Take by mouth once daily. ZOMIG ORAL Take 1 tablet by mouth as nee* Problem List As Of Date 02/23/2018 Noted Resolved History of thyroid disease [Z86.39] INVALID FOR* More... ASCUS favor benign [KCT0598] INVALID FOR* resulting from assisted reproductive *INVALID FOR* More... History of anxiety [Z86.59] INVALID FOR* More... Patient travels [Z78.9] INVALID FOR* More... Other instructions from your clinician: SEQUENTIAL SCREENINGS [facility] offers sequential screenings for women who are interested in screenings for chromosomal abnormalities and certain defects during a . The sequential screen combines ultrasound and blood tests to determine the risk of chromosomal abnormalities, including Down's Syndrome (Trisomy 21) and Trisomy 18, as well as open neural tube defects including spina bifida. Ultrasound examination is performed between 11 weeks and 13 weeks gestational age. Blood tests are drawn after the ultrasound and again later in the between 15 and 21 weeks gestational age. Please let your physician know if you are interested in this testing. It will require an appointment with our military administrative technician. This is not an ultrasound performed by a physician in our office during a routine visit. SIGNS AND SYMPTOMS OF LABOR 1. Contractions every 10 minutes or more often 2. Clear, pink, or brownish fluid (water) leaking from vagina 3. Feeling that baby is pushing down, pressure 4. Low, dull backache 5. Cramps that feel like a period 6. Cramps with or without diarrhea If you notice any of the above symptoms, contact our office at [phone] and ask to speak with a nurse. After hours, you can call doctors registry at [phone] OR call [facility] at [phone] and ask to have the doctor press set up person paged. If you consider this an emergency, dial 9-- or go to your nearest emergency department. Cord-Blood Banking Up until recently, the umbilical cord--along with the blood that remained in it after a baby was born and the cord cut--was simply discarded by the hospital. Then, in the late 1980s, researchers discovered that cord blood possessed unusual properties that made it useful in the treatment of patients with some cancers and other illnesses. While the actual process of collecting cord blood is straightforward, many parents are not even aware that this option now exists, much less familiar with all the issues involved. The case for saving your baby's cord blood The blood running back and forth between your baby and the placenta is full of immature cells called stem cells. Unlike embryonic stem cells, which have the ability to develop into any type of body cell, cord-blood stem cells already are locked into a certain, vital function: making all the different components of the blood, such as platelets, white blood cells, and red blood cells-serving, in effect, like bone marrow. When transfused into a patient whose own blood cells have faulty genetic coding or have been destroyed by chemotherapy or other cancer treatments, the cord-blood cells can implant themselves in the bone marrow and generate legions of new, healthy cells. These days, cord-blood transplants most commonly are used in cancer patients when a donor can't be found for a bone-marrow transplant. The treatment is particularly effective in young patients- the [facility] Cord Blood [facility] reports a 70 percent success rate in children, but only 20 to 40 percent in adults. Researchers envision improving those odds and see many future applications as well, such as curing sickle cell disease and other blood-related genetic illnesses. So there is a possibility that your child, or someone else, may need these super-healthy and versatile cells one day. The drawbacks Aside from not knowing about this medical option, the main reason most people do not save their baby's stem cells is cost. In a private blood bank, the initial costs run from $275 to $1,500. Most also charge a yearly storage fee of $50 to $95. The advantage of using a private bank is that your sample is saved for only you to use. An alternative to private banking Public cord-blood doll are an alternative. These cost no money to use, but your sample is not specifically saved for you. Another person with a more immediate need may use it. If the time should come that you need stem cells, yours may still be available, or you may use donations from other people without charge. You also can direct your sample to go to a relative with an immediate need if the blood type matches. Anyone else needing to use stem cells from a public bank who has not been a donor must pay for it, sometimes tens of thousands of dollars. Will my family benefit from saving stem cells? Right now, situations in which stem cells would be helpful are quite rare. As mentioned earlier, stem-cell transplants are most commonly used for rare genetic conditions and for some types of cancer, including leukemia and lymphoma. And even with these present uses, many questions remain. In cancer treatment, for example, some researchers are concerned about the wisdom of transplanting back into the child the same cells that already showed a propensity to become malignant. Doctors also aren't sure if the number of cells taken at the time of would be enough to treat a full-grown 16-year-old. It is also not completely clear how active the cells would be after years of being stored. The treatment is so new and rare, we just don't have the data yet to resolve these important issues. What do the experts say? The [employer] encourages philanthropic blood banking in public doll, but only for families with a current or potential need. Blood-bank proponents encourage any kind of banking, pointing out that research is getting closer and closer to many diverse, live-saving applications. How do I decide? Each family must weigh the pros and cons for themselves. Some families say that any cost is worth their peace of mind. Others say that in the face of uncertainty about the effectiveness of the treatment, they will use their resources elsewhere. Some choose the middle ground of donating publicly, knowing that their sample might benefit another family, if not themselves. For more information, ask your doctor or nurse, and be sure to check out our article on the technical aspects of cord-blood banking. Technical Aspects of Cord-Blood Banking If you are interested in storing your baby's umbilical- cord blood because of its possible use in emerging medical treatments, you must make arrangements with a blood bank before your child is born. The collection procedure is quite simple: After delivery of the baby, the umbilical cord is clamped and cut in the usual way. The blood that remains in the umbilical-cord vessels is then collected in sterile containers. The blood may be removed from the cord with a large needle or allowed to flow freely, depending on the company's collection system. The containers may look like large test tubes or like the plastic bags used in a blood bank. It does not cause the mother or the baby any pain to collect the blood, and no blood is taken that the baby needs at the moment. The nurse, chassis engineer, or physician will then label the samples, check them over with you, and package them for a special pickup arranged with a commercial carrier. When the blood arrives at the blood- bank facility, it is processed and the parents are notified. It is then kept in an advanced storage system for years. How do I know that my sample is safe? Power outages and bankruptcies potentially could threaten any organization, but so far none have been reported. It is to be hoped that the scientists in these doll would arrange for safe transfer to another facility if the need arose. YOU MUST MAKE ARRANGEMENTS AHEAD OF TIME! Public cord-blood doll--DONATION: [employer] [phone] [facility] Placental Blood Program, [facility] Umbilical Cord Blood Bank, Private cord-blood doll--SAVING FOR YOUR OWN USE: [employer], (I think this is the least expensive) [employer] [phone] [employer], [phone] [employer] [facility] Cord Blood [facility], [phone] 700-CORD Cells, [phone] [place] [facility], Cord Blood Registry, ([phone]) CORDBLOOD [employer], An Internet search may provide you with additional listings. Disposition: Return for New OB with Dr Yanes. Follow-up and Disposition History Recorded Encounter Status:Closed by ALEXIA MARTINEZ RN on 02/23/18 HCG TITER QUANT., Collected: 01/06/2018 Status: F Source: FRANCIS SERUM 10:40 AM [facility] REPOSITORY Order Comment: FAX COPY ALSO TO TYPE CODE TESTS RESULT OUT OF RANGE REFERENCE UNITS LAB L700.8000 <9 non-preg mIU/mL High HCG 77073 QUANT. Performed By: #### L700.8000 #### [facility] [address] [place], [address] HCG TITER QUANT., Collected: 12/28/2017 Status: F Source: FRANCIS SERUM 7:16 AM [facility] REPOSITORY TYPE CODE TESTS RESULT OUT OF RANGE REFERENCE UNITS LAB L700.8000 <9 non-preg mIU/mL High HCG 1350 QUANT. Performed By: #### L700.8000 #### [facility] [address] [place], [address] THYROID STIM HORMONE Collected: 12/28/2017 Status: F Source: PORFIRIO (TSH) 7:16 AM [facility] REPOSITORY Order Comment: PLEASE ADD TSH TO HCG TUBE S2 TSH WAS MISSED YESTERDAY! TYPE CODE TESTS RESULT OUT OF RANGE REFERENCE UNITS LAB L501.9520 0.358-3.74 uIU/mL Normal TSH 3.71 Performed By: #### L501.9520 #### [facility] [address] [place], [address] HCG TITER QUANT., Collected: 12/26/2017 Status: F Source: PORFIRIO SERUM 7:12 AM [facility] REPOSITORY TYPE CODE TESTS RESULT OUT OF RANGE REFERENCE UNITS LAB L700.8000 <9 non-preg mIU/mL High HCG 569 QUANT. Performed By: #### L700.8000 #### [facility] [address] [place], [address] ALLERGIES ALLERGIES DATE TYPE / CODE NAME / CODE REACTION SEVERITY SOURCE 09/17/2018 Drug No Known Unknown [facility] Allergy/416 Allergies/F28897 [facility] 291789(SNOM 0388(RXNORM) Repository ED CT) Drug NO KNOWN [facility] Class/28520 ALLERGIES Main [place] 1003(SNOMED Repository CT) ENCOUNTERS ENCOUNTERS ADMIT/DISCHARGE ACCOUNT ADMITTING ENCOUNTER LOCATION SOURCE NUMBER CLASS 10/25/2018/10/25/19 [id number] Ambulatory [place] 19 [facility] Main [place] Repository 09/22/2018/09/22/20 [id number] Ambulatory [place] 18 [facility] [place] Repository 09/17/2018/09/19/20 [id number] [facility] Inpatient [place] 18 osh, Enrique Encounter [facility] ing:WPRoom: Repository [id number]: 1 09/10/2018/09/14/20 [id number] [place], Inpatient [place] 18 [place] Encounter [facility] ing:WPRoom: Repository [id number]: 1 09/08/2018/09/11/20 [id number] Ambulatory [address] [place] Repository 09/06/2018/09/07/20 [id number] Ambulatory [address] Repository 08/29/2018/08/30/20 [id number] Ambulatory [address] Repository 08/22/2018/08/23/20 [id number] Ambulatory [address] Repository 08/16/2018/08/17/20 [id number] Ambulatory [address] Repository 08/09/2018/08/11/20 [id number] Ambulatory [address] Repository 08/07/2018/08/07/20 [id number] Ambulatory BMSBuilding:B [place] 18 [facility] Repository 07/28/2018/07/31/20 [id number] Ambulatory [address] Repository 07/24/2018/07/24/20 [id number] Ambulatory BMSBuilding:B [place] 18 [facility] Repository 07/12/2018/07/12/20 [id number] Ambulatory [address] Repository 07/12/2018/07/13/20 [id number] Ambulatory [address] Repository 07/11/2018/07/11/20 [id number] Ambulatory BMSBuilding:B [place] 18 MS.[facility] Repository 07/02/2018/07/02/20 [id number] Ambulatory [place] 18 [facility] ing:WPOUTRoom Repository : [id number] 06/26/2018/06/26/20 [id number] Ambulatory [address] Repository 06/20/2018/06/20/20 [id number] Ambulatory BMSBuilding:B [place] 18 MS.[facility] Repository 06/16/2018/06/16/20 [id number] Ambulatory [address] Repository 06/16/2018/06/19/20 [id number] Ambulatory [address] Repository 05/23/2018/05/23/20 [id number] Ambulatory BMSBuilding:B [place] 18 MS.[facility] Repository 05/22/2018/05/23/20 [id number] Ambulatory [address] Repository 05/17/2018/05/17/20 [id number] Ambulatory BMSBuilding:B [place] 18 MS.[facility] Repository 05/11/2018/05/11/20 [id number] Ambulatory [address] Repository 05/10/2018/05/10/20 [id number] Ambulatory BMSBuilding:B [place] 18 MS.[facility] Repository 05/08/2018/05/08/20 [id number] Ambulatory BMSBuilding:B [place] 18 MS.[facility] Repository 05/04/2018/05/04/20 [id number] Ambulatory BMSBuilding:B [place] 18 MS.[facility] Repository 05/02/2018/05/02/20 [id number] Ambulatory BMSBuilding:B [place] 18 MS.[facility] Repository 04/27/2018/04/27/20 [id number] Ambulatory BMSBuilding:B [place] 18 MS.[facility] Repository 04/18/2018/04/19/20 [id number] Ambulatory [address] Repository 04/18/2018/04/24/20 [id number] Ambulatory [address] Repository 03/21/2018/03/21/20 [id number] Ambulatory [address] Repository 02/23/2018/02/24/20 [id number] Ambulatory [address] Repository 02/23/2018/02/24/20 [id number] Ambulatory [address] Repository 01/06/2018 [id number] Ambulatory [facility] Hospital ing:LAB Repository 12/28/2017 [id number] Ambulatory [facility] ing:LAB Repository 12/26/2017 [id number] Ambulatory [facility] Hospital ing:LAB Repository PAYERS PAYERS ENCOUNTER GUARANTOR PAYER SUBSCRIBER SOURCE 09/17/2018 CRISTY Izquierdo Primary CRISTY [id number] Insurance:Afshin BARRETO: Felipe MENG [place]: [id number] [id number] Repository [address]Udy: ([phone]) Date:[id number] [phone] ([facility] [id number], [place] [address]ZB: 09/17/2018 Secondary NOT GIVENUNK [place] Insurance:SELF PAY [facility] Number: Effective Repository Date:2018-09-17 09/10/2018 CRISTY P Primary CRISTY [place] [id number] [address] Insurance:CIGNAPolicy MATTSONDOB: [facility] Number: [id number], [place] [id number] Repository [address]Wne: ([phone]) Date:2648-23-06JE [phone] () [id number], [place] [address]UB: 09/10/2018 Secondary NOT GIVENUNK [place] Insurance:SELF PAY [facility] Number: Effective Repository Date:2018-06-22 08/07/2018 CRISTY P Primary CRISTY [place] [id number] Insurance:AMER MATTSONDOB: [facility] [id number], [place] NETPolicy Number: Repository [id number]: (594) [id number] [phone] () Date:2018-07-24 08/07/2018 Secondary NOT GIVENUNK [place] Insurance:SELF PAY [facility] Number: Effective Repository Date:2018-08-07 07/24/2018 CRISTY P Primary CRISTY P [place] [id number] [address] Insurance:AMER MATTSONDOB: [facility] [id number], [place] NETPolicy Number: Repository [id number]: (269) [id number] [phone] () Date:2018-07-11 07/24/2018 Secondary NOT GIVENUNK [place] Insurance:SELF PAY [facility] Number: Effective Repository Date:2018-07-24 07/11/2018 CRISTY P Primary CRISTY P [place] [id number] E Insurance:AMER MATTSONDOB: [facility] [id number], [place] NETPolicy Number: Repository [id number]: (323) [id number] [phone] () Date:2018-06-20 07/11/2018 Secondary NOT GIVENUNK [place] Insurance:SELF PAY [facility] Number: Effective Repository Date:2018-07-11 07/02/2018 CRISTY P Primary CRISTY P [place] [id number] E Insurance:CIGNAPolicy MATTSONDOB: [facility] Number: [id number], [place] [id number] Repository [address]Idf: ([phone]) Date:4761-18-35RD [phone] () [id number], [place] [address]IL: 07/02/2018 Secondary NOT GIVENUNK [place] Insurance:SELF PAY [facility] Number: Effective Repository Date:2018-07-02 06/20/2018 CRISTY P Primary CRISTY P [place] [id number] E Insurance:AMER MATTSONDOB: [facility] [id number], [place] NETPolicy Number: Repository [id number]: (269) [id number] [phone] () Date:2018-05-23 06/20/2018 Secondary NOT GIVENUNK [place] Insurance:SELF PAY [facility] Number: Effective Repository Date:2018-06-20 05/23/2018 CRISTY P Primary CRISTY P [place] [id number] E Insurance:AMER MATTSONDOB: [facility] [id number], [place] NETPolicy Number: Repository [id number]: (269) [id number] [phone] () Date:2018-05-17 05/23/2018 Secondary NOT GIVENUNK [place] Insurance:SELF PAY [facility] Number: Effective Repository Date:2018-05-23 05/17/2018 CRISTY P Primary CRISTY P [place] [id number] E Insurance:AMER MATTSONDOB: [facility] [id number], [place] NETPolicy Number: Repository 490[address]Uhi: (269) [id number] [phone] () Date:2018-05-10 05/17/2018 Secondary NOT GIVENUNK [place] Insurance:SELF PAY [facility] Effective Repository Date:2018-05-17 05/10/2018 CRISTY P Primary CRISTY [place] [id number] E Insurance:AMER MATTSONDOB: [facility] [id number] NETPolicy Number: Repository [id number]: (269) [id number] [phone] () Date:2018-04-20 05/10/2018 Secondary NOT GIVENUNK [place] Insurance:SELF PAY [facility] Number: Effective Repository Date:2018-05-10 05/08/2018 CRISTY P Primary CRISTY P [place] [id number] E Insurance:AMER MATTSONDOB: [facility] [id number] NETPolicy Number: Repository [id number]: (269) [id number] [phone] () Date:2018-04-20 05/08/2018 Secondary NOT GIVENUNK [place] Insurance:SELF PAY [facility] Number: Effective Repository Date:2018-05-08 05/04/2018 CRISTY P Primary CRISTY P [place] [id number] E Insurance:AMER MATTSONDOB: [facility] [id number] NETPolicy Number: Repository [id number]: (269 [id number] [phone] () Date:2018-04-20 05/04/2018 Secondary NOT GIVENUNK [place] Insurance:SELF PAY [facility] Number: Effective Repository Date:2018-05-04 05/02/2018 CRISTY P Primary CRISTY P [place] [id number] E Insurance:AMER MATTSONDOB: [facility] [id number] NETPolicy Number: Repository [id number]: (269) [id number] [phone] () Date:2018-04-20 05/02/2018 Secondary NOT GIVENUNK [place] Insurance:SELF PAY [facility] Number: Effective Repository Date:2018-05-02 04/27/2018 CRISTY P Primary CRISTY P [place] [id number] E Insurance:AMER MATTSONDOB: [id number] Number: Repository [id number]: (269) [id number] [phone] () Date:2018-04-20 04/27/2018 Secondary NOT GIVENUNK [place] Insurance:SELF PAY [facility] Number: Effective Repository Date:2018-04-27 01/06/2018 Cristy P Primary Cristy P [place] [id number] Insurance:CIGNAPolicy MattsonDOB: [facility] Number: [id number], [place] [id number] Repository [address]Fef: (269) Date:4755-70-22WC [phone] () [id number], [place] [address]TX: 01/06/2018 Secondary NOT GIVENUNK [place] Insurance:SELF PAY [facility] Number: Effective Repository Date:2018-01-06 12/28/2017 Cristy P Primary Cristy P [place] [id number] Insurance:CIGNAPolicy MattsonDOB: [facility] Number: [id number], [place] [id number] Repository [address]Hza: (269) Date:8407-82-47XF [phone] () [id number], [place] [address]ZL: 12/28/2017 Secondary NOT GIVENUNK [place] Insurance:SELF PAY [facility] Number: Effective Repository Date:2017-12-28 12/26/2017 Cristy P Primary Cristy P [place] [id number] Insurance:CIGNAPolicy MattsonDOB: [facility] Number: [id number], [place] [id number] Repository [address]Jno: (399) Date:9855-26-74QV [phone] () [id number], [place] [address]CZ: 12/26/2017 Secondary NOT GIVENUNK [place] Insurance:SELF PAY [facility] Effective Repository Date:2017-12-26
== END 2018-09-19 12:10 | disposition home or self-care (01) | DRG 776 ==
LOC: WPOUT 09-19 07:31
PROVIDERS: Admitting Provider Obstetrics & Gynecology; Family Provider Family Medicine; PCP Family Medicine; Visit Provider Obstetrics & Gynecology
DX: O14.95 Unspecified pre-eclampsia, complicating the puerperium (principal)
CPT/HCPCS: 82565; 84450; 84460; 84550; 85027; 85610; 85730; 99218; J7120; A4216; G0378; J2405

== ENCOUNTER → 2019-01-01 11:36 | Outpatient (CLI) | payer OTHER, SELFPAY ==
[2018-09-17 21:48] VITALS: BMI 27.4
[2019-01-01 14:15] LABS: T4 Total, Thyroxin 11.2 ug/dL (4.8-13.9); Thyroid Stim Hormone (TSH) 0.04 uIU/mL (0.358-3.74)
== END ==
PROVIDERS: Family Provider Family Medicine; PCP Family Medicine; Visit Provider Family Medicine
DX: E03.9 Hypothyroidism, unspecified (principal)
CPT/HCPCS: 36415; 84436; 84443

== ENCOUNTER → 2019-06-22 15:36 | Outpatient (CLI) | payer OTHER, SELFPAY ==
[2018-09-17 21:48] VITALS: BMI 27.4
[2019-06-22 17:34] LABS: T4 Free Direct 0.82 ng/dL (0.76-1.46); Thyroid Stim Hormone (TSH) 4.07 uIU/mL (0.358-3.74)
== END ==
PROVIDERS: Family Provider Family Medicine; PCP Family Medicine; Referring Provider Family Medicine; Visit Provider Family Medicine
DX: R79.89 Other specified abnormal findings of blood chemistry (principal)
CPT/HCPCS: 36415; 84439; 84443

== ENCOUNTER → 2020-06-02 | Outpatient (CLI) | payer OTHER, SELFPAY ==
[2018-09-17 21:48] VITALS: BMI 27.4
== END | disposition home or self-care (01) ==
PROVIDERS: PCP Family Medicine; Referring Provider Family Medicine; Visit Provider Family Medicine
DX: B34.9 Viral infection, unspecified (principal)
CPT/HCPCS: 87635; U0003

== ENCOUNTER → 2020-08-22 13:37 | Outpatient (CLI) | payer OTHER, SELFPAY ==
[2018-09-17 21:48] VITALS: BMI 27.4
== END ==
PROVIDERS: PCP Family Medicine; Visit Provider Family Medicine
DX: Z20.828 Contact with and (suspected) exposure to other viral communicable diseases (principal)
CPT/HCPCS: 87635; U0003

== ENCOUNTER → 2020-09-13 | Outpatient (CLI) | payer OTHER, SELFPAY ==
[2020-09-13 11:04] VITALS: BMI 21.4
== END | disposition home or self-care (01) ==
PROVIDERS: PCP Family Medicine; Referring Provider Physician Assistant Medical; Visit Provider Physician Assistant Medical
DX: U07.1 COVID-19 (principal)
CPT/HCPCS: 87635; U0003

== ENCOUNTER → 2021-06-22 | Outpatient (CLI) | payer OTHER, SELFPAY | END | disposition home or self-care (01) | LOC: LABSPEC 15:06 | PROVIDERS: PCP Internal Medicine; Referring Provider Internal Medicine; Visit Provider Internal Medicine | DX: R05 Cough (principal) | CPT/HCPCS: 87635; U0005; U0003 ==

== ENCOUNTER 2022-06-23 22:10 | Observation (INO) | payer OTHER, SELFPAY ==
[2022-06-23 22:11] VITALS: BP 201/114; PULSE 56; RESP 16; TEMP 36.4; O2SAT 98; BMI 22.4
[2022-06-23 22:13] VITALS: BP 201/114; PULSE 56; RESP 16; TEMP 36.4; O2SAT 98
--- NOTE | 2022-06-23 22:30 | EDS_ITS ---
HPI HPI - GI History of Present Illness Chief Complaint: Abd Pain Detail of Chief Complaint: Abdominal pain Informant: patient Abdominal Pain/Flank Pain Current Severity: 05/12 Narrative Narrative: Patient presents the emergency department complaint of abdominal pain that she has had off and on for several days. Patient states the pain tonight more severe and continuous. She rates the pain an 8 out of 10. Patient states the pain is diffuse to the upper abdomen she feels distended. She is not had pain like this before. Patient currently has COVID-19 and was diagnosed yesterday however she has had symptoms for 4 days. Patient has been taking some Pepto but not getting much relief for her abdominal pain. Patient does not have periods as she has continuous control. She has had prior C-sections. She denies fevers. She denies diarrhea. She denies blood in her stool or black tarry stool. PFSH [facility] Medical History (Updated 06/24/22 @ 03:[address] Mary Jane Briones, DO) Hyperthyroidism Home Medications escitalopram oxalate 10 mg tablet 10 mg PO DAILY 06/24/22 [History Last Taken Unknown] norethindrone 1 mg-ethinyl estradiol 20 mcg (21)-iron 75 mg (7) tablet 1 tab PO DAILY 06/24/22 [History Last Taken Unknown] Allergy/AdvReac Type Severity Reaction Status Date / Time No Known Allergies Allergy Verified 06/23/22 22:14 Family History Other CVA (cerebral vascular accident) Heart disease High cholesterol Hypertension Social History (Updated 09/13/20 @ 11:23 by Rowena NORIEGA, PA) Smoking Status: Never smoker alcohol intake: never substance use type: does not use what type of physical activity do you participate in: other details: crossfit frequency: 3-4 times per week ROS ROS ED Review of Systems ROS Unobtainable: other Constitutional Constitutional ED: Reports lethargy; Denies chills, fever(s), sweats or weight loss Eyes Eyes: Denies blurry vision, change in vision or diplopia ENT ENT ED: Denies rhinorrhea or sore throat Cardiovascular Cardiovascular: Reports racing heartbeat; Denies chest pain, orthopnea or palpitations Respiratory/Chest Respiratory/Chest: Reports cough and dyspnea on exertion; Denies dyspnea, orthopnea or sputum Gastrointestinal Gastrointestinal: Reports abdominal pain and nausea; Denies diarrhea or vomiting Genitourinary Genitourinary ED: Denies dysuria, hematuria or urinary frequency Musculoskeletal Musculoskeletal: Denies arthralgias, back pain, myalgias or neck pain Integumentary Denies abscess, Abrasions or rash Neurologic Neurologic: Denies headache(s) or weakness Psychiatric Psychiatric: Denies anxiety, depression or suicidal thoughts Endocrine Endocrinology: Denies polydipsia, polyphagia or polyuria Hematologic/Lymphatic Hematologic/Lymphatic: Denies easy bleeding, easy bruising or lymphadenopathy Allergic/Immunologic Allergic/Immunologic ED: Denies mouth swelling, tongue swelling or urticaria EXAM Physical Exam Const Vital Signs: 06/23/22 22:11 06/23/22 22:13 06/24/22 01:13 Temperature 97.5 F L 97.5 F L 98.1 F Temperature Source Temporal Temporal Temporal Pulse Rate 56 L 56 L 64 Respiratory Rate 16 16 16 Blood Pressure 201/114 H 201/114 H 134/90 H Blood Pressure Mean 143 143 104 Pulse Ox 98 98 98 Oxygen Delivery Method Room Air Room Air Room Air Positive well nourished and well developed General Appearance ED: well developed and NAD HEENT Reports TM's clear and moist mucous membranes normocephalic and atraumatic; Negative for trauma or tenderness Tympanic Membrane ED: Yes TM's clear Eyes PERRL and EOMs intact bilaterally General Eye ED: Negative for pale conjunctiva or scleral icterus Neck no lymphadenopathy, supple and no JVD General: Negative for tenderness Chest Wall inspection of chest normal and palpation of chest normal Chest: Negative for tenderness Resp normal respiratory effort and clear to auscultation bilaterally Effort and Inspection: Negative for respiratory distress or pain with movement Auscultation: Negative for rhonchi, wheezes or diminished lung sounds Cardio regular rate, regular rhythm, S1 normal heart sound, S2 normal heart sound and no murmurs Peripheral Pulses: pulses 2+ throughout GI normal to inspection, nondistended, normoactive bowel sounds, soft to palpation, non-distended and no masses GI Narrative: Patient with tenderness diffusely about the upper abdomen in the epigastric region as well as the right upper quadrant left upper quadrant. There are some mild guarding. No rebound, rigidity, or peritoneal signs. Back/Spine no CVA tenderness and no thoracic nor lumbar tenderness Extremity normal to inspection General Extremety ED: Negative for edema General Extremity: Negative for edema Neuro oriented x3, CN's II-XII intact bilaterally, no sensory deficits noted and gait normal Sensorium / Orientation: awake, alert, oriented to person, oriented to place and oriented to time Motor Exam: strength 5/5 throughout and strength abnormal Psych mental status grossly normal Skin no rashes or lesions noted and no wounds MDM MDM MDM Narrative Medical decision making narrative: IV line established on arrival. Patient was medicated with morphine and Zofran and she had good pain relief with that. CT scan of the abdomen pelvis showed cholelithiasis and thickening of the small bowel. I discussed case initially with general surgeon on-call who recommended we obtain a gallbladder ultrasound. Gallbladder ultrasound did show a markedly distended gallbladder with gallstones and a thickened gallbladder wall as well as a dilated common bile duct. It was felt this might represent sequela of cholecystitis. Case was once again discussed with general surgeon on-call who will admit patient and I was asked to start patient on Zosyn IV. Lab Data Attestation: I reviewed the patient's lab results. Labs: Laboratory Results - last 24 hr 06/23/22 06/23/22 06/23/22 22:46 22:46 22:46 WBC 6.6 RBC 4.36 Hgb 13.5 Hct 39.3 MCV 90.1 MCH 31.0 MCHC 34.4 RDW Std Deviation 41.9 RDW Coeff of Ronit 12.7 Plt Count 262 MPV 9.3 Immature Gran % (Auto) 0.200 Neut % (Auto) 44.7 L Lymph % (Auto) 32.1 [place] % (Auto) 18.0 H Eos % (Auto) 4.7 Baso % (Auto) 0.3 Absolute Neuts (auto) 2.9 Absolute Lymphs (auto) 2.10 Nucleated RBC % 0 Sodium 140 Potassium 3.7 Chloride 105 Carbon Dioxide 27.0 Anion Gap 8 BUN 19 H Creatinine 0.94 Estim Creat Clear Calc 74.45 Est GFR (MDRD) Af Amer 86 Est GFR (MDRD) Non-Af 71 BUN/Creatinine Ratio 20.1 H Glucose 113 H Lactic Acid 0.9 Calcium 8.4 L Total Bilirubin 0.20 AST 16 ALT 25 Alkaline Phosphatase 48 Total Protein 7.4 Albumin 3.3 Globulin 4.1 Albumin/Globulin Ratio 0.8 L Lipase 367 Serum , Qual Urine Color Urine Clarity Urine pH Ur Specific [place] Urine Protein Urine Glucose (UA) Urine Ketones Urine Occult Blood Urine Nitrite Urine Bilirubin Urine Urobilinogen Ur Leukocyte Esterase Urine RBC Urine WBC Ur Squamous Epith Cells Urine Bacteria Urine Mucus 06/23/22 06/23/22 22:46 23:31 WBC RBC Hgb Hct MCV MCH MCHC RDW Std Deviation RDW Coeff of Ronit Plt Count MPV Immature Gran % (Auto) Neut % (Auto) Lymph % (Auto) [place] % (Auto) Eos % (Auto) Baso % (Auto) Absolute Neuts (auto) Absolute Lymphs (auto) Nucleated RBC % Sodium Potassium Chloride Carbon Dioxide Anion Gap BUN Creatinine Estim Creat Clear Calc Est GFR (MDRD) Af Amer Est GFR (MDRD) Non-Af BUN/Creatinine Ratio Glucose Lactic Acid Calcium Total Bilirubin AST ALT Alkaline Phosphatase Total Protein Albumin Globulin Albumin/Globulin Ratio Lipase Serum , Qual NEGATIVE Urine Color Yellow Urine Clarity Clear Urine pH 6.5 Ur Specific [place] 1.015 Urine Protein Negative Urine Glucose (UA) Normal Urine Ketones Negative Urine Occult Blood 50 H Urine Nitrite Negative Urine Bilirubin Negative Urine Urobilinogen Normal Ur Leukocyte Esterase Negative Urine RBC 0 SEEN Urine WBC 0 SEEN Ur Squamous Epith Cells 0 SEEN Urine Bacteria 0 SEEN Urine Mucus 0 SEEN Radiography Diagnostic Testing: Clinical Impression(s) from Imaging Studies Gallbladder Ultrasound 06/24/22 01:23 IMPRESSION: 1. Very distended gallbladder with cholelithiasis and mild thickening of gallbladder wall suggests possible sequela of cholecystitis. 2. Dilated common bile duct. Electronically Signed: Nasima Hightower MD at 2:46 EDT Reading Location ID and State: [facility] / [place] , Service support , Abdomen/Pelvis CT 06/24/22 22:32 IMPRESSION: 1. Periportal edema may be secondary to overhydration or hepatitis. 2. Findings suggest possible acute infectious or inflammatory neuritis. 3. Cholelithiasis without definite evidence for acute cholecystitis. 4. Hepatomegaly. Electronically Signed: Nasima Hightower MD at 0:56 EDT , ADDENDUM: 06/24/22 0253 IMPRESSION: 1. Periportal edema may be secondary to overhydration or hepatitis. 2. Findings suggest possible acute infectious or inflammatory enteritis. 3. Cholelithiasis without definite evidence for acute cholecystitis. 4. Hepatomegaly. Electronically Signed: Nasima Hightower MD at 2:46 EDT Reading Location ID and State: [facility] / [place] , Service support , Discharge Plan Triage Chief Complaint: Abd Pain ED Provider: Mary Jane Briones Dx/Rx/DC Orders Clinical Impression: Abdominal pain, Cholelithiasis, Biliary colic Prescriptions: No Action norethindrone-e.estradiol-iron 1 mg-20 mcg (21)/75 mg (7) tablet 1 tab PO DAILY Label Comments: take 1 tablet by mouth once daily CONTINUOUSLY escitalopram oxalate 10 mg tablet 10 mg PO DAILY Label Comments: take 1 tablet by mouth once daily Primary Care Provider: Kizzy Parker Referrals: Kizzy Parker MD [Primary Care Provider] - Disposition Disposition: Acute Care Hospital [facility]
[2022-06-23] MEDS: Ondansetron 4 MG/2 ML Vial IV (22:44)
[2022-06-23] MEDS: 0.9% Normal Saline 1,000 ML 125 ML IV (22:44)
[2022-06-23] MEDS: Morphine 4 MG/ML Syringe IV (22:44)
[2022-06-23 22:55] LABS: Absolute Neutrophil Count 2.9 X10^3/uL (2.0-7.7); Basophil# 0.02 X10^3/uL; Basophil% 0.3 % (0-1); Eosinophil# 0.31 X10^3/uL; Eosinophils% 4.7 % (0-5); Hematocrit 39.3 % (37-47); Hemoglobin 13.5 g/dL (12.0-15.0); Lymphocyte % 32.1 % (19-41); Mean Corp Hgb Conc 34.4 g/dL (32-36); Mean Corpuscular Volume 90.1 fL (81-99); Mean Platelet Vol. 9.3 fl (6.2-12.0); Monocyte# 1.18 X10^3/uL; NRBC Flagged by Analyzer 0 % (0-5); Neutrophil # 2.93 X10^3/uL (2.7-7.7); Neutrophil % 44.7 % (47-70); Platelet Count 262 K/mm3 (150-450); RBC Distribution Width CV 12.7 % (11.6-14.6); RBC Distribution Width SD 41.9 fl (35.1-43.9); Red Blood Count 4.36 M/mm3 (4.2-5.4); White Blood Count 6.6 K/mm3 (4.4-11.0)
[2022-06-23 23:05] LABS: Internal QC Validated? YES +Cl - CLEAR BKGD; Pregnancy, Serum, hCG Quali. NEGATIVE Negative
[2022-06-23 23:12] LABS: ALB/GLOB Ratio 0.8 RATIO (0.9-2.4); AST(SGOT) 16 U/L (15-37); Alanine Aminotransfer ALT/SGPT 25 U/L (13-56); Albumin, Serum 3.3 g/dL (3.2-5.0); Alkaline Phosphatase 48 U/L (45-117); Anion Gap 8 (5-15); BUN 19 mg/dL (7-18); BUN/Creat Ratio 20.1 RATIO (10-20); Calcium,Total 8.4 mg/dL (8.5-10.1); Chloride 105 mmol/L (98-107); Creatinine, Serum 0.94 mg/dL (0.55-1.02); EST Glomerular Filtration Rate 71 mL/min (>60); Est Glom Filt Rate - Afr Amer 86 mL/min (>60); Estimated Creatinine Clearance 74.45 ml/min; Globulin 4.1 g/dL (2.2-4.2); Glucose 113 mg/dL (74-106); Lipase 367 U/L (73-393); Potassium 3.7 mmol/L (3.5-5.1); Protein, Total 7.4 g/dL (6.4-8.2); Sodium Level 140 mmol/L (136-145)
[2022-06-23 23:18] LABS: Lactic Acid 0.9 mmol/L (0.4-1.9)
[2022-06-23 23:35] LABS: Bacteria 0 SEEN /hpf (None Seen); Mucous, Urine 0 SEEN /hpf (<or=2+); Red Blood Cells-Urine 0 SEEN /hpf (0-5); Squamous Epithelial Cells - UA 0 SEEN /hpf (5-10); White Blood Cells 0 SEEN /hpf (0-5)
[2022-06-23 23:36] LABS: Color, Urine Yellow (Yellow); Glucose, Dipstick Normal (Normal); Ketone-Dipstick Negative (Negative); Leukocyte Esterase-Dipstick Negative /ul (Negative); Nitrite-Dipstick Negative (Negative); Occult Blood-Urine 50 /ul (Negative); Protein-Dipstick Negative (Negative); Specific Gravity, Urine 1.015 (1.002-1.030); Urine Bilirubin Dipstick Negative (Negative); Urine Clarity Clear (Clear); Urine Urobilinogen Normal (Normal); Urine pH 6.5 (5.0 - 8.0)
[2022-06-24] VITALS (19 sets, daily range): BP systolic 108–169; BP diastolic 72–108; PULSE 51–72; RESP 16–20; TEMP 36.7–37.7; O2SAT 92–100; BMI 23.1
--- NOTE | 2022-06-24 01:23 | US_ITS ---
STUDY: ABDOMINAL ULTRASOUND - RIGHT UPPER QUADRANT REASON FOR VISIT: Female, 36 years old patient with abdominal pain and gallstones. Patient with abnormal CT today. TECHNIQUE: Ultrasound evaluation of the right upper quadrant was performed with real-time and static rascon-scale imaging. TECHNICAL QUALITY: Adequate. COMPARISON: CT of the abdomen and pelvis dated 06/24/2022. FINDINGS: Liver: The liver measures 14.2 cm. There is normal echogenicity of the liver. The bile ducts are within normal limits. There is hepatic color flow. The direction of portal flow is hepatopetal. There is no demonstrated mass lesion. Gallbladder: There is a markedly distended gallbladder. The gallbladder wall measures 4.0 mm. There is a negative sonographic Coley''s sign. There is no pericholecystic fluid. There are multiple echogenic structures within the gallbladder, consistent with multiple gallstones. Common Bile Duct (C.B.D.): The common bile duct measures 5.4 mm. Pancreas: Normal size of the head, body and tail of the pancreas. There is normal echogenicity of the pancreas. There is no demonstrated pancreatic mass or cyst. Right Kidney: Normal size of the right kidney. The right kidney measures 10.5 x 4.1 x 5.7 cm. Normal renal cortex. There is no demonstrated renal mass or cyst. There is no right hydronephrosis. US/Gallbladder IMPRESSION: 1. Very distended gallbladder with cholelithiasis and mild thickening of gallbladder wall suggests possible sequela of cholecystitis. 2. Dilated common bile duct. Electronically Signed: Nasima Hightower MD at 2:46 EDT ,
[2022-06-24] MEDS: 0.9% Normal Saline 1,000 ML 125 ML IV (04:11)
--- NOTE | 2022-06-24 05:49 | PCM.HP.STD ---
HPI - General General Date of Admission: 06/24/22 HPI Narrative BINTA MORATAYA, is a 36 F who presents to the ER due to epigastric/right upper quadrant abdominal pain which started yesterday and continued to get worse. Patient nausea and vomiting. Patient was also diagnosed with COVID on Tuesday symptoms started on Tuesday mild cough, runny nose and fever. Patient states in the past she has had what she thought was a severe stomach ache a couple of episodes this summer. CT abdomen pelvis showed a distended gallbladder and gallstones ultrasound also confirmed this with a mildly thickened wall. LFT's were in normal limits. [facility] Medical History (Updated 06/24/22 @ 06:[address] Bonnie Bush MD) Hypothyroidism Home Medications escitalopram oxalate 10 mg tablet 10 mg PO DAILY 06/24/22 [History Last Taken Unknown] norethindrone 1 mg-ethinyl estradiol 20 mcg (21)-iron 75 mg (7) tablet 1 tab PO DAILY 06/24/22 [History Last Taken Unknown] Allergy/AdvReac Type Severity Reaction Status Date / Time No Known Allergies Allergy Verified 06/23/22 22:14 Family History Other CVA (cerebral vascular accident) Heart disease High cholesterol Hypertension Surgical History S/P Social History (Updated 09/13/20 @ 11:23 by HARI Irene) Smoking Status: Never smoker alcohol intake: never substance use type: does not use what type of physical activity do you participate in: other details: crossfit frequency: 3-4 times per week Vital Signs Vital Signs Vital Signs: 06/23/22 22:11 06/23/22 22:13 06/24/22 01:13 Temperature 97.5 F L 97.5 F L 98.1 F Temperature Source Temporal Temporal Temporal Pulse Rate 56 L 56 L 64 Respiratory Rate 16 16 16 Blood Pressure 201/114 H 201/114 H 134/90 H Blood Pressure Mean 143 143 104 Blood Pressure Source Blood Pressure Position Blood Pressure Location Pulse Ox 98 98 98 Oxygen Delivery Method Room Air Room Air Room Air 06/24/22 03:48 06/24/22 03:51 06/24/22 04:00 Temperature 98.4 F 98.4 F 98.4 F Temperature Source Oral Oral Oral Pulse Rate 67 65 65 Respiratory Rate 17 18 18 Blood Pressure 136/91 H 147/93 H 147/93 H Blood Pressure Mean 106 111 111 Blood Pressure Source Monitor Blood Pressure Position Sitting Blood Pressure Location Right Arm Pulse Ox 97 99 99 Oxygen Delivery Method Room Air Room Air Room Air Weight Weight: 139 lb 2 oz Body Mass Index (BMI) 23.1 Physical Exam Const alert, oriented x3 and no apparent distress HEENT normocephalic and head/scalp atraumatic Resp normal respiratory effort Cardio regular rate GI soft to palpation; Negative for non-distended Palpation: tender RUQ (Mild); Negative for guarding Extremity no clubbing, cyanosis or edema Neuro CN's II-XII intact bilaterally Psych mental status grossly normal Results Lab / Micro Data Result Diagrams: 06/23/22 22:46 06/23/22 22:46 Labs: Laboratory Results - last 24 hr 06/23/22 22:46: WBC 6.6, RBC 4.36, Hgb 13.5, Hct 39.3, MCV 90.1, MCH 31.0, MCHC 34.4, RDW Std Deviation 41.9, RDW Coeff of Ronit 12.7, Plt Count 262, MPV 9.3, Immature Gran % (Auto) 0.200, Neut % (Auto) 44.7 L, Lymph % (Auto) 32.1, [place] % (Auto) 18.0 H, Eos % (Auto) 4.7, Baso % (Auto) 0.3, Absolute Neuts (auto) 2.9, Absolute Lymphs (auto) 2.10, Nucleated RBC % 0 06/23/22 22:46: Sodium 140, Potassium 3.7, Chloride 105, Carbon Dioxide 27.0, Anion Gap 8, BUN 19 H, Creatinine 0.94, Estim Creat Clear Calc 74.45, Est GFR (MDRD) Af Amer 86, Est GFR (MDRD) Non-Af 71, BUN/Creatinine Ratio 20.1 H, Glucose 113 H, Calcium 8.4 L, Total Bilirubin 0.20, AST 16, ALT 25, Alkaline Phosphatase 48, Total Protein 7.4, Albumin 3.3, Globulin 4.1, Albumin/Globulin Ratio 0.8 L, Lipase 367 06/23/22 22:46: Lactic Acid 0.9 06/23/22 22:46: Serum , Qual NEGATIVE 06/23/22 23:31: Urine Color Yellow, Urine Clarity Clear, Urine pH 6.5, Ur Specific [place] 1.015, Urine Protein Negative, Urine Glucose (UA) Normal, Urine Ketones Negative, Urine Occult Blood 50 H, Urine Nitrite Negative, Urine Bilirubin Negative, Urine Urobilinogen Normal, Ur Leukocyte Esterase Negative, Urine RBC 0 SEEN, Urine WBC 0 SEEN, Ur Squamous Epith Cells 0 SEEN, Urine Bacteria 0 SEEN, Urine Mucus 0 SEEN Radiology Impression Gallbladder Ultrasound 06/24/22 01:23 IMPRESSION: 1. Very distended gallbladder with cholelithiasis and mild thickening of gallbladder wall suggests possible sequela of cholecystitis. 2. Dilated common bile duct. Electronically Signed: Nasima Hightower MD at 2:46 EDT , Abdomen/Pelvis CT 06/24/22 22:32 IMPRESSION: 1. Periportal edema may be secondary to overhydration or hepatitis. 2. Findings suggest possible acute infectious or inflammatory neuritis. 3. Cholelithiasis without definite evidence for acute cholecystitis. 4. Hepatomegaly. Electronically Signed: Nasima Hightower MD at 0:56 EDT , ADDENDUM: 06/24/22 0253 IMPRESSION: 1. Periportal edema may be secondary to overhydration or hepatitis. 2. Findings suggest possible acute infectious or inflammatory enteritis. 3. Cholelithiasis without definite evidence for acute cholecystitis. 4. Hepatomegaly. Electronically Signed: Nasima Hightower MD at 2:46 EDT , Assessment & Plan Assessment/Plan (1) Acute cholecystitis: (2) Cholelithiasis: (3) COVID-19: PLAN: Plan Reviewed the anatomy with the patient and discussed the procedure: laparoscopic cholecystectomy with cholangiograms, possible open. Review risks including but not limited to bleeding, infection, hernia, bile leak, retained gallstones requiring another procedure ERCP- Endoscopic Retrograde Cholangiopancreatography, injury to another organ (bile ducts, common bile duct, small bowel, etc.) and conversion to an open procedure. She also discussed that due to having COVID patient could possibly have higher risk of respiratory issues however patient states her symptoms were mild. All questions were answered. Patient no further question this time. Bonnie Bush M.D. Pager: [phone] [facility] [address] [place] [address], [address] [place] [address] Office: [phone]
[2022-06-24 06:18] LABS: Basophil# 0.02 X10^3/uL; Basophil% 0.4 % (0-1); Eosinophil# 0.18 X10^3/uL; Eosinophils% 3.2 % (0-5); Hematocrit 38.3 % (37-47); Hemoglobin 13.2 g/dL (12.0-15.0); Lymphocyte % 28.8 % (19-41); Mean Corp Hgb Conc 34.5 g/dL (32-36); Mean Corpuscular Hgb 31.2 pg (27.0-32.0); Mean Corpuscular Volume 90.5 fL (81-99); Mean Platelet Vol. 9.3 fl (6.2-12.0); Monocyte# 0.77 X10^3/uL; Monocyte% 13.9 % (0-10); NRBC Flagged by Analyzer 0 % (0-5); Neutrophil # 2.97 X10^3/uL (2.7-7.7); Neutrophil % 53.5 % (47-70); Platelet Count 239 K/mm3 (150-450); RBC Distribution Width CV 12.8 % (11.6-14.6); Red Blood Count 4.23 M/mm3 (4.2-5.4); White Blood Count 5.6 K/mm3 (4.4-11.0)
[2022-06-24 06:47] LABS: AST(SGOT) 18 U/L (15-37); Alanine Aminotransfer ALT/SGPT 23 U/L (13-56); Alkaline Phosphatase 45 U/L (45-117); Anion Gap 4 (5-15); BUN 14 mg/dL (7-18); BUN/Creat Ratio 15.1 RATIO (10-20); Bilirubin, Direct 0.08 mg/dL (0.00-0.30); Calcium,Total 8.1 mg/dL (8.5-10.1); Chloride 108 mmol/L (98-107); Creatinine, Serum 0.92 mg/dL (0.55-1.02); EST Glomerular Filtration Rate 73 mL/min (>60); Est Glom Filt Rate - Afr Amer 88 mL/min (>60); Estimated Creatinine Clearance 76.07 ml/min; Globulin 3.7 g/dL (2.2-4.2); Glucose 91 mg/dL (74-106); Potassium 4.4 mmol/L (3.5-5.1); Protein, Total 6.7 g/dL (6.4-8.2); Sodium Level 140 mmol/L (136-145)
[2022-06-24] MEDS: Lactated Ringers 1,000 ML 15 ML IV (12:43)
--- NOTE | 2022-06-24 15:42 | OP.PCM_ITS ---
Report of Operation Date of Procedure: 06/24/22 Pre-Operative Diagnosis: Acute cholecystitis Post-Operative Diagnosis: Acute cholecystitis, hydrops of the gallbladder Surgery/Procedure Performed:: Laparoscopic cholecystectomy Surgeon: Bonnie Bush key holder: Gladys Hernandez Type of Anesthesia: General/Supplemental Anesthesiologist: Keegan Dick Special Medications: Zosyn 3.375 g IV every 8 hours for acute cholecystitis Specimen's removed: Gallbladder and stones Estimated Blood Loss (mL): 10 cc Description of Procedure: Indications: this is a 36 year-old female who developed abdominal pain/nausea/vomiting and on workup was found to have acute cholecystitis, cholelithiasis, with a normal common bile duct/LFTs, positive for COVID. Laparoscopic cholecystectomy was elected. Description procedure: The patient was placed on operating table in supine posi tion after appropriate COVID precautions taken for the OR room and staff. A timeout was completed verifying correct patient, procedure, site, position and special equipment prior to beginning procedure. General Anesthesia was induced. The abdomen was prepped and draped in usual sterile fashion. An incision was made in the natural skin line below the umbilicus. The fascia was elevated and incised. The peritoneum was elevated and incised. Entry into the peritoneum was confirmed visually and no bowel was noted in the vicinity of the incision. Hagen trocar was placed. The abdomen was insufflated with carbon dioxide to a pressure of 12-15 mmHg. Patient tolerated insufflation well. The laparoscope was then inserted and abdomen inspected. No injuries from initial trocar placement were noted. Additional trochars were then inserted in the following locations 5 mm trocar in the epigastrium and 2 more 5 mm trochars along the right costal margin. The abdomen was inspected no abnormalities were found. The table is placed in reverse Trendelenburg position with the right side up. The adhesions between the gallbladder and omentum were lysed sharply. The dome of the gallbladder was grasped with atraumatic grasper passed through the lateral port and retracted over the dome of the liver. Infundibulum was then grasped with atraumatic grasper through the midclavicular port and retracted to the right lower quadrant. This maneuver exposed Calot's triangle. The peritoneum overlying the gallbladder infundibulum was then incised and cystic duct and artery identified and circumferentially dissected. Attempted cholangiograms to Nicole and Ranfac catheter unable to have the Ranfac catheter pass easily and short cystic duct; however no stone was noted in the proximal cystic duct. Cholangiograms were aborted. the cystic duct and artery were then doubly clipped and divided close to the gallbladder. The gallbladder then dissected from its peritoneal attachments by electroca utery. Hemostasis was checked and the gallbladder and contained stones were removed using the endoscopic retrieval bag through the umbilical port. The gallbladder is passed off table as specimen. The gallbladder fossa was irrigated with saline and hemostasis obtained. There is no evidence of bleeding from the gallbladder fossa or cystic artery leakage of bile from the cystic duct stump. Secondary trochars removed under direct vision. No bleeding was noted the trocar sites. The laparoscope was withdrawn and umbilical trocar removed. The abdomen was allowed to collapse. The fascia of the 12 mm trocar was closed with a [id number] 0 Vicryl suture. The skin was closed with sutures of 4-0 Monocryl and Steri-Strips. The patient was extubated. The patient tolerated procedure well and was taken to the postanesthesia care unit in stable condition. Complications None
--- NOTE | 2022-06-24 15:45 | DCINST_ITS ---
Discharge Instructions Diet Discharge Diet: Light diet - advance as tolerated Activity Discharge Activity: May Not Drive (while taking narcotic pain medications.) May shower in (days): 1 Lifting Restrictions: no lifting >20 lbs x 2 wks, no strenuous exercise for 4 wks Dressing / Incision Call your doctor if your incision/area has: Continuous Slow Oozing, Sudden Increased Bleeding, Increased Pain/ Swelling, Increased Redness, Foul Smelling Discharge and Swelling at the incision site Call your doctor if you observe: Fever of 101 or Higher Remove Dressing in: 2 days Cleanse incision/area with: Soap & Water Additional Dressing/Incision Instructions:: Steri-Strips will fall off in 7 to 10 days, if they do not fall off okay to remove after 10 days. Follow Up Care Please Follow Up With: Bonnie Bush MD When: Call the office for a follow-up appointment 2 weeks; after 5 PM and on the weekends call [phone] with any concerns. Test Results: Test results from this visit will be discussed in further detail at your follow- up appointment, if applicable. Discharge Plan Admission Admit Date/Time: 06/24/22 02:57 Attending Provider: Bonnie Bush Primary Care Provider: Kizzy Parker Discharge Orders/Prescriptions Prescriptions: New oxycodone-acetaminophen 5-325 mg tablet 1 tab PO Q6H PRN (Reason: pain) 3 Days Qty: 10 0RF Continued norethindrone-e.estradiol-iron 1 mg-20 mcg (21)/75 mg (7) tablet 1 tab PO DAILY Label Comments: take 1 tablet by mouth once daily CONTINUOUSLY escitalopram oxalate 10 mg tablet 10 mg PO DAILY Label Comments: take 1 tablet by mouth once daily Referrals / Follow Up: Kizzy Parker MD [Primary Care Provider] - Disposition Disposition (needs filled in before D/C Order can be placed): Home, Self Care
[2022-06-24] MEDS: Acetaminophen 325 MG Tablet 650 MG PO (21:13)
--- NOTE | 2022-06-24 21:23 | NURSING ---
Patient has voided, has eaten jello with no nausea, and her pain is under control.
--- NOTE | 2022-06-24 22:32 | CT_ITS ---
STUDY: CT ABDOMEN AND PELVIS WITH CONTRAST REASON FOR EXAM: Female, 36 years old patient with abdominal pain. RADIATION DOSAGE (If Supplied By Facility): CTDIvol = ( 19 ) mGy, DLP = ( 439.13 ) mGycm TECHNIQUE: Transaxial images were obtained from the dome of the diaphragm to the symphysis pubis with oral contrast. 100 ml of IV Isovue-370 was administered. Sagittal and coronal images were reconstructed. Individualized dose optimization techniques were used for this CT. COMPARISON: Prior comparison studies are not available for review at this time. FINDINGS: The visualized lung bases are unremarkable. The visualized portions of the heart are within normal limits. There is hepatomegaly with diffuse hepatic enlargement. The liver measures up to 18.4 cm in greatest dimension. There is periportal edema. There are multiple gallstones. Normal spleen. Normal pancreas. Normal bilateral adrenal glands. Normal right kidney. Normal left kidney. Normal visualized stomach. There appears to be some thickening of the toth of the proximal small bowel with mild to distention suggesting possible sequelae acute infectious or inflammatory enteritis. There is stool visible throughout most of the colon. The colon is not dilated. There is non-visualization of the appendix. Normal abdominal aorta. There is venous distention of the inferior vena cava (IVC). Normal retroperitoneum. Normal urinary bladder. Normal visualized uterus. Normal abdominal wall. Normal osseous structures. CT/Abdomen/Pelvis WITH Contrast IMPRESSION: 1. Periportal edema may be secondary to overhydration or hepatitis. 2. Findings suggest possible acute infectious or inflammatory neuritis. 3. Cholelithiasis without definite evidence for acute cholecystitis. 4. Hepatomegaly. Electronically Signed: Nasima Hightower MD at 0:56 EDT ,
--- NOTE | 2022-06-25 | GALL_PTH ---
PATIENT: BINTA MORATAYA LOC: MS3 U#:[id number] AGE/SX: 36/F ROOM: [facility] RE06/24/[address]: Dr. Bonnie Bush MD : 1985 BED: 1 DIS: 06/24/2022 SPEC #: [id number] RECD: 06/25/22 11:08 STATUS: STELLA VICKJohnathon #: [id number] SALOMON: 06/25/22 00:[address]: Bonnie Bush DEPT: SURGICAL PATHOLOGY RECD BY: Gabriel Ann ENTERED: 06/25/22 12:08 SP TYPE: ROSALES BROCK DR: Dr. Kizzy Parker MD Tissues: Gallbladder, NOS Procedures: Surgery Specimen Level III HEADER OPERATION: Laparoscopic cholecystectomy PRE-OP DIAGNOSIS: Acute cholecystitis TISSUE SUBMITTED: Gallbladder MICROSCOPIC DIAGNOSIS Gallbladder, cholecystectomy: Chronic cholecystitis and cholelithiasis. SJ:gracia 06/28/2022 MICROSCOPIC DESCRIPTION Slides are reviewed. GROSS DESCRIPTION Received is one container labeled with the patient's name and designated gallbladder. The specimen consists of a previously opened gallbladder measuring 9 cm in length and up to 3.5 cm in diameter. The external surface is pink-mobley, smooth and glistening for the most part. Focally it is granular, hemorrhagic and contains cautery artifact. The gallbladder contains mobley, mucoid bile and two yellowish mulberry stones measuring in aggregate 1 x 0.5 x 0.3 cm and each stone measuring 0.4 and 0.5 cm in greatest dimension. The stones are present in the proximal portion of gallbladder and also impacted in the cystic duct. Also present close to the cystic duct is an ovoid nodule measuring 1 cm in greatest dimension, a possible lymph node. Sections of the gallbladder wall reveal edematous cut surfaces. The gallbladder wall measures up to 1 cm in thickness. [employer] sections from the gallbladder and the cystic duct including entire possible lymph node are submitted in two cassettes. / SJ:rg 06/25/2022 TC:3 CPT: 85640
== END 2022-06-24 22:06 | disposition home or self-care (01) ==
LOC: ED 06-24 03:01 → MS3 06-24 05:20
PROVIDERS: Anesthesiology; Admitting Provider Surgery; Emergency Provider Emergency Medicine; PCP Internal Medicine; Visit Provider Surgery
PROC: (CPT 47610; principal; 2022-06-24 14:30)
DX: K80.12 Calculus of gallbladder with acute and chronic cholecystitis without obstruction (principal); U07.1 COVID-19; Z23 Encounter for immunization; M99.01 Segmental and somatic dysfunction of cervical region; M99.03 Segmental and somatic dysfunction of lumbar region; M99.02 Segmental and somatic dysfunction of thoracic region; M99.04 Segmental and somatic dysfunction of sacral region; M99.05 Segmental and somatic dysfunction of pelvic region
CPT/HCPCS: 47562; 00790; 36415; 74177; 76705; 80048; 80053; 80076; 81001; 83605; 83690; 84443; 84703; 85025; 88304; 93005; 96361; 96365; 96366; 96375; 99218; 99251; 99284; J7030; J7120; Q9967; 90686; A4216; G0378; G0463; J2405

== ENCOUNTER → 2023-03-16 | Outpatient (CLI) | payer OTHER, SELFPAY ==
[2023-03-16 15:58] LABS: Absolute Lymphocyte Count 2.85 X10^3/uL (0.83-4.51); Absolute Neutrophil Count 3.3 X10^3/uL (2.0-7.7); Basophil# 0.03 X10^3/uL; Basophil% 0.4 % (0-1); Eosinophil# 0.22 X10^3/uL; Eosinophils% 3.2 % (0-5); Hematocrit 39.3 % (37-47); Hemoglobin 13.5 g/dL (12.0-15.0); Lymphocyte # 2.85 X10^3/ul (0.83-4.51); Mean Corp Hgb Conc 34.4 g/dL (32-36); Mean Corpuscular Hgb 30.5 pg (27.0-32.0); Mean Corpuscular Volume 88.9 fL (81-99); Mean Platelet Vol. 9.3 fl (6.2-12.0); Monocyte% 7.2 % (0-10); NRBC Flagged by Analyzer 0 % (0-5); Neutrophil # 3.33 X10^3/uL (2.7-7.7); Neutrophil % 47.9 % (47-70); POSITIVE MORPHOLOGY YES; Platelet Count 306 K/mm3 (150-450); RBC Distribution Width SD 42.3 fl (35.1-43.9); Red Blood Count 4.42 M/mm3 (4.2-5.4)
[2023-03-16 16:02] LABS: Differential Indicated SCAN CRITERIA MET
[2023-03-16 16:26] LABS: Differential Comment SCANNED
[2023-03-16 16:34] LABS: Vitamin B12 531 pg/mL (211-911)
[2023-03-16 16:37] LABS: ALB/GLOB Ratio 0.9 RATIO (0.9-2.4); AST(SGOT) 29 U/L (15-37); Alanine Aminotransfer ALT/SGPT 41 U/L (13-56); Albumin, Serum 3.5 g/dL (3.2-5.0); Alkaline Phosphatase 54 U/L (45-117); Anion Gap 6 (5-15); BUN 16 mg/dL (7-18); BUN/Creat Ratio 15.8 RATIO (10-20); Calcium,Total 8.8 mg/dL (8.5-10.1); Chloride 107 mmol/L (98-107); Creatinine, Serum 1.01 mg/dL (0.55-1.02); EST Glomerular Filtration Rate 65 mL/min (>60); Est Glom Filt Rate - Afr Amer 79 mL/min (>60); Globulin 3.8 g/dL (2.2-4.2); Glucose 101 mg/dL (74-106); Potassium 4.3 mmol/L (3.5-5.1); Protein, Total 7.3 g/dL (6.4-8.2); Sodium Level 138 mmol/L (136-145); T4 Free Direct 0.97 ng/dL (0.76-1.46); Thyroid Stim Hormone (TSH) 1.98 uIU/mL (0.358-3.74)
[2023-03-21 03:06] LABS: Methylmalonic Acid Bld 152 nmol/L (0-378)
[2023-03-21 22:06] LABS: Absolute CD4 Helper 1331 /uL (359-1519); Basophils (Absolute) 0.1 x10E3/uL (0.0-0.2); Eosinophils 3 % (Not Estab.); Eosinophils (Absolute) 0.2 x10E3/uL (0.0-0.4); Hematocrit 41.1 % (34.0-46.6); Hemoglobin 13.6 g/dL (11.1-15.9); Immature Granulocytes 0 % (Not Estab.); Immature Granulocytes Absolute 0 x10E3/uL (0.0-0.1); Immunoglobulin A 174 mg/dL (87-352); Immunoglobulin E 49 IU/mL (6-495); Immunoglobulin G 1123 mg/dL (586-1602); Immunoglobulin M 285 mg/dL (26-217); Lymphs 41 % (Not Estab.); Lymphs (Absolute) 2.7 x10E3/uL (0.7-3.1); MCH 29.8 pg (26.6-33.0); MCHC 33.1 g/dL (31.5-35.7); MCV 90 fL (79-97); Monocytes 5 % (Not Estab.); Monocytes (Absolute) 0.3 x10E3/uL (0.1-0.9); Neutrophils 50 % (Not Estab.); Neutrophils (Absolute) 3.3 x10E3/uL (1.4-7.0); Percent % CD4 Pos. Lymph. 49.3 % (30.8-58.5); Platelets 341 x10E3/uL (150-450); RBC Count 4.57 x10E6/uL (3.77-5.28); RDW 13.1 % (11.7-15.4); WBC Count 6.5 x10E3/uL (3.4-10.8)
== END | disposition home or self-care (01) ==
LOC: LAB 15:36
PROVIDERS: PCP Internal Medicine; Referring Provider Internal Medicine; Visit Provider Internal Medicine
DX: R63.5 Abnormal weight gain (principal); R53.83 Other fatigue; Z86.19 Personal history of other infectious and parasitic diseases
CPT/HCPCS: 36415; 80053; 82607; 82784; 82785; 83921; 84439; 84443; 85025; 86361

== ENCOUNTER 2023-08-17 15:01 | Emergency (ER) | payer OTHER, SELFPAY ==
[2023-08-17 15:02] VITALS: BP 183/112; PULSE 78; RESP 16; TEMP 36.9; O2SAT 98; BMI 25.1
--- NOTE | 2023-08-17 15:42 | EX.ED.VIS.HA ---
HPI History of Present Illness Chief Complaint: Headache Informant: patient Narrative Narrative: Patient is a 37-year-old female with history of migraines and preeclampsia presenting with elevated blood pressure and headache. Patient states she woke up on Tuesday morning with a headache. She initially thought it was because she had a late night and was tired but the headache persisted. She notes that did improve with NSAIDs. The headache felt better on Tuesday and Tuesday but was much worse today. She states its in the front of her head, behind her eyes and her temples. Sometimes it radiates to the back of her head. She does have some light sensitivity. She has a history of migraines and states that they feel worse and this feels different. This headache is most reminiscent of when she had preeclampsia. She also notes that she checked her blood pressure at home and has been elevated. Her normal blood pressures around 125 systolic however past few days has been between 145 and 165 systolic. Maximum blood pressure was 174/115. She denies any associated vomiting, neck pain, fever, rash or nasal congestion. She had a cold last week but that has since resolved. She has some associated nausea. She is on control is been on for the past 5 years. Does have a family history of high blood pressure. He associated chest discomfort, shortness of breath, numbness, tingling or other neurologic symptoms. Denies any vision changes. No other complaints or concerns at this time. Did not take anything for her symptoms today. [facility] Medical History Hypothyroidism Home Medications escitalopram oxalate 10 mg tablet 10 mg PO DAILY 06/24/22 [History Last Taken Unknown] norethindrone 1 mg-ethinyl estradiol 20 mcg (21)-iron 75 mg (7) tablet 1 tab PO DAILY 06/24/22 [History Last Taken Unknown] doxycycline monohydrate 100 mg capsule 100 mg PO BID #20 caps 02/19/23 [Rx Last Taken Unknown] Allergy/AdvReac Type Severity Reaction Status Date / Time No Known Allergies Allergy Verified 08/17/23 15:03 Family History Other CVA (cerebral vascular accident) Heart disease High cholesterol Hypertension Surgical History S/P S/P laparoscopic cholecystectomy Social History Smoking Status: Never smoker alcohol intake: never substance use type: does not use what type of physical activity do you participate in: other details: crossfit frequency: 3-4 times per week ROS ROS ED Constitutional Constitutional ED: Denies chills or fever(s) Eyes Eyes: Reports other Details: light sensitivity ; Denies blurry vision or change in vision ENT ENT ED: Denies ear pain, rhinorrhea or sore throat Cardiovascular Cardiovascular: Denies chest pain or palpitations Respiratory/Chest Respiratory/Chest: Denies cough or dyspnea Gastrointestinal Gastrointestinal: Reports nausea; Denies abdominal pain, constipation, diarrhea or vomiting Genitourinary Genitourinary ED: Denies dysuria or hematuria Musculoskeletal Musculoskeletal: Denies arthralgias, myalgias or neck pain Integumentary Denies rash Neurologic Neurologic: Reports headache(s); Denies paresthesias or weakness Psychiatric Psychiatric: Denies anxiety EXAM Physical Exam Const Vital Signs: 08/17/23 15:02 08/17/23 17:48 Temperature 98.4 F Temperature Source Temporal Pulse Rate 78 65 Respiratory Rate 16 14 Blood Pressure 183/112 H 115/78 Blood Pressure Mean 135 90 Pulse Ox 98 99 Oxygen Delivery Method Room Air Room Air Positive well nourished and well developed General Appearance ED: well developed and NAD HEENT Reports normocephalic, TM's clear and moist mucous membranes atraumatic Face and Sinus: Negative for sinus tenderness Tympanic Membrane ED: Yes TM's clear Eyes PERRL and EOMs intact bilaterally Neck supple, no meningeal signs and no JVD Resp normal respiratory effort and clear to auscultation bilaterally Cardio regular rate, regular rhythm and no murmurs Cardio Narrative: 2+ radial and DP pulses GI non-tender and non-distended Extremity normal to inspection and full ROM General Extremety ED: Negative for edema General Extremity: Negative for edema Neuro oriented x3, CN's II-XII intact bilaterally and no sensory deficits noted Sensorium / Orientation: awake and alert Motor Exam: strength 5/5 throughout; Negative for general weakness Psych mental status grossly normal Skin Lesions: no lesions Rashes: no rashes MDM MDM MDM Narrative Medical decision making narrative: Evaluate for elevated blood pressure is well as headache. Headache is not described as a thunderclap headache and low suspicion for subarachnoid hemorrhage. She has a normal neurologic exam at this time I do not think she requires imaging. No report of any trauma. Vital signs significant for high blood pressure but otherwise normal. She is not having chest pain I do not think she requires an EKG. Physical exam not consistent with hypertensive emergency however will obtain CBC, TSH and BMP to look for signs of endorgan damage as well as urinalysis to look for proteinuria. Patient does not have any meningeal signs or infectious symptoms. Patient given a migraine cocktail including Toradol, Compazine and Benadryl as well as IV fluids for symptom relief and will reevaluate blood pressure after headache has improved. Patient reevaluated. Blood pressure now 115/78 and headache is resolved. Suspect hypertension is more a consequence of the headache and discomfort. Work-up largely unremarkable. Creatinine only mildly elevated at 1.03. Given a liter of IV fluids. Will be discharged home to follow-up with her primary care doctor. We will discuss control the possible cause of hypertension. Will bring blood pressure monitor to office visit to make sure it is calibrated appropriately. Given return precautions. Discharged home in stable and improved condition. Lab Data Labs: Laboratory Results - last 24 hr 08/17/23 08/17/23 15:50 16:06 WBC 7.0 RBC 4.36 Hgb 13.0 Hct 38.7 MCV 88.8 MCH 29.8 MCHC 33.6 RDW Std Deviation 42.8 RDW Coeff of Ronit 13.1 Plt Count 289 MPV 9.0 Immature Gran % (Auto) 0.100 Neut % (Auto) 61.3 Lymph % (Auto) 26.3 [place] % (Auto) 10.1 H Eos % (Auto) 1.6 Baso % (Auto) 0.6 Absolute Neuts (auto) 4.3 Absolute Lymphs (auto) 1.83 Nucleated RBC % 0 Sodium 140 Potassium 3.8 Chloride 108 H Carbon Dioxide 28.0 Anion Gap 4 L BUN 16 Creatinine 1.03 H Estim Creat Clear Calc 67.29 Est GFR (MDRD) Af Amer 77 Est GFR (MDRD) Non-Af 64 BUN/Creatinine Ratio 15.5 Glucose 132 H Calcium 8.4 L TSH 2.45 Urine Color Yellow Urine Clarity Clear Urine pH 8.0 Ur Specific [place] 1.010 Urine Protein Negative Urine Glucose (UA) Normal Urine Ketones Negative Urine Occult Blood 25 H Urine Nitrite Negative Urine Bilirubin Negative Urine Urobilinogen Normal Ur Leukocyte Esterase Negative Urine RBC 0 SEEN Urine WBC 0 SEEN Ur Squamous Epith Cells 0-5 SEEN Urine Bacteria 0 SEEN Urine Mucus 0 SEEN Urine Test Negative Discharge Plan Triage Chief Complaint: Headache Other Complaint: Hypertension ED Provider: Laureen Moore Dx/Rx/DC Orders Clinical Impression: Headache, Elevated blood-pressure reading without diagnosis of hypertension Instructions: ED Headache, Tension Prescriptions: No Action doxycycline monohydrate 100 mg capsule 100 mg PO BID Qty: 20 0RF norethindrone-e.estradiol-iron 1 mg-20 mcg (21)/75 mg (7) tablet 1 tab PO DAILY Patient Comments: take 1 tablet by mouth once daily CONTINUOUSLY escitalopram oxalate 10 mg tablet 10 mg PO DAILY Patient Comments: take 1 tablet by mouth once daily Primary Care Provider: Kizzy Parker Referrals: Kizzy Parker MD [Primary Care Provider] - Disposition Disposition: Home, Self Care Discharge Date/Time: 08/17/23 18:52
[2023-08-17 15:58] LABS: Absolute Lymphocyte Count 1.83 X10^3/uL (0.83-4.51); Absolute Neutrophil Count 4.3 X10^3/uL (2.0-7.7); Basophil# 0.04 X10^3/uL; Basophil% 0.6 % (0-1); Eosinophil# 0.11 X10^3/uL; Eosinophils% 1.6 % (0-5); Hematocrit 38.7 % (37-47); Lymphocyte # 1.83 X10^3/ul (0.83-4.51); Lymphocyte % 26.3 % (19-41); Mean Corp Hgb Conc 33.6 g/dL (32-36); Mean Corpuscular Hgb 29.8 pg (27.0-32.0); Mean Corpuscular Volume 88.8 fL (81-99); Monocyte% 10.1 % (0-10); NRBC Flagged by Analyzer 0 % (0-5); Neutrophil # 4.26 X10^3/uL (2.7-7.7); Neutrophil % 61.3 % (47-70); Platelet Count 289 K/mm3 (150-450); RBC Distribution Width CV 13.1 % (11.6-14.6); RBC Distribution Width SD 42.8 fl (35.1-43.9); Red Blood Count 4.36 M/mm3 (4.2-5.4)
[2023-08-17] MEDS: DiphenhydrAMINE 50 MG/ML Syringe 25 MG IV (15:59)
[2023-08-17] MEDS: proCHLORPERazine 10 MG/2 ML Vial IV (15:59)
[2023-08-17] MEDS: Ketorolac 15 MG/ML Vial IV (15:59)
[2023-08-17] MEDS: 0.9% Normal Saline (1000mL) 1,000 ML 1000 ML IV (15:59)
[2023-08-17 16:22] LABS: Internal QC Validated? YES +Cl - CLEAR BKGD; Pregnancy, Urine Negative Negative
[2023-08-17 16:22] LABS: Anion Gap 4 (5-15); BUN 16 mg/dL (7-18); BUN/Creat Ratio 15.5 RATIO (10-20); Calcium,Total 8.4 mg/dL (8.5-10.1); Chloride 108 mmol/L (98-107); Creatinine, Serum 1.03 mg/dL (0.55-1.02); EST Glomerular Filtration Rate 64 mL/min (>60); Est Glom Filt Rate - Afr Amer 77 mL/min (>60); Estimated Creatinine Clearance 67.29 ml/min; Glucose 132 mg/dL (74-106); Potassium 3.8 mmol/L (3.5-5.1); Sodium Level 140 mmol/L (136-145); Thyroid Stim Hormone (TSH) 2.45 uIU/mL (0.358-3.74)
[2023-08-17 16:24] LABS: Bacteria 0 SEEN /hpf (None Seen); Color, Urine Yellow (Yellow); Glucose, Dipstick Normal (Normal); Ketone-Dipstick Negative (Negative); Leukocyte Esterase-Dipstick Negative /ul (Negative); Mucous, Urine 0 SEEN /hpf (<or=2+); Nitrite-Dipstick Negative (Negative); Occult Blood-Urine 25 /ul (Negative); Protein-Dipstick Negative (Negative); Red Blood Cells-Urine 0 SEEN /hpf (0-5); Urine Bilirubin Dipstick Negative (Negative); Urine Clarity Clear (Clear); Urine Urobilinogen Normal (Normal); White Blood Cells 0 SEEN /hpf (0-5)
[2023-08-17 16:33] LABS: Squamous Epithelial Cells - UA 0-5 SEEN /hpf (5-10)
[2023-08-17 17:48] VITALS: BP 115/78; PULSE 65; RESP 14; O2SAT 99
== END 2023-08-17 18:52 | disposition home or self-care (01) ==
PROVIDERS: Emergency Provider Emergency Medicine; PCP Internal Medicine; Visit Provider Emergency Medicine
DX: R51.9 Headache, unspecified (principal); R03.0 Elevated blood-pressure reading, without diagnosis of hypertension
CPT/HCPCS: 80048; 81001; 81025; 84443; 85025; 96361; 96374; 96375; 99285; J7030; A4216

== ENCOUNTER → 2025-02-04 | Outpatient (CLI) | payer OTHER, SELFPAY ==
--- NOTE | 2025-02-04 16:32 | RAD_ITS ---
PROCEDURE: CHEST PA AND LATERAL 02/04/2025 REASON FOR EXAM: CHEST PAIN TECHNIQUE: Frontal and lateral views of the chest. COMPARISON: 04/12/2024 FINDINGS: Hardware: None Heart: The heart size is normal. Mediastinum: The mediastinal contour is unremarkable. Lungs: The lungs are clear. Bones: The bones are unremarkable. RAD/Chest PA and Lateral IMPRESSION: NO ACUTE FINDINGS. Reading Location: [facility]
[2025-02-04 18:18] LABS: Hemoglobin 13.4 g/dL (12.0-15.0); Mean Corp Hgb Conc 34.4 g/dL (32-36); Mean Corpuscular Hgb 29.8 pg (27.0-32.0); Mean Corpuscular Volume 86.7 fL (81-99); Mean Platelet Vol. 9.7 fl (6.2-12.0); Platelet Count 334 K/mm3 (150-450); RBC Distribution Width CV 12.9 % (11.6-14.6); RBC Distribution Width SD 40.9 fl (35.1-43.9); White Blood Count 6.9 K/mm3 (4.4-11.0)
[2025-02-04 18:36] LABS: Erythrocyte Sedimentation Rate 3 mm/hr (0-30)
[2025-02-04 18:42] LABS: CRP 3.26 mg/L (0.0-3.0); Troponin T High Sensitivity 9 ng/L (<=14)
[2025-02-04 19:12] LABS: D-Dimer Quantitative (DVT/PE) < 0.27 FEU/ug/m (0.27-0.49)
== END | disposition home or self-care (01) ==
PROVIDERS: PCP Internal Medicine; Referring Provider Internal Medicine; Visit Provider Internal Medicine
DX: R07.9 Chest pain, unspecified (principal)
CPT/HCPCS: 36415; 71046; 84484; 85027; 85379; 85652; 86140